=== PATIENT | female | born 1950 | race Caucasian/White ===

== ENCOUNTER → 2021-02-21 15:51 | Outpatient (CLI) | payer MEDICARE, BC, SELFPAY ==
--- NOTE | 2021-02-21 16:04 | CT_ITS ---
STUDY: CT SCAN LOWER EXTREMITY RIGHT.[facility] protocol. REASON FOR EXAM: Female, 70 years old. VARUS Deformity, not ELSEWHERE Classified, r KNEE RADIATION DOSAGE (If Supplied By Facility): CTDIvol = ( 19.20 ) mGy, DLP = ( 1284.14 ) mGycm. Individualized dose optimization techniques were used for this CT.? TECHNIQUE: Multiple axial tomographic images of the right hip joint, right knee joint and right ankle joints were obtained. Coronal and sagittal reconstructions obtained as well. COMPARISON: None. FINDINGS: Imaging of the right hip joint was obtained. There is mild degree of the joint space narrowing. Imaging of the right knee joint was obtained. There is a marked degree of joint space narrowing with tiny subchondral cysts involving the medial compartment of knee joint with evidence of the transverse perforation of the medial femoral condyle and medial tibial plateau. Mild to moderate degree of joint space narrowing of the patellofemoral joint with spur formation. Imaging of the ankle joint was obtained. No significant abnormality is seen. CT/Extremity Lower without Contra IMPRESSION: Marked degree of joint space narrowing and osteoarthritis involving the medial compartment of knee joint. Mild degree of degenerative changes of the patellofemoral joint. Electronically Signed: Aki Salazar MD at 12:36 EDT , Service support ,
== END ==
PROVIDERS: PCP Preventive Medicine Occupational Medicine; Referring Provider Specialist; Visit Provider Specialist
DX: M21.161 Varus deformity, not elsewhere classified, right knee (principal)
CPT/HCPCS: 73700

== ENCOUNTER → 2021-03-03 11:36 | Outpatient (CLI) | payer MEDICARE, BC, SELFPAY ==
--- NOTE | 2021-03-03 11:58 | EKG12_ITS ---
Test Reason : PREOP Blood Pressure : / mmHG Vent. Rate : 064 BPM Atrial Rate : 064 BPM P-R Int : 162 ms QRS Dur : 084 ms QT Int : 422 ms P-R-T Axes : 056 -06 078 degrees QTc Int : 435 ms Normal sinus rhythm Nonspecific ST-segment abnormality Confirmed by RAPHAEL ABERNATHY, JACQUI ([id number]), food editor LENI JEFFRIES ([id number]) on 03/06/2021 9:16:43 AM Referred By: Isma Romero Confirmed By:JACQUI LIM MD
[2021-03-03 12:29] LABS: Absolute Lymphocyte Count 1.24 X10^3/uL (0.83-4.51); Absolute Neutrophil Count 4.9 X10^3/uL (2.0-7.7); Basophil# 0.11 X10^3/uL; Basophil% 1.6 % (0-1); Eosinophil# 0.19 X10^3/uL; Eosinophils% 2.7 % (0-5); Hematocrit 44.3 % (37-47); Hemoglobin 14.1 g/dL (12.0-15.0); Lymphocyte # 1.24 X10^3/ul (0.83-4.51); Lymphocyte % 17.7 % (19-41); Mean Corp Hgb Conc 31.8 g/dL (32-36); Mean Corpuscular Hgb 29.7 pg (27.0-32.0); Mean Corpuscular Volume 93.3 fL (81-99); Mean Platelet Vol. 10.8 fl (6.2-12.0); Monocyte# 0.55 X10^3/uL; Monocyte% 7.9 % (0-10); NRBC Flagged by Analyzer 0 % (0-5); Neutrophil # 4.88 X10^3/uL (2.7-7.7); Neutrophil % 69.8 % (47-70); Platelet Count 245 K/mm3 (150-450); RBC Distribution Width CV 13.5 % (11.6-14.6); RBC Distribution Width SD 46.3 fl (35.1-43.9); Red Blood Count 4.75 M/mm3 (4.2-5.4)
[2021-03-03 12:48] LABS: Anion Gap 6 (5-15); BUN 28 mg/dL (7-18); BUN/Creat Ratio 18.1 RATIO (10-20); Calcium,Total 9.3 mg/dL (8.5-10.1); Chloride 106 mmol/L (98-107); Creatinine, Serum 1.55 mg/dL (0.55-1.02); EST Glomerular Filtration Rate 35 mL/min (>60); Est Glom Filt Rate - Afr Amer 43 mL/min (>60); Glucose 115 mg/dL (74-106); Potassium 4.7 mmol/L (3.5-5.1); Sodium Level 139 mmol/L (136-145)
== END ==
PROVIDERS: PCP Preventive Medicine Occupational Medicine; Referring Provider Physician Assistant Surgical; Visit Provider Physician Assistant Surgical
DX: Z01.810 Encounter for preprocedural cardiovascular examination (principal); Z11.59 Encounter for screening for other viral diseases
CPT/HCPCS: 36415; 80048; 82040; 85025; 87426; 93005; C9803

== ENCOUNTER 2021-08-07 05:47 | Inpatient (IN) | payer MEDICARE, BC, SELFPAY ==
[2021-08-07] VITALS (15 sets, daily range): BP systolic 153–159; BP diastolic 66–81; PULSE 82–109; RESP 20–34; TEMP 36.8–37.8; O2SAT 77–98; BMI 35.8
--- NOTE | 2021-08-07 05:53 | RAD_ITS ---
STUDY: X-RAY CHEST REASON FOR EXAM: Female, 70 years old. Cough, hypoxia and scattered rales TECHNIQUE: AP COMPARISON: 09/30/2016 FINDINGS: The lungs demonstrate patchy bilateral pulmonary opacities. There is no demonstrated pleural abnormality. Normal size heart. Normal mediastinum and mesha. Normal visualized pulmonary arteries. Normal visualized aortic arch and descending thoracic aorta. Normal visualized thoracic spine. Normal visualized ribs, clavicles, and shoulders. There is no demonstrated abnormality of the visualized soft tissue structures of the upper abdomen. RAD/Chest 1 View (Portable) IMPRESSION: Patchy bilateral lung opacities concerning for underlying pneumonia. Electronically Signed: Jam Sands MD at 6:21 EST Tel , Service support ,
--- NOTE | 2021-08-07 05:54 | EKG12_ITS ---
Test Reason : SOB Blood Pressure : / mmHG Vent. Rate : 101 BPM Atrial Rate : 101 BPM P-R Int : 140 ms QRS Dur : 084 ms QT Int : 338 ms P-R-T Axes : 037 -04 072 degrees QTc Int : 438 ms Sinus tachycardia Otherwise normal ECG Confirmed by RAPHAEL ABERNATHY, JACQUI ([id number]), sound editor MARY ARMAS ([id number]) on 08/08/2021 1:52:40 PM Referred By: Confirmed By:JACQUI LIM MD
--- NOTE | 2021-08-07 05:55 | EDS_ITS ---
HPI History of Present Illness Chief Complaint: Shortness of Breath Detail of Chief Complaint: Dyspnea, upper respiratory symptoms, productive cough, diarrhea Informant: patient Onset/Context/Timing Onset: Days (July 30) Context: Sudden Onset Timing: Continuous Quality: Nonproductive cough with shortness of breath and dyspnea on exertion Location: Respiratory Current Severity: Moderate Maximum Severity: Severe Worsened by: Activity Relieved by: Nothing Associated Symptoms Associated Symptoms: Upper respiratory symptoms and loss of appetite Narrative Narrative: Patient is an elderly obese woman with multiple medical problems who presents with upper respiratory symptoms that started yesterday. She denies fever. She does report head pain. She does report congestion denies rhinorrhea or postnasal drainage. She does endorse sore throat. She does have a cough which is productive. She has not noted blood. She is short of breath at rest with increased shortness of breath with minimal activity. She reports decrease appetite, nausea and diarrhea. She denies blood or mucus in her diarrhea. She denies leg swelling or discoloration. She has not noted a rash. She does report aches. Patient has not been vaccinated Prior similar symptoms: No Recent Illness/Hospitalization: No [facility] Medical History (Updated 08/07/21 @ 06:[address] Rudy Dover MD) Abdominal pain Acid reflux Anemia Arthritis Diarrhea Gallbladder problem Glaucoma Hemorrhoid Hx of blood clots Hypertension Nausea Thyroid disease Ulcer Home Medications pantoprazole 40 mg PO DAILY 08/23/13 [History Last Taken 09/04/16 03:00] latanoprost 1 drp EACH EYE QHS 05/12/15 [History Last Taken Unknown] levothyroxine 25 mcg PO SUTUTHSA 05/12/15 [History Last Taken 09/04/16 03:00] omega 4-rwl-pzu-fish oil 1,200 mg PO DAILY 05/12/15 [History Last Taken 08/09/17] timolol maleate 1 drp EACH EYE BID 05/12/15 [History Last Taken Unknown] vitamin E 400 unit PO DAILY 05/12/15 [History Last Taken Unknown] calcium carbonate 1,000 iu PO DAILY 03/05/16 [History Last Taken Unknown] vitamin B comp and C no.3 1 ea PO DAILY 03/05/16 [History Last Taken Unknown] cholecalciferol (vitamin D3) 2,000 unit PO BID 09/03/16 [History Last Taken Unknown] digestive 8-L.acidoph-pectin 1 ea PO BID 01/15/17 [History Last Taken Unknown] trazodone 150 mg tablet 75 mg PO QHS tab 07/17/17 [History Last Taken Unknown] amlodipine 5 mg-benazepril 20 mg capsule 1 cap PO DAILY 05/12/20 [History Last Taken Unknown] celecoxib 200 mg capsule 200 mg PO BID cap 05/12/20 [History Last Taken Unknown] tramadol 50 mg tablet 50 mg PO DAILY 05/12/20 [History Last Taken Unknown] Plant Enzymes 1 dose PO/SL TIDCM 08/07/21 [History Last Taken Unknown] Tumeric 1 cap PO/SL BID 08/07/21 [History Last Taken Unknown] acetaminophen 650 mg PO Q4H PRN 08/07/21 [History Last Taken Unknown] ascorbic acid (vitamin C) [Vitamin C] 500 mg PO DAILY 08/07/21 [History Last Taken Unknown] cholecalciferol (vitamin D3) [Vitamin D3] 15 mcg PO DAILY 08/07/21 [History Last Taken Unknown] cinnamon bark [Cinnamon] 500 mg PO DAILY 08/07/21 [History Last Taken Unknown] cranberry juice 8 ml PO DAILY 08/07/21 [History Last Taken Unknown] magnesium 400 mg PO DAILY 08/07/21 [History Last Taken Unknown] Allergy/AdvReac Type Severity Reaction Status Date / Time bee venom protein (honey bee) Allergy Swelling Verified 08/07/21 05:55 diphenhydramine HCl Allergy Unknown Verified 08/07/21 05:55 [From Benadryl] gluten Allergy Other Verified 08/07/21 05:55 milk Allergy Food Verified 08/07/21 05:55 Allergy propoxyphene napsylate AdvReac Other Verified 08/07/21 05:55 [From Darvocet-N] Family History Mother Arthritis Heart disease Hypertension High cholesterol CVA (cerebral vascular accident) Thyroid disorder Sister Arthritis Father Heart disease Brother Arthritis Hypertension Surgical History History of ligation of vein Port catheter in place Ruptured disk S/P cataract surgery S/P cholecystectomy S/P tonsillectomy S/P tubal ligation Social History (Updated 08/07/21 @ 05:[address] Rudy Dover MD) household members: spouse Smoking Status: Never smoker second hand exposure: No alcohol intake: never substance use type: does not use caffeine: No seatbelt use: always ROS ROS ED Constitutional Constitutional ED: Reports chills; Denies fever(s), sweats or weight loss Eyes Eyes: Denies blurry vision, change in vision or diplopia ENT ENT ED: Reports sore throat; Denies ear pain or rhinorrhea Cardiovascular Cardiovascular: Denies chest pain, orthopnea, palpitations or paroxysmal nocturnal dyspnea Respiratory/Chest Respiratory/Chest: Reports cough, dyspnea, dyspnea on exertion and sputum; Denies orthopnea or paroxysmal nocturnal dyspnea Gastrointestinal Gastrointestinal: Reports diarrhea and nausea; Denies abdominal pain, constipation, melena or vomiting Genitourinary Genitourinary ED: Denies dysuria, hematuria or urinary frequency Musculoskeletal Musculoskeletal: Reports arthralgias and myalgias; Denies back pain or neck pain Integumentary Denies rash Neurologic Neurologic: Reports weakness; Denies headache(s) or paresthesias Hematologic/Lymphatic Hematologic/Lymphatic: Denies anemia, easy bleeding or easy bruising EXAM Physical Exam Const Vital Signs: 08/07/21 05:48 08/07/21 05:51 08/07/21 05:56 Temperature 100.1 F H 100.1 F H Temperature Source Oral Oral Pulse Rate 109 H 109 H Respiratory Rate 34 H 34 H Respiratory Effort Short of Breath Labored Blood Pressure 157/81 H 157/81 H Blood Pressure Mean 106 106 Pulse Ox 77 77 Oxygen Delivery Method Room Air Nasal Cannula Nasal Cannula Oxygen Flow Rate (L/min) 10 10 08/07/21 05:57 08/07/21 06:08 Temperature Temperature Source Pulse Rate Respiratory Rate Respiratory Effort Blood Pressure Blood Pressure Mean Pulse Ox 97 98 Oxygen Delivery Method Nasal Cannula Nasal Cannula Oxygen Flow Rate (L/min) 10 8 Positive well nourished, well developed and obese General Appearance ED: well developed, cyanotic and other Patient appears ill. She has central cyanosis. She appears in mild respiratory distress. ; Negative for diaphoretic, NAD or pallor Nutritional Appearance: obese HEENT Reports dry mucous membranes HEENT Narrative: Ears normal. Nares patent. Negative for trauma or tenderness Mouth ED: Yes dry mucous membranes Mouth: dry mucous membranes Eyes PERRL and EOMs intact bilaterally General Eye ED: Negative for pale conjunctiva or scleral icterus Neck no lymphadenopathy, supple and no JVD General: Negative for tenderness Chest Wall inspection of chest normal Resp No normal respiratory effort and No clear to auscultation bilaterally Auscultation: rales bilateral (Left greater than right lower lung field) lower and diminished lung sounds; Negative for wheezes Cardio regular rhythm, S1 normal heart sound, S2 normal heart sound and no murmurs Rate: tachycardic GI normal to inspection, nondistended, normoactive bowel sounds and non-tender Palpation: soft Back/Spine no CVA tenderness Thoracic Spine / Upper Back: Negative for paraspinal muscle tenderness Extremity normal to inspection General Extremety ED: Negative for tenderness Neuro oriented x3 and CN's II-XII intact bilaterally Sensorium / Orientation: alert Psych mental status grossly normal Skin no rashes or lesions noted and no wounds General Skin Exam: Negative for jaundice or pallor MDM MDM MDM Narrative Medical decision making narrative: Patient with hypoxia and persistent nonproductive cough in the ER. Concern patient has COVID-[address] and respiratory precautions, EKG to rule out cardiac ischemia, chest x-ray to confirm suspicion for pneumonia, CMP to assess renal function, anion gap and electrolytes as well as liver enzymes. Since clinical suspicion is high for COVID she received 6 mg of Decadron. She is presently on 10 L of oxygen since her initial pulse ox of 70%. Will obtain ABG to assess acid-base status and CO2. Lab Data Attestation: I reviewed the patient's lab results. Lab results narrative: ABG on 10 L reveals no significant acid-base disturbance. pH 7.44, PCO2 30, PO2 63.6, bicarb 20.4, base excess -3.7 and saturation 93.1% on 10 L. This does reveal a significant AA gradient. CBC is remarkable for demargination. White count is normal. H&H is unremarkable. Comprehensive metabolic panel is remarkable for mild hyponatremia. Creatinine is elevated and consistent with prior creatinine levels. Glucose is elevated. Albumin is low. Lactate is normal. Labs: Laboratory Results - last 24 hr 08/07/21 08/07/21 08/07/21 06:00 06:00 06:00 WBC 9.1 RBC 5.05 Hgb 14.2 Hct 44.3 MCV 87.7 MCH 28.1 MCHC 32.1 RDW Std Deviation 45.0 H RDW Coeff of Jaya 14.0 Plt Count 211 MPV 10.6 Immature Gran % (Auto) 1.200 H Neut % (Auto) 89.9 H Lymph % (Auto) 5.6 L [place] % (Auto) 3.1 Eos % (Auto) 0.0 Baso % (Auto) 0.2 Absolute Neuts (auto) 8.2 H Absolute Lymphs (auto) 0.51 L Nucleated RBC % 0 Sodium 135 L Potassium 3.8 Chloride 102 Carbon Dioxide 23.0 Anion Gap 10 BUN 20 H Creatinine 1.51 H Estim Creat Clear Calc 33.38 Est GFR (MDRD) Af Amer 44 L Est GFR (MDRD) Non-Af 36 L BUN/Creatinine Ratio 13.2 Glucose 190 H Lactic Acid 1.0 Calcium 8.8 Total Bilirubin 0.50 AST 53 H ALT 36 Alkaline Phosphatase 153 H Total Protein 7.9 Albumin 2.9 L Globulin 5.0 H Albumin/Globulin Ratio 0.6 L COVID test is positive. ABG Data ABG results: ABG 08/07/21 06:07 Specimen Type ART Sample Site R Radial pH 7.44 Bicarbonate Actual 20.4 L Total CO2 21 Base Excess -4 L O2 Saturation 93 L ABG pCO2 30.1 L ABG pO2 64 L Fabian Test Positive O2 Delivery Device Cannula Liter Flow 10.0 Radiography Chest X-Ray - ED: 1 View and Read by ED Physician (Chest x-ray was interpreted by me at 0608. Patient has multilobar patchy predominantly peripheral infiltrates consistent with COVID. Cardiac silhouette is slightly obscured. Size is unremarkable. Osseous structures unremarkable.) Diagnostic Testing: Clinical Impression(s) from Imaging Studies Chest X-Ray 08/07/21 05:53 IMPRESSION: Patchy bilateral lung opacities concerning for underlying pneumonia. Electronically Signed: Jam Sands MD at 6:21 EST Tel , Service support , EKG Initial EKG: Attestation: I personally reviewed and interpreted this EKG as follows: Interpretation: Sinus Tachycardia (Ventricular rate is 101. TX interval 140 ms. QS duration 84 ms. QT duration 338 ms. [place] is normal. Other than the tachycardia the EKG is unremarkable.) Critical Care Time Critical Care Time: Yes Critical care time (excluding procedures): 30-74 minutes (32), Including time spent: (History, physical, documentation, review of prior records, interpretation of laboratory results and initiation of therapy), Discussing w/Patient &/or Family/Automatic Engraver (Initially spoke with patient. Spoke with after he arrived.), Discussing w/Consultants and Arranging Admission or Transfer Discharge Plan Dx/Rx/DC Orders Clinical Impression: Acute respiratory failure with hypoxia, Pneumonia due to 2019 novel coronavirus, Sepsis due to COVID-19, Chronic kidney disease (CKD) stage G3a/A1, moderately decreased glomerular filtration rate (GFR) between 45-59 mL/min/1.73 square meter and albuminuria creatinine ratio less than 30 mg/g, Acute hyperglycemia Disposition Disposition: Acute Care [facility]
[2021-08-07 06:07] LABS: Absolute Lymphocyte Count 0.51 X10^3/uL (0.83-4.51); Absolute Neutrophil Count 8.2 X10^3/uL (2.0-7.7); Basophil# 0.02 X10^3/uL; Basophil% 0.2 % (0-1); Hematocrit 44.3 % (37-47); Hemoglobin 14.2 g/dL (12.0-15.0); Lymphocyte # 0.51 X10^3/ul (0.83-4.51); Lymphocyte % 5.6 % (19-41); Mean Corp Hgb Conc 32.1 g/dL (32-36); Mean Corpuscular Hgb 28.1 pg (27.0-32.0); Mean Corpuscular Volume 87.7 fL (81-99); Mean Platelet Vol. 10.6 fl (6.2-12.0); Monocyte# 0.28 X10^3/uL; Monocyte% 3.1 % (0-10); NRBC Flagged by Analyzer 0 % (0-5); Neutrophil # 8.22 X10^3/uL (2.7-7.7); Neutrophil % 89.9 % (47-70); POSITIVE DIFFERENTIAL YES; POSITIVE MORPHOLOGY YES; Platelet Count 211 K/mm3 (150-450); Red Blood Count 5.05 M/mm3 (4.2-5.4); White Blood Count 9.1 K/mm3 (4.4-11.0)
[2021-08-07] MEDS: 0.9% Normal Saline 1,000 ML 1000 ML IV (06:07)
[2021-08-07 06:08] LABS: Differential Indicated SCAN CRITERIA MET
[2021-08-07] MEDS: dexAMETHasone 10 MG/ML Vial 6 MG IV (06:08)
[2021-08-07 06:11] LABS: Allen Test Positive; Base Excess -4 mmol/L (-2 to +2); Bicarbonate 20.4 mmol/L (22-26); Blood Gas Specimen Type ART; O2 Delivery Device Cannula; PO2 64 mmHG (75-100); SITE R Radial; SO2 93 % (95-99); Total Carbon Dioxide 21 mmol/L; pCO2 30.1 mmHg (35-45); pH 7.44 (7.35-7.45)
[2021-08-07 06:21] LABS: ALB/GLOB Ratio 0.6 RATIO (0.9-2.4); AST(SGOT) 53 U/L (15-37); Alanine Aminotransfer ALT/SGPT 36 U/L (13-56); Albumin, Serum 2.9 g/dL (3.2-5.0); Alkaline Phosphatase 153 U/L (45-117); Anion Gap 10 (5-15); BUN 20 mg/dL (7-18); BUN/Creat Ratio 13.2 RATIO (10-20); Calcium,Total 8.8 mg/dL (8.5-10.1); Chloride 102 mmol/L (98-107); Creatinine, Serum 1.51 mg/dL (0.55-1.02); EST Glomerular Filtration Rate 36 mL/min (>60); Est Glom Filt Rate - Afr Amer 44 mL/min (>60); Estimated Creatinine Clearance 33.38 ml/min; Glucose 190 mg/dL (74-106); Potassium 3.8 mmol/L (3.5-5.1); Protein, Total 7.9 g/dL (6.4-8.2); Sodium Level 135 mmol/L (136-145)
--- NOTE | 2021-08-07 07:15 | HP.PCM.HOS_ITS ---
HPI - General General Date of Admission: 08/07/21 Date of Service: 08/07/21 Chief Complaint: Shortness of breath HPI Narrative CAROLINA SINGH, is a 70 F who presents shortness of breath. Patient states this started on 30 July. In addition to shortness of breath patient complains of progressive generalized weakness persistent cough nausea and diarrhea. Presented to the emergency department in view of worsening symptoms. She tested positive for COVID. Chest x-ray obtained demonstrated patchy bilateral lung opacities. Admitted to monitored bed in view of significant hypoxia for subsequent management [facility] Medical History Abdominal pain Acid reflux Anemia Arthritis Diarrhea Gallbladder problem Glaucoma Hemorrhoid Hx of blood clots Hypertension Nausea Thyroid disease Ulcer Home Medications pantoprazole 40 mg PO DAILY 08/23/13 [History Last Taken 09/04/16 03:00] latanoprost 1 drp EACH EYE QHS 05/12/15 [History Last Taken Unknown] levothyroxine 50 mcg PO DAILY 05/12/15 [History Last Taken 09/04/16 03:00] omega 4-rst-fzt-fish oil 1,200 mg PO BID 05/12/15 [History Last Taken 08/09/17] timolol maleate 1 drp EACH EYE BID 05/12/15 [History Last Taken Unknown] vitamin E 400 unit PO DAILY 05/12/15 [History Last Taken Unknown] calcium carbonate 1,000 iu PO DAILY 03/05/16 [History Last Taken Unknown] vitamin B comp and C no.3 1 ea PO DAILY 03/05/16 [History Last Taken Unknown] cholecalciferol (vitamin D3) 1,000 unit PO DAILY 09/03/16 [History Last Taken Unknown] digestive 8-L.acidoph-pectin 1 ea PO DAILY 01/15/17 [History Last Taken Unknown] trazodone 150 mg tablet 75 mg PO QHS tab 07/17/17 [History Last Taken Unknown] amlodipine 5 mg-benazepril 20 mg capsule 1 cap PO DAILY 05/12/20 [History Last Taken Unknown] celecoxib 200 mg capsule 200 mg PO DAILY cap 05/12/20 [History Last Taken Unknown] tramadol 50 mg tablet 50 - 100 mg PO Q8H PRN PRN 05/12/20 [History Last Taken Unknown] Plant Enzymes 1 dose PO/SL TIDCM 08/07/21 [History Last Taken Unknown] Tumeric 1 cap PO/SL BID 08/07/21 [History Last Taken Unknown] acetaminophen 650 mg PO Q4H PRN 08/07/21 [History Last Taken Unknown] ascorbic acid (vitamin C) [Vitamin C] 500 mg PO DAILY 08/07/21 [History Last Taken Unknown] cholecalciferol (vitamin D3) [Vitamin D3] 15 mcg PO DAILY 08/07/21 [History Last Taken Unknown] cinnamon bark [Cinnamon] 500 mg PO DAILY 08/07/21 [History Last Taken Unknown] cranberry juice 8 ml PO DAILY 08/07/21 [History Last Taken Unknown] magnesium 400 mg PO DAILY 08/07/21 [History Last Taken Unknown] Allergy/AdvReac Type Severity Reaction Status Date / Time bee venom protein (honey bee) Allergy Swelling Verified 08/07/21 05:55 diphenhydramine HCl Allergy Unknown Verified 08/07/21 05:55 [From Benadryl] gluten Allergy Other Verified 08/07/21 05:55 milk Allergy Food Verified 08/07/21 05:55 Allergy propoxyphene napsylate AdvReac Other Verified 08/07/21 05:55 [From Darvocet-N] Family History Mother Arthritis Heart disease Hypertension High cholesterol CVA (cerebral vascular accident) Thyroid disorder Sister Arthritis Father Heart disease Brother Arthritis Hypertension Surgical History History of ligation of vein Port catheter in place Ruptured disk S/P cataract surgery S/P cholecystectomy S/P tonsillectomy S/P tubal ligation Social History household members: spouse Smoking Status: Never smoker second hand exposure: No alcohol intake: never substance use type: does not use caffeine: No seatbelt use: always ROS ROS Narrative GENERAL: fever, chills, weight loss, HEENT: sinus congestion, or drainage, RESPIRATORY: cough, sputum production, CARDIAC: denies chest pain, palpitations, GASTROINTESTINAL: denies abdominal pain, nausea, GENITOURINARY: denies dysuria, urgency, frequency, EXTREMITY: denies swelling MUSCULOSKELETAL: denies current joint pain NEUROLOGIC: denies focal numbness, weakness, HEMATOLOGIC: denies easy bruising INTEGUMENT: denies rashes PSYCHIATRIC: denies suicidal or homicidal ideation Vital Signs Vital Signs Vital Signs: 08/07/21 05:48 08/07/21 05:51 08/07/21 05:56 Temperature 100.1 F H 100.1 F H Temperature Source Oral Oral Pulse Rate 109 H 109 H Respiratory Rate 34 H 34 H Respiratory Effort Short of Breath Labored Blood Pressure 157/81 H 157/81 H Blood Pressure Mean 106 106 Pulse Ox 77 77 Oxygen Delivery Method Room Air Nasal Cannula Nasal Cannula Oxygen Flow Rate (L/min) 10 10 08/07/21 05:57 08/07/21 06:08 Temperature Temperature Source Pulse Rate Respiratory Rate Respiratory Effort Blood Pressure Blood Pressure Mean Pulse Ox 97 98 Oxygen Delivery Method Nasal Cannula Nasal Cannula Oxygen Flow Rate (L/min) 10 8 Weight Weight: 100.7 kg Body Mass Index (BMI) 35.8 Physical Exam Narrative GENERAL: cooperative HEENT: Atraumatic; EYES; Anicteric, Normal Conjunctiva NECK; supple, normal thyroid, RESPIRATORY: Diminished to auscultation CARDIOVASCULAR: Regular S1 S2, GI: soft, normoactive bowel sounds, : No Renal angle tenderness; EXTREMITIES: No edema, no clubbing, MUSCULOSKELETAL: no muscle waisting NEURO: Awake; no lateralizing signs. SKIN: No Rash PSYCH; Flat affect Results Lab / Micro Data Result Diagrams: 08/07/21 06:00 08/07/21 06:00 Labs: Laboratory Results - last 24 hr 08/07/21 06:00: WBC 9.1, RBC 5.05, Hgb 14.2, Hct 44.3, MCV 87.7, MCH 28.1, MCHC 32.1, RDW Std Deviation 45.0 H, RDW Coeff of Jaya 14.0, Plt Count 211, MPV 10.6, Immature Gran % (Auto) 1.200 H, Neut % (Auto) 89.9 H, Lymph % (Auto) 5.6 L, [place] % (Auto) 3.1, Eos % (Auto) 0.0, Baso % (Auto) 0.2, Absolute Neuts (auto) 8.2 H, Absolute Lymphs (auto) 0.51 L, Nucleated RBC % 0 08/07/21 06:00: Sodium 135 L, Potassium 3.8, Chloride 102, Carbon Dioxide 23.0, Anion Gap 10, BUN 20 H, Creatinine 1.51 H, Estim Creat Clear Calc 33.38, Est GFR (MDRD) Af Amer 44 L, Est GFR (MDRD) Non-Af 36 L, BUN/Creatinine Ratio 13.2, Glu cose 190 H, Calcium 8.8, Total Bilirubin 0.50, AST 53 H, ALT 36, Alkaline Phosphatase 153 H, Total Protein 7.9, Albumin 2.9 L, Globulin 5.0 H, Albumin/Globulin Ratio 0.6 L 08/07/21 06:00: Lactic Acid 1.0 Micro: Microbiology 08/07/21 06:05 Nasal Secretion SARS-CoV-2 Antigen (Rapid) - Final SARS-CoV-2 (COVID 19) ABG Data ABG results: ABG 08/07/21 06:07 Specimen Type ART Sample Site R Radial pH 7.44 Bicarbonate Actual 20.4 L Total CO2 21 Base Excess -4 L O2 Saturation 93 L ABG pCO2 30.1 L ABG pO2 64 L Fabian Test Positive O2 Delivery Device Cannula Liter Flow 10.0 Radiology Impression Chest X-Ray 08/07/21 05:53 IMPRESSION: Patchy bilateral lung opacities concerning for underlying pneumonia. Electronically Signed: Jam Sands MD at 6:21 EST Tel , Service support , Assessment & Plan Assessment/Plan (1) Pneumonia due to 2019 novel coronavirus: (2) Acute respiratory failure with hypoxia: PLAN: Patient is a 70-year-old lady unvaccinated against COVID-19 presenting with an 8-day history of progressive shortness of breath with associated cough 1. Acute hypoxic respiratory failure ? Secondary to COVID-19 pneumonia admitted to regular nursing floor placed on supplemental oxygen started on Decadron and remdesivir. Patient progressed being monitored with daily CBC BMPs as well as D-dimer LDH and CRP is 2. COVID-19 pneumonia ? Management as described above 3. Chronic kidney disease stage IIIa ? Patient creatinine at baseline. Plan is to monitor closely in view of patient presentation. Patient will be monitored with daily BMPs 4. Hypothyroidism ? On levothyroxine did continue 5. Hyperglycemia ? Patient not a known hypertensive order hemoglobin A1c. Also placed on Accu- Cheks before meals and at bedtime in view of patient being on concomitant steroid 6. Essential hypertension ? Did continue with home meds with plan to adjust doses if required 7. DVT prophylaxis ? SC Lovenox dose adjusted for kidney function Advance planning; did discuss with the patient and family regarding advanced directives as well as CODE STATUS. Did explain the various scenarios involved ( FULL CODE, DNR CCA, DNR CCA with no intubation, and DNR CC and what each meant) patient elected full code with CPR and intubation if needed. Order was placed. Time spent on discussion 18 minutes. Charges/Coding Visit Charges Inpatient E&M: 21852 Init Hosp L3 Procedures Hospitalists Procedures: 41871 Advncd Care Plan 30 Min
--- NOTE | 2021-08-07 09:20 | NURSING ---
Pandemic Documentation Initiated Emergency Documentation Start: 08/07/21 09:18 Freq: ONCE Status: Active Protocol: Created 08/07/21 09:19 (Rec: 08/07/21 09:19 [id number])
--- NOTE | 2021-08-07 10:50 | CASEMGMT ---
KARLIE RESENDEZ Assessment: Face to Face with pt for initial transition planning/care coordination assessment. RN MAL introduced self and role at [facility], pt voices understanding and consents to assessment. Pt is A/O x4 and answers all questions appropriately at this time. Pt lying in bed with O2 on in no distress. Care providers, pharmacy, and demographics verified/updated. Admitting Dx: acute hypoxemic resp failure secondary to COVID PCP:Jessica Specialists: labor delivery specialist Preferred [facility]acy: [facility] Insurance: Cameron GALLEGOS Prescription Benefit: yes LW/HPOA: Pt denies having a LW/DPOA and denies need for info regarding AD. LNOK: Robert Andino, Living Arrangements: Pt lives with in a single story house with 3-4 steps to enter without a rail. Pt reports being I in ADL's and denies concerns at home. Pt states currently she is too weak to even get out of bed. Transportation: Pt drives self and denies concerns with transportation. DME/HHC/SNF: Pt has a cane and walker but she does not use. Recommended pt obtain a pulse ox at home. Pt denies previous HHC or SNF stays. Discussed HHC with pt as she reports she is very weak. Pt states she may be agreeable to this. She wants to wait and see how she does in the hospital. Pt states no further concerns/needs. CM to follow. Advised pt to ask CM if any further question/concerns/needs arise, voices understanding. Pt first test positive for COVID at [facility]. Pt states her has not been tested. She is able to quarantine from him using separate bedrooms and bathrooms. Pt has family who can provide groceries and supplies while in quarantine. Provided pt with a local in network list of DME companies should pt be dc'd on O2, pt denies preference. Pt Goal: Home Plan:Home, follow for HHC and O2.
[2021-08-07] MEDS: Ascorbic Acid 500 MG Tablet PO (11:00)
[2021-08-07] MEDS: Calcium (Elemental) 500 MG Tablet PO (11:00)
[2021-08-07] MEDS: Levothyroxine 50 MCG Tablet PO (11:00)
[2021-08-07] MEDS: Magnesium Chloride 64 MG Delay Rel.Tablet 128 MG PO (11:00)
[2021-08-07] MEDS: Enoxaparin 30 MG/0.3 ML Syringe SC ×2 (11:00→22:40)
[2021-08-07] MEDS: Lisinopril 20 MG Tablet PO (11:01)
[2021-08-07] MEDS: Cholecalciferol (VIT D3) 25 MCG TABLET (1,000 UNITS) 50 MCG PO (11:01)
[2021-08-07] MEDS: Pantoprazole Sodium 40 MG Tablet PO (11:01)
[2021-08-07] MEDS: amLODIPine 5 MG Tablet PO (11:01)
[2021-08-07] MEDS: Vitamin B Comp W-C Capsule 1 CAP PO (11:01)
[2021-08-07] MEDS: Acetaminophen 325 MG Tablet 650 MG PO ×2 (12:57→23:25)
[2021-08-07 13:33] LABS: Alkaline Phosphatase 153 U/L (45-117)
--- NOTE | 2021-08-07 15:18 | CPS ---
Encouraged pt to lay on her side or belly when in bed, to use the breathing exercises on her own, to get up in the chair for meals, and explained why & the importance.
--- NOTE | 2021-08-07 15:51 | CON.PCM.ID_ITS ---
Assessment & Plan Assessment/Plan (1) Acute respiratory failure with hypoxia: (2) Pneumonia due to 2019 novel coronavirus: PLAN: Sx started 07/30, isolate until 08/19/21. Unvaccinated, recommend vaccine in one month. On dex and remdesivir. Discussed baricitinib, and she refuses, says she doesn't want anything that interacts with her immune system. Will follow, thank you HPI Consult Data Date of Consult: 08/07/21 HPI Narrative HPI Narrative: CAROLINA SINGH, is a 70 F who presented 08/07 with sx since 07/30, c/o headache, fever, chills, cough, aches, fatigue. with covid, improving. Came to ED with worsening SOB, admitted on dex, remdesivir, high flow O2. Fee ling about the same. Unvaccinated. Full ROS performed and neg except as noted above. [facility] Medical History Abdominal pain Acid reflux Anemia Arthritis Diarrhea Gallbladder problem Glaucoma Hemorrhoid Hx of blood clots Hypertension Nausea Thyroid disease Ulcer Home Medications pantoprazole 40 mg PO DAILY 08/23/13 [History Last Taken 09/04/16 03:00] latanoprost 1 drp EACH EYE QHS 05/12/15 [History Last Taken Unknown] levothyroxine 50 mcg PO DAILY 05/12/15 [History Last Taken 09/04/16 03:00] omega 3-ene-uzf-fish oil 1,200 mg PO BID 05/12/15 [History Last Taken 08/09/17] timolol maleate 1 drp EACH EYE BID 05/12/15 [History Last Taken Unknown] vitamin E 400 unit PO DAILY 05/12/15 [History Last Taken Unknown] calcium carbonate 1,000 iu PO DAILY 03/05/16 [History Last Taken Unknown] vitamin B comp and C no.3 1 ea PO DAILY 03/05/16 [History Last Taken Unknown] cholecalciferol (vitamin D3) 1,000 unit PO DAILY 09/03/16 [History Last Taken Unknown] digestive 8-L.acidoph-pectin 1 ea PO DAILY 01/15/17 [History Last Taken Unknown] trazodone 150 mg tablet 75 mg PO QHS tab 07/17/17 [History Last Taken Unknown] amlodipine 5 mg-benazepril 20 mg capsule 1 cap PO DAILY 05/12/20 [History Last Taken Unknown] celecoxib 200 mg capsule 200 mg PO DAILY cap 05/12/20 [History Last Taken Unknown] tramadol 50 mg tablet 50 - 100 mg PO Q8H PRN PRN 05/12/20 [History Last Taken Unknown] Plant Enzymes 1 dose PO/SL TIDCM 08/07/21 [History Last Taken Unknown] Tumeric 1 cap PO/SL BID 08/07/21 [History Last Taken Unknown] acetaminophen 650 mg PO Q4H PRN 08/07/21 [History Last Taken Unknown] ascorbic acid (vitamin C) [Vitamin C] 500 mg PO DAILY 08/07/21 [History Last Taken Unknown] cholecalciferol (vitamin D3) [Vitamin D3] 15 mcg PO DAILY 08/07/21 [History Last Taken Unknown] cinnamon bark [Cinnamon] 500 mg PO DAILY 08/07/21 [History Last Taken Unknown] cranberry juice 8 ml PO DAILY 08/07/21 [History Last Taken Unknown] dorzolamide-timolol 1 drp EACH EYE BID 08/07/21 [History Last Taken 08/06/21 20:00] magnesium 400 mg PO DAILY 08/07/21 [History Last Taken Unknown] Allergy/AdvReac Type Severity Reaction Status Date / Time bee venom protein (honey bee) Allergy Swelling Verified 08/07/21 05:55 diphenhydramine HCl Allergy Unknown Verified 08/07/21 05:55 [From Benadryl] gluten Allergy Other Verified 08/07/21 05:55 milk Allergy Food Verified 08/07/21 05:55 Allergy propoxyphene napsylate AdvReac Other Verified 08/07/21 05:55 [From Darvocet-N] Family History Mother Arthritis Heart disease Hypertension High cholesterol CVA (cerebral vascular accident) Thyroid disorder Sister Arthritis Father Heart disease Brother Arthritis Hypertension Surgical History History of ligation of vein Port catheter in place Ruptured disk S/P cataract surgery S/P cholecystectomy S/P tonsillectomy S/P tubal ligation Social History household members: spouse Smoking Status: Never smoker second hand exposure: No alcohol intake: never substance use type: does not use caffeine: No seatbelt use: always Physical Exam Const alert, oriented x3 and no apparent distress General Appearance: cooperative Exam Limitations: no limitations HEENT normocephalic and head/scalp atraumatic Eyes PERRL and EOMs intact bilaterally Neck supple and No nodes Resp Auscultation: diminished lung sounds Cardio regular rate and regular rhythm GI normal to inspection, nondistended, normoactive bowel sounds Extremity no clubbing, cyanosis or edema Skin no rashes or lesions noted Neuro CN's II-XII intact bilaterally Lab / Micro Data Result Diagrams: 08/07/21 06:00 08/07/21 06:00 Labs: Laboratory Results - last 24 hr 08/07/21 06:00: WBC 9.1, RBC 5.05, Hgb 14.2, Hct 44.3, MCV 87.7, MCH 28.1, MCHC 32.1, RDW Std Deviation 45.0 H, RDW Coeff of Jaya 14.0, Plt Count 211, MPV 10.6, Immature Gran % (Auto) 1.200 H, Neut % (Auto) 89.9 H, Lymph % (Auto) 5.6 L, [place] % (Auto) 3.1, Eos % (Auto) 0.0, Baso % (Auto) 0.2, Absolute Neuts (auto) 8.2 H, Absolute Lymphs (auto) 0.51 L, Nucleated RBC % 0 08/07/21 06:00: Sodium 135 L, Potassium 3.8, Chloride 102, Carbon Dioxide 23.0, Anion Gap 10, BUN 20 H, Creatinine 1.51 H, Estim Creat Clear Calc 33.38, Est GFR (MDRD) Af Amer 44 L, Est GFR (MDRD) Non-Af 36 L, BUN/Creatinine Ratio 13.2, Glucose 190 H, Calcium 8.8, Total Bilirubin 0.50, AST 53 H, ALT 36, Alkaline Phosphatase 153 H, Total Protein 7.9, Albumin 2.9 L, Globulin 5.0 H, Albumin/Globulin Ratio 0.6 L 08/07/21 06:00: Lactic Acid 1.0 08/07/21 06:00: C-React Prot Ext Range 184.00 H 08/07/21 12:20: Alkaline Phosphatase 153 H Micro: Microbiology 08/07/21 06:05 Nasal Secretion SARS-CoV-2 Antigen (Rapid) - Final SARS-CoV-2 (COVID 19) ABG Data ABG results: ABG 08/07/21 06:07 Specimen Type ART Sample Site R Radial pH 7.44 Bicarbonate Actual 20.4 L Total CO2 21 Base Excess -4 L O2 Saturation 93 L ABG pCO2 30.1 L ABG pO2 64 L Fabian Test Positive O2 Delivery Device Cannula Liter Flow 10.0 Radiology Impression Chest X-Ray 08/07/21 05:53 IMPRESSION: Patchy bilateral lung opacities concerning for underlying pneumonia. Electronically Signed: Jam Sands MD at 6:21 EST Tel , Service support ,
[2021-08-07] MEDS: traZODone 50 MG Tablet 75 MG PO (22:39)
[2021-08-07] MEDS: Timolol 0.5% 5ML OPTH.BTL 1 DRP OPHTHALMIC (22:40)
[2021-08-07] MEDS: Latanoprost 0.005% 1 Bottle 1 DRP EACH EYE (22:40)
[2021-08-07] MEDS: 0.9% Saline Lock 10 ML Syringe IV (22:41)
[2021-08-07] MEDS: Dorzolamide 2% 10ml Bottle 1 DRP OPHTHALMIC (22:41)
[2021-08-08] VITALS (24 sets, daily range): BP systolic 152–163; BP diastolic 78–90; PULSE 78–97; RESP 18–20; TEMP 36.7–37.2; O2SAT 76–94
[2021-08-08 04:54] LABS: Hematocrit 40.3 % (37-47); Hemoglobin 13.5 g/dL (12.0-15.0); Mean Corp Hgb Conc 33.5 g/dL (32-36); Mean Corpuscular Hgb 28.7 pg (27.0-32.0); Mean Corpuscular Volume 85.6 fL (81-99); Mean Platelet Vol. 10.6 fl (6.2-12.0); Platelet Count 246 K/mm3 (150-450); RBC Distribution Width CV 14.1 % (11.6-14.6); RBC Distribution Width SD 44.1 fl (35.1-43.9); Red Blood Count 4.71 M/mm3 (4.2-5.4); White Blood Count 10.8 K/mm3 (4.4-11.0)
[2021-08-08 05:23] LABS: ALB/GLOB Ratio 0.5 RATIO (0.9-2.4); AST(SGOT) 51 U/L (15-37); Alanine Aminotransfer ALT/SGPT 34 U/L (13-56); Albumin, Serum 2.3 g/dL (3.2-5.0); Alkaline Phosphatase 135 U/L (45-117); Anion Gap 8 (5-15); BUN 23 mg/dL (7-18); BUN/Creat Ratio 18.9 RATIO (10-20); Calcium,Total 8.7 mg/dL (8.5-10.1); Chloride 106 mmol/L (98-107); Creatinine, Serum 1.22 mg/dL (0.55-1.02); EST Glomerular Filtration Rate 47 mL/min (>60); Est Glom Filt Rate - Afr Amer 56 mL/min (>60); Estimated Creatinine Clearance 41.32 ml/min; Globulin 4.6 g/dL (2.2-4.2); Glucose 151 mg/dL (74-106); Protein, Total 6.9 g/dL (6.4-8.2); Sodium Level 137 mmol/L (136-145)
--- NOTE | 2021-08-08 07:17 | EX.PCM.CONCC ---
Assessment & Plan Assessment/Plan (1) Acute respiratory failure with hypoxia: (2) Pneumonia due to 2019 novel coronavirus: PLAN: RECOMMENDATIONS: 1. Wean FiO2 to maintain oxygen saturations at or above 90%. 2. Continue prophylactic Lovenox. 3. Continue Decadron to complete 10 days of therapy. 4. Continue remdesivir as ordered. 5. Awake prone positioning was encouraged. 6. Diuretics, as needed, to maintain euvolemic state. IMPRESSIONS: 1. Acute hypoxemic respiratory failure secondary to COVID-19 pneumonia The patient was initially admitted to the hospital on August 07 with worsening dyspnea and cough. Symptom onset was sometime around July 30. CTA chest was negative for PE but did demonstrate bilateral groundglass opacities. The patient was placed on remdesivir, Decadron and prophylactic Lovenox. The patient did ultimately refused baricitinib. She is currently maintaining appropriate oxygen saturations on Airvo heated high flow. Diuretics can be utilized as needed to maintain euvolemic state. Awake prone positioning was encouraged. 2. Obesity/hypertension/hypothyroidism/GERD Complicates care, management, recovery and prognosis. Continue home medications as indicated. This note was generated with [employer] dictation software. It may contain incorrect words, spelling, and punctuation that were not noted in checking the note before signing. HPI Consult Data Date of Consult: 08/08/21 HPI Narrative Reason for Consultation: Acute hypoxemic respiratory failure secondary to COVID-19 pneumonia HPI Narrative: The patient is a 70-year-old female, with a history as outlined below, who presented to the emergency department on August 07 with worsening dyspnea and cough. Symptom onset was sometime around July 30. The patient is unvaccinated against coronavirus. The patient's is also positive for coronavirus. On presentation to the emergency department, the patient was noted to have a low-grade fever and was tachycardic and tachypneic. Initial laboratory evaluation demonstrated no evidence of a leukocytosis. Chemistry profile was notable for a creatinine of 1.5. AST was increased to 53 with an alkaline phosphatase of 153. CRP was elevated to 184. Chest x-ray demonstrated bilateral airspace opacities. The patient was initially started on remdesivir, Decadron and prophylactic Lovenox. She was admitted to the medical surgical floor for further management. The patient was already evaluated by infectious diseases and refused baricitinib. Her oxygenation status has worsened. She is currently requiring heated high flow with an FiO2 of 92% and flow rate of 60 L/min. [facility] Medical History Abdominal pain Acid reflux Anemia Arthritis Diarrhea Gallbladder problem Glaucoma Hemorrhoid Hx of blood clots Hypertension Nausea Thyroid disease Ulcer Home Medications pantoprazole 40 mg PO DAILY 08/23/13 [History Last Taken 09/04/16 03:00] latanoprost 1 drp EACH EYE QHS 05/12/15 [History Last Taken Unknown] levothyroxine 50 mcg PO DAILY 05/12/15 [History Last Taken 09/04/16 03:00] omega 6-izy-zro-fish oil 1,200 mg PO BID 05/12/15 [History Last Taken 08/09/17] timolol maleate 1 drp EACH EYE BID 05/12/15 [History Last Taken Unknown] vitamin E 400 unit PO DAILY 05/12/15 [History Last Taken Unknown] calcium carbonate 1,000 iu PO DAILY 03/05/16 [History Last Taken Unknown] vitamin B comp and C no.3 1 ea PO DAILY 03/05/16 [History Last Taken Unknown] cholecalciferol (vitamin D3) 1,000 unit PO DAILY 09/03/16 [History Last Taken Unknown] digestive 8-L.acidoph-pectin 1 ea PO DAILY 01/15/17 [History Last Taken Unknown] trazodone 150 mg tablet 75 mg PO QHS tab 07/17/17 [History Last Taken Unknown] amlodipine 5 mg-benazepril 20 mg capsule 1 cap PO DAILY 05/12/20 [History Last Taken Unknown] celecoxib 200 mg capsule 200 mg PO DAILY cap 05/12/20 [History Last Taken Unknown] tramadol 50 mg tablet 50 - 100 mg PO Q8H PRN PRN 05/12/20 [History Last Taken Unknown] Plant Enzymes 1 dose PO/SL TIDCM 08/07/21 [History Last Taken Unknown] Tumeric 1 cap PO/SL BID 08/07/21 [History Last Taken Unknown] acetaminophen 650 mg PO Q4H PRN 08/07/21 [History Last Taken Unknown] ascorbic acid (vitamin C) [Vitamin C] 500 mg PO DAILY 08/07/21 [History Last Taken Unknown] cholecalciferol (vitamin D3) [Vitamin D3] 15 mcg PO DAILY 08/07/21 [History Last Taken Unknown] cinnamon bark [Cinnamon] 500 mg PO DAILY 08/07/21 [History Last Taken Unknown] cranberry juice 8 ml PO DAILY 08/07/21 [History Last Taken Unknown] dorzolamide-timolol 1 drp EACH EYE BID 08/07/21 [History Last Taken 08/06/21 20:00] magnesium 400 mg PO DAILY 08/07/21 [History Last Taken Unknown] Allergy/AdvReac Type Severity Reaction Status Date / Time bee venom protein (honey bee) Allergy Swelling Verified 08/07/21 05:55 diphenhydramine HCl Allergy Unknown Verified 08/07/21 05:55 [From Benadryl] gluten Allergy Other Verified 08/07/21 05:55 milk Allergy Food Verified 08/07/21 05:55 Allergy propoxyphene napsylate AdvReac Other Verified 08/07/21 05:55 [From Darvocet-N] Family History Mother Arthritis Heart disease Hypertension High cholesterol CVA (cerebral vascular accident) Thyroid disorder Sister Arthritis Father Heart disease Brother Arthritis Hypertension Surgical History History of ligation of vein Port catheter in place Ruptured disk S/P cataract surgery S/P cholecystectomy S/P tonsillectomy S/P tubal ligation Social History household members: spouse Smoking Status: Never smoker second hand exposure: No alcohol intake: never substance use type: does not use caffeine: No seatbelt use: always ROS Constitutional Constitutional: Reports body ache(s), fatigue, fever(s) and headache(s) Eyes Eyes: Denies blurry vision or change in vision ENT HEENT: Reports headache(s); Denies epistaxis or loss taste/smell Cardiovascular Cardiovascular: Reports dyspnea; Denies chest pain Respiratory/Chest Respiratory/Chest: Reports cough and dyspnea Gastrointestinal Gastrointestinal: Denies abdominal pain, diarrhea, nausea or vomiting Genitourinary Genitourinary: Denies difficulty urinating Musculoskeletal Musculoskeletal: Reports myalgias; Denies arthralgias or back pain Integumentary Integumentary: Denies lesions, rash or skin ulcer Neurologic Neurologic: Denies abnormal gait or abnormal speech Psychiatric Psychiatric: Denies anxiety Endocrine Endocrinology: Reports fatigue Hematologic/Lymphatic Hematologic/Lymphatic: Denies easy bleeding or easy bruising Physical Exam Const alert and no apparent distress Constitutional Narrative: Fatigued in appearance. General Appearance: cooperative Nutritional Appearance: obese HEENT normocephalic and head/scalp atraumatic Eyes PERRL, EOMs intact bilaterally and conjunctivae normal Neck supple General: trachea midline Chest inspection of chest normal Resp normal respiratory effort Auscultation: diminished lung sounds; Negative for rales, rhonchi or wheezes Cardio regular rate and regular rhythm GI normal to inspection, nondistended, normoactive bowel sounds Extremity no clubbing, cyanosis or edema Skin no rashes or lesions noted Neuro CN's II-XII intact bilaterally, moves all extremities and no focal motor deficits Psych Mood & Affect: flat affect Lab / Micro Data Result Diagrams: 08/08/21 04:15 08/08/21 04:15 Labs: Laboratory Results - last 24 hr 08/07/21 06:00: C-React Prot Ext Range 184.00 H 08/07/21 12:20: Alkaline Phosphatase 153 H 08/08/21 04:15: WBC 10.8, RBC 4.71, Hgb 13.5, Hct 40.3, MCV 85.6, MCH 28.7, MCHC 33.5, RDW Std Deviation 44.1 H, RDW Coeff of Jaya 14.1, Plt Count 246, MPV 10.6 08/08/21 04:15: Sodium 137, Potassium 4.0, Chloride 106, Carbon Dioxide 23.0, Anion Gap 8, BUN 23 H, Creatinine 1.22 H, Estim Creat Clear Calc 41.32, Est GFR (MDRD) Af Amer 56 L, Est GFR (MDRD) Non-Af 47 L, BUN/Creatinine Ratio 18.9, Glucose 151 H, Calcium 8.7, Total Bilirubin 0.30, AST 51 H, ALT 34, Alkaline Phosphatase 135 H, Total Protein 6.9, Albumin 2.3 L, Globulin 4.6 H, Albumin/Globulin Ratio 0.5 L Micro: Microbiology 08/07/21 06:05 Nasal Secretion SARS-CoV-2 Antigen (Rapid) - Final SARS-CoV-2 (COVID 19) Charges/Coding Visit Charges Inpatient E&M: 16324 Init Hosp L3
--- NOTE | 2021-08-08 07:33 | PN.HOSP_ITS ---
Subjective Subjective Patient admitted to regular nursing floor with acute hypoxic respiratory failure secondary to COVID-19. Patient is currently requiring high flow oxygen via Vapotherm. Patient was offered baricitinib by infectious disease patient declined Objective Data Objective Data Vital Signs: Vital Signs Temp Pulse Resp BP Pulse Ox 99.0 F 88 19 H 156/84 H 92 08/08/21 04:29 08/08/21 06:59 08/08/21 06:59 08/08/21 04:29 08/08/21 06:59 Oxygen Flow Rate (L/min) 60 Oxygen Delivery Method Airvo Weight: 100.7 kg Body Mass Index (BMI) 35.8 Intake & Output: Intake and Output for Last 24 Hours 08/06/21 08/07/21 08/08/21 23:59 23:59 23:59 Intake Total 2250 / 2250 900 / 900 Output Total 500 / 500 Balance 1750 / 1750 900 / 900 Lab / Micro Data Result Diagrams: 08/08/21 04:15 08/08/21 04:15 Labs: Laboratory Results - last 24 hr 08/07/21 06:00: C-React Prot Ext Range 184.00 H 08/07/21 12:20: Alkaline Phosphatase 153 H 08/08/21 04:15: WBC 10.8, RBC 4.71, Hgb 13.5, Hct 40.3, MCV 85.6, MCH 28.7, MCHC 33.5, RDW Std Deviation 44.1 H, RDW Coeff of Jaya 14.1, Plt Count 246, MPV 10.6 08/08/21 04:15: Sodium 137, Potassium 4.0, Chloride 106, Carbon Dioxide 23.0, A nion Gap 8, BUN 23 H, Creatinine 1.22 H, Estim Creat Clear Calc 41.32, Est GFR (MDRD) Af Amer 56 L, Est GFR (MDRD) Non-Af 47 L, BUN/Creatinine Ratio 18.9, Glucose 151 H, Calcium 8.7, Total Bilirubin 0.30, AST 51 H, ALT 34, Alkaline Phosphatase 135 H, Total Protein 6.9, Albumin 2.3 L, Globulin 4.6 H, Albumin/Globulin Ratio 0.5 L Micro: Microbiology 08/07/21 06:05 Nasal Secretion SARS-CoV-2 Antigen (Rapid) - Final SARS-CoV-2 (COVID 19) Physical Exam Narrative GENERAL: Patient appears ill looking currently on Airvo HEENT: Atraumatic; EYES; Anicteric, Normal Conjunctiva NECK; supple, normal thyroid, RESPIRATORY: Diminished to auscultation CARDIOVASCULAR: Regular S1 S2, GI: soft, normoactive bowel sounds, : No Renal angle tenderness; EXTREMITIES: No edema, no clubbing, MUSCULOSKELETAL: no muscle waisting NEURO: Awake; no lateralizing signs. SKIN: No Rash PSYCH; Flat affect Assessment & Plan Assessment/Plan (1) Pneumonia due to 2019 novel coronavirus: (2) Acute respiratory failure with hypoxia: PLAN: Patient is a 70-year-old lady unvaccinated against COVID-19 presenting with an 8-day history of progressive shortness of breath with associated cough 1. Acute hypoxic respiratory failure ? Secondary to COVID-19 pneumonia admitted to regular nursing floor placed on supplemental oxygen started on Decadron and remdesivir. Patient progress being monitored with daily CBC BMPs as well as D-dimer LDH and CRP -08/08/2021;Patient admitted to regular nursing floor with acute hypoxic respiratory failure secondary to COVID-19. Patient is currently requiring high flow oxygen via Airvo. Patient was offered baricitinib by infectious disease patient declined 2. COVID-19 pneumonia ? Management as described above 3. Chronic kidney disease stage IIIa ? Patient creatinine at baseline. Plan is to monitor closely in view of patient presentation. Patient will be monitored with daily BMPs -Patient creatinine down to 1.22 4. Hypothyroidism ? On levothyroxine did continue 5. Hyperglycemia ? Patient not a known hypertensive order hemoglobin A1c. Also placed on Accu- Cheks before meals and at bedtime in view of patient being on concomitant steroid 6. Essential hypertension ? Did continue with home meds with plan to adjust doses if required 7. DVT prophylaxis ? SC Lovenox dose adjusted for kidney function 8. Elevated D-dimer ? Secondary to COVID-19.Ordered CTA to rule out VTE Charges/Coding Visit Charges Inpatient E&M: 28849 [facility] Hosp L3
[2021-08-08] MEDS: Enoxaparin 30 MG/0.3 ML Syringe SC ×2 (09:09→20:52)
[2021-08-08] MEDS: dexAMETHasone 4 MG Tablet 6 MG PO (09:09)
[2021-08-08] MEDS: Cholecalciferol (VIT D3) 25 MCG TABLET (1,000 UNITS) 50 MCG PO (09:09)
[2021-08-08] MEDS: Ascorbic Acid 500 MG Tablet PO (09:09)
[2021-08-08] MEDS: Levothyroxine 50 MCG Tablet PO (09:09)
[2021-08-08] MEDS: Calcium (Elemental) 500 MG Tablet PO (09:10)
[2021-08-08] MEDS: amLODIPine 5 MG Tablet PO (09:10)
[2021-08-08] MEDS: Lisinopril 20 MG Tablet PO (09:10)
[2021-08-08] MEDS: Dorzolamide 2% 10ml Bottle 1 DRP OPHTHALMIC ×2 (09:10→20:52)
[2021-08-08] MEDS: Magnesium Chloride 64 MG Delay Rel.Tablet 128 MG PO (09:10)
[2021-08-08] MEDS: Vitamin B Comp W-C Capsule 1 CAP PO (09:10)
[2021-08-08] MEDS: Pantoprazole Sodium 40 MG Tablet PO (09:10)
[2021-08-08] MEDS: Timolol 0.5% 5ML OPTH.BTL 1 DRP OPHTHALMIC ×2 (09:11→20:51)
[2021-08-08 09:23] LABS: D-Dimer Quantitative (DVT/PE) 1.34 FEU/ug/m (0.27-0.49)
--- NOTE | 2021-08-08 10:27 | CT_ITS ---
STUDY: CTA CHEST REASON FOR EXAM: Female, 70 years old. Elevated d-dimer. Respiratory failure. Covid. RADIATION DOSAGE (If Supplied By Facility): CTDIvol = ( 18.405 ) mGy, DLP = ( 427.68 ) mGycm TECHNIQUE: The examination was performed with the intravenous administration of IV 100mL Isovue-370. Post-processing of the angiographic images was performed, with multiplanar reformation and 3D reconstruction. Individualized dose optimization techniques were used for this CT. COMPARISON: Comparison is made with prior chest radiograph dated 08/07/2021. FINDINGS: Normal enhancement of the main pulmonary artery and right and left pulmonary arteries. Normal enhancement of the bilateral peripheral pulmonary arteries. There is no demonstrated pulmonary embolism. Normal thoracic aorta and visualized great vessels. There is no demonstrated aortic dissection. Normal heart and pericardium. There are visualized mediastinal lymph nodes, which are within normal size limits, and with normal morphology. Normal hilar regions. Normal visualized trachea and bronchi. The lungs are well expanded. There are diffuse bilateral pulmonary infiltrates involving both lungs as well as both upper and lower lobes. This is worse in the left upper lobe and right lower lobe. Normal pleura. Normal chest wall structures. There are degenerative changes of thoracic spine. There is a faint 1 cm hypodensity in the peripheral medial aspect of the spleen. Moderate-sized hiatal hernia. CT/CTA Chest W/WO Contrast IMPRESSION: No evidence of pulmonary embolism. Diffuse bilateral pulmonary infiltrates worse in the left upper lobe and right lower lobe. Electronically Signed: Aki Salazar MD at 12:04 EST , Service support ,
[2021-08-08] MEDS: traZODone 50 MG Tablet 75 MG PO (20:48)
[2021-08-08] MEDS: Latanoprost 0.005% 1 Bottle 1 DRP EACH EYE (20:51)
[2021-08-08] MEDS: 0.9% Saline Lock 10 ML Syringe IV (20:53)
[2021-08-09] VITALS (22 sets, daily range): BP systolic 134–161; BP diastolic 66–86; PULSE 68–96; RESP 20–24; TEMP 36.6–37.1; O2SAT 78–96
[2021-08-09] MEDS: Acetaminophen 325 MG Tablet 650 MG PO ×3 (01:02→21:15)
[2021-08-09] MEDS: Hydrocortisone 2.5% Crm 1 APPLIC TOPICAL ×2 (01:03→21:34)
[2021-08-09 06:29] LABS: Hematocrit 42.8 % (37-47); Hemoglobin 14.2 g/dL (12.0-15.0); Mean Corp Hgb Conc 33.2 g/dL (32-36); Mean Corpuscular Hgb 28.2 pg (27.0-32.0); Mean Corpuscular Volume 85.1 fL (81-99); Mean Platelet Vol. 10.7 fl (6.2-12.0); Platelet Count 322 K/mm3 (150-450); RBC Distribution Width CV 14.2 % (11.6-14.6); RBC Distribution Width SD 44.2 fl (35.1-43.9); Red Blood Count 5.03 M/mm3 (4.2-5.4); White Blood Count 8.5 K/mm3 (4.4-11.0)
[2021-08-09 06:55] LABS: ALB/GLOB Ratio 0.4 RATIO (0.9-2.4); AST(SGOT) 46 U/L (15-37); Alanine Aminotransfer ALT/SGPT 37 U/L (13-56); Alkaline Phosphatase 125 U/L (45-117); Anion Gap 10 (5-15); BUN 36 mg/dL (7-18); BUN/Creat Ratio 24.3 RATIO (10-20); Calcium,Total 8.6 mg/dL (8.5-10.1); Chloride 104 mmol/L (98-107); Creatinine, Serum 1.48 mg/dL (0.55-1.02); EST Glomerular Filtration Rate 37 mL/min (>60); Est Glom Filt Rate - Afr Amer 45 mL/min (>60); Estimated Creatinine Clearance 34.06 ml/min; Globulin 4.9 g/dL (2.2-4.2); Glucose 170 mg/dL (74-106); Potassium 4.3 mmol/L (3.5-5.1); Protein, Total 6.9 g/dL (6.4-8.2); Sodium Level 137 mmol/L (136-145)
--- NOTE | 2021-08-09 07:57 | PN.HOSP_ITS ---
Subjective Subjective Patient seen still remains on high flow oxygen via Airvo. CT of the chest obtained was negative for PE did show bilateral COVID-pneumonia Objective Data Objective Data Vital Signs: Vital Signs Temp Pulse Resp BP Pulse Ox 98.5 F 87 20 H 157/86 H 94 08/09/21 05:33 08/09/21 05:59 08/09/21 05:33 08/09/21 05:33 08/09/21 05:33 Oxygen Flow Rate (L/min) 60 Oxygen Delivery Method Airvo Weight: 100.7 kg Body Mass Index (BMI) 35.8 Intake & Output: Intake and Output for Last 24 Hours 08/07/21 08/08/21 08/09/21 23:59 23:59 23:59 Intake Total 2250 / 2250 2500 / 2500 Output Total 500 / 500 1150 / 1150 Balance 1750 / 1750 1350 / 1350 Lab / Micro Data Result Diagrams: 08/09/21 05:40 08/09/21 05:40 Labs: Laboratory Results - last 24 hr 08/08/21 08:52: D-Dimer Quant (PE/DVT) 1.34 H* 08/09/21 05:40: WBC 8.5, RBC 5.03, Hgb 14.2, Hct 42.8, MCV 85.1, MCH 28.2, MCHC 33.2, RDW Std Deviation 44.2 H, RDW Coeff of Jaya 14.2, Plt Count 322, MPV 10.7 08/09/21 05:40: Sodium 137, Potassium 4.3, Chloride 104, Carbon Dioxide 23.0, Anion Gap 10, BUN 36 H, Creatinine 1.48 H, Estim Creat Clear Calc 34.06, Est GFR (MDRD) Af Amer 45 L, Est GFR (MDRD) Non-Af 37 L, BUN/Creatinine Ratio 24.3 H, Glucose 170 H, Calcium 8.6, Total Bilirubin 0.30, AST 46 H, ALT 37, Alkaline Phosphatase 125 H, Total Protein 6.9, Albumin 2.0 L, Globulin 4.9 H, Albumin/Globulin Ratio 0.4 L Micro: Microbiology 08/07/21 06:05 Nasal Secretion SARS-CoV-2 Antigen (Rapid) - Final SARS-CoV-2 (COVID 19) Radiography Diagnostic Testing: Radiology Impression Chest CTA 08/08/21 10:27 IMPRESSION: No evidence of pulmonary embolism. Diffuse bilateral pulmonary infiltrates worse in the left upper lobe and right lower lobe. Electronically Signed: Aki Salazar MD at 12:04 EST , Service support , Physical Exam Narrative GENERAL: Patient appears ill looking currently on Airvo HEENT: Atraumatic; EYES; Anicteric, Normal Conjunctiva NECK; supple, normal thyroid, RESPIRATORY: Diminished to auscultation CARDIOVASCULAR: Regular S1 S2, GI: soft, normoactive bowel sounds, : No Renal angle tenderness; EXTREMITIES: No edema, no clubbing, MUSCULOSKELETAL: no muscle waisting NEURO: Awake; no lateralizing signs. SKIN: No Rash PSYCH; Flat affect Assessment & Plan Assessment/Plan (1) Pneumonia due to 2019 novel coronavirus: (2) Acute respiratory failure with hypoxia: PLAN: Patient is a 70-year-old lady unvaccinated against COVID-19 presenting with an 8-day history of progressive shortness of breath with associated cough 1. Acute hypoxic respiratory failure ? Secondary to COVID-19 pneumonia admitted to regular nursing floor placed on supplemental oxygen started on Decadron and remdesivir. Patient progress being monitored with daily CBC BMPs as well as D-dimer LDH and CRP -08/08/2021;Patient admitted to regular nursing floor with acute hypoxic respiratory failure secondary to COVID-19. Patient is currently requiring high flow oxygen via Airvo. Patient was offered baricitinib by infectious disease patient declined 08/09/2021; remains on high flow oxygen via Airvo. CTA obtained did demonstrate No evidence of pulmonary embolism. Diffuse bilateral pulmonary infiltrates worse in the left upper lobe andright lower lobe. 2. COVID-19 pneumonia ? Management as described above 3. Chronic kidney disease stage IIIa ? Patient creatinine at baseline. Plan is to monitor closely in view of patient presentation. Patient will be monitored with daily BMPs -Patient creatinine down to 1.22 4. Hypothyroidism ? On levothyroxine did continue 5. Hyperglycemia ? Patient not a known hypertensive order hemoglobin A1c. Also placed on Accu- Cheks before meals and at bedtime in view of patient being on concomitant steroid 6. Essential hypertension ? Did continue with home meds with plan to adjust doses if required 7. DVT prophylaxis ? SC Lovenox dose adjusted for kidney function 8. Elevated D-dimer ? Secondary to COVID-19.Ordered CTA to rule out VTE Charges/Coding Visit Charges Inpatient E&M: 45739 Subs Hosp L2
[2021-08-09] MEDS: Ascorbic Acid 500 MG Tablet PO (10:29)
[2021-08-09] MEDS: Levothyroxine 50 MCG Tablet PO (10:29)
[2021-08-09] MEDS: Calcium (Elemental) 500 MG Tablet PO (10:29)
[2021-08-09] MEDS: Magnesium Chloride 64 MG Delay Rel.Tablet 128 MG PO (10:30)
[2021-08-09] MEDS: Vitamin B Comp W-C Capsule 1 CAP PO (10:30)
[2021-08-09] MEDS: Pantoprazole Sodium 40 MG Tablet PO (10:30)
[2021-08-09] MEDS: Timolol 0.5% 5ML OPTH.BTL 1 DRP OPHTHALMIC ×2 (10:31→21:18)
[2021-08-09] MEDS: Lisinopril 20 MG Tablet PO (10:31)
[2021-08-09] MEDS: Cholecalciferol (VIT D3) 25 MCG TABLET (1,000 UNITS) 50 MCG PO (10:31)
[2021-08-09] MEDS: 0.9% Saline Lock 10 ML Syringe IV (10:31)
[2021-08-09] MEDS: Dorzolamide 2% 10ml Bottle 1 DRP OPHTHALMIC ×2 (10:32→21:18)
[2021-08-09] MEDS: dexAMETHasone 4 MG Tablet 6 MG PO (10:33)
[2021-08-09] MEDS: Enoxaparin 30 MG/0.3 ML Syringe SC ×2 (10:33→21:15)
[2021-08-09] MEDS: amLODIPine 5 MG Tablet PO (10:33)
--- NOTE | 2021-08-09 13:52 | NURSING ---
attempt to be on N/C 10l high flow unsuccessful-pt maintained 84-88%-pt placed back on airvo per CPS
[2021-08-09] MEDS: traZODone 50 MG Tablet 75 MG PO (21:15)
[2021-08-09] MEDS: Latanoprost 0.005% 1 Bottle 1 DRP EACH EYE (21:18)
[2021-08-10] VITALS (17 sets, daily range): BP systolic 143–164; BP diastolic 84–94; PULSE 64–95; RESP 14–22; TEMP 36.2–36.8; O2SAT 86–94
[2021-08-10] MEDS: Acetaminophen 325 MG Tablet 650 MG PO ×2 (06:01→21:42)
[2021-08-10 06:28] LABS: Hematocrit 44.8 % (37-47); Hemoglobin 14.6 g/dL (12.0-15.0); Mean Corp Hgb Conc 32.6 g/dL (32-36); Mean Corpuscular Hgb 27.8 pg (27.0-32.0); Mean Corpuscular Volume 85.2 fL (81-99); Mean Platelet Vol. 10.2 fl (6.2-12.0); Platelet Count 373 K/mm3 (150-450); RBC Distribution Width SD 43.6 fl (35.1-43.9); Red Blood Count 5.26 M/mm3 (4.2-5.4); White Blood Count 8.6 K/mm3 (4.4-11.0)
[2021-08-10 06:58] LABS: ALB/GLOB Ratio 0.5 RATIO (0.9-2.4); AST(SGOT) 38 U/L (15-37); Alanine Aminotransfer ALT/SGPT 35 U/L (13-56); Albumin, Serum 2.5 g/dL (3.2-5.0); Alkaline Phosphatase 119 U/L (45-117); Anion Gap 7 (5-15); BUN 44 mg/dL (7-18); BUN/Creat Ratio 29.9 RATIO (10-20); Calcium,Total 8.9 mg/dL (8.5-10.1); Chloride 106 mmol/L (98-107); Creatinine, Serum 1.47 mg/dL (0.55-1.02); EST Glomerular Filtration Rate 38 mL/min (>60); Est Glom Filt Rate - Afr Amer 45 mL/min (>60); Estimated Creatinine Clearance 34.29 ml/min; Globulin 4.6 g/dL (2.2-4.2); Glucose 187 mg/dL (74-106); Potassium 4.4 mmol/L (3.5-5.1); Protein, Total 7.1 g/dL (6.4-8.2); Sodium Level 136 mmol/L (136-145)
--- NOTE | 2021-08-10 07:50 | PN.HOSP_ITS ---
Subjective Subjective Patient seen no change in her overall condition. Still remains on high flow oxygen via Airvo Objective Data Objective Data Vital Signs: Vital Signs Temp Pulse Resp BP Pulse Ox 98.2 F 88 22 H 163/88 H 94 08/10/21 05:48 08/10/21 07:41 08/10/21 06:03 08/10/21 05:48 08/10/21 07:41 Oxygen Flow Rate (L/min) 60 Oxygen Delivery Method Airvo Weight: 100.7 kg Body Mass Index (BMI) 35.8 Intake & Output: Intake and Output for Last 24 Hours 08/08/21 08/09/21 08/10/21 23:59 23:59 23:59 Intake Total 2500 / 2500 1600 / 1600 Output Total 1150 / 1150 600 / 600 Balance 1350 / 1350 1000 / 1000 Lab / Micro Data Result Diagrams: 08/10/21 05:55 08/10/21 05:55 Labs: Laboratory Results - last 24 hr 08/10/21 05:55: WBC 8.6, RBC 5.26, Hgb 14.6, Hct 44.8, MCV 85.2, MCH 27.8, MCHC 32.6, RDW Std Deviation 43.6, RDW Coeff of Jaya 14.0, Plt Count 373, MPV 10.2 08/10/21 05:55: Sodium 136, Potassium 4.4, Chloride 106, Carbon Dioxide 23.0, Anion Gap 7, BUN 44 H, Creatinine 1.47 H, Estim Creat Clear Calc 34.29, Est GFR (MDRD) Af Amer 45 L, Est GFR (MDRD) Non-Af 38 L, BUN/Creatinine Ratio 29.9 H, Glucose 187 H, Calcium 8.9, Total Bilirubin 0.50, AST 38 H, ALT 35, Alkaline Phosphatase 119 H, Total Protein 7.1, Albumin 2.5 L, Globulin 4.6 H, Albumin/Globulin Ratio 0.5 L Micro: Microbiology 08/07/21 06:05 Nasal Secretion SARS-CoV-2 Antigen (Rapid) - Final SARS-CoV-2 (COVID 19) Physical Exam Narrative GENERAL: Patient appears ill looking currently on Airvo HEENT: Atraumatic; EYES; Anicteric, Normal Conjunctiva NECK; supple, normal thyroid, RESPIRATORY: Diminished to auscultation CARDIOVASCULAR: Regular S1 S2, GI: soft, normoactive bowel sounds, : No Renal angle tenderness; EXTREMITIES: No edema, no clubbing, MUSCULOSKELETAL: no muscle waisting NEURO: Awake; no lateralizing signs. SKIN: No Rash PSYCH; Flat affect Assessment & Plan Assessment/Plan (1) Pneumonia due to 2019 novel coronavirus: (2) Acute respiratory failure with hypoxia: PLAN: Patient is a 70-year-old lady unvaccinated against COVID-19 presenting with an 8-day history of progressive shortness of breath with associated cough 1. Acute hypoxic respiratory failure ? Secondary to COVID-19 pneumonia admitted to regular nursing floor placed on supplemental oxygen started on Decadron and remdesivir. Patient progress being monitored with daily CBC BMPs as well as D-dimer LDH and CRP -08/08/2021;Patient admitted to regular nursing floor with acute hypoxic respiratory failure secondary to COVID-19. Patient is currently requiring high flow oxygen via Airvo. Patient was offered baricitinib by infectious disease patient declined 08/09/2021; remains on high flow oxygen via Airvo. CTA obtained did demonstrate No evidence of pulmonary embolism. Diffuse bilateral pulmonary infiltrates worse in the left upper lobe andright lower lobe. 08/10/2021; Patient seen no change in her overall condition. Still remains on high flow oxygen via Airvo 2. COVID-19 pneumonia ? Management as described above 3. Chronic kidney disease stage IIIa ? Patient creatinine at baseline. Plan is to monitor closely in view of patient presentation. Patient will be monitored with daily BMPs -Patient creatinine down to 1.22 4. Hypothyroidism ? On levothyroxine did continue 5. Hyperglycemia ? Patient not a known hypertensive order hemoglobin A1c. Also placed on Accu- Cheks before meals and at bedtime in view of patient being on concomitant steroid 6. Essential hypertension ? Did continue with home meds with plan to adjust doses if required 7. DVT prophylaxis ? SC Lovenox dose adjusted for kidney function 8. Elevated D-dimer ? Secondary to COVID-19.Ordered CTA to rule out VTE - study was negative Charges/Coding Visit Charges Inpatient E&M: 21409 Subs Hosp L2
[2021-08-10] MEDS: Vitamin B Comp W-C Capsule 1 CAP PO (10:13)
[2021-08-10] MEDS: dexAMETHasone 4 MG Tablet 6 MG PO (10:14)
[2021-08-10] MEDS: Enoxaparin 30 MG/0.3 ML Syringe SC ×2 (10:15→21:44)
[2021-08-10] MEDS: amLODIPine 5 MG Tablet PO (10:15)
[2021-08-10] MEDS: Calcium (Elemental) 500 MG Tablet PO (10:15)
[2021-08-10] MEDS: Magnesium Chloride 64 MG Delay Rel.Tablet 128 MG PO (10:15)
[2021-08-10] MEDS: Pantoprazole Sodium 40 MG Tablet PO (10:16)
[2021-08-10] MEDS: Levothyroxine 50 MCG Tablet PO (10:17)
[2021-08-10] MEDS: Timolol 0.5% 5ML OPTH.BTL 1 DRP OPHTHALMIC ×2 (10:17→21:45)
[2021-08-10] MEDS: Cholecalciferol (VIT D3) 25 MCG TABLET (1,000 UNITS) 50 MCG PO (10:18)
[2021-08-10] MEDS: Dorzolamide 2% 10ml Bottle 1 DRP OPHTHALMIC ×2 (10:18→21:45)
[2021-08-10] MEDS: Ascorbic Acid 500 MG Tablet PO (10:18)
[2021-08-10] MEDS: Lisinopril 20 MG Tablet PO (10:19)
--- NOTE | 2021-08-10 13:09 | PCM.PN.INT ---
Assessment & Plan Assessment/Plan (1) Acute respiratory failure with hypoxia: (2) Pneumonia due to 2019 novel coronavirus: PLAN: RECOMMENDATIONS: 1. Wean FiO2 to maintain oxygen saturations at or above 90%. 2. Continue prophylactic Lovenox. 3. Continue Decadron to complete 10 days of therapy. 4. Continue remdesivir as ordered. 5. Awake prone positioning was encouraged. 6. Diuretics, as needed, to maintain euvolemic state. IMPRESSIONS: 1. Acute hypoxemic respiratory failure secondary to COVID-19 pneumonia The patient was initially admitted to the hospital on August 07 with worsening dyspnea and cough. Symptom onset was sometime around July 30. CTA chest was negative for PE but did demonstrate bilateral groundglass opacities. The patient was placed on remdesivir, Decadron and prophylactic Lovenox. The patient did ultimately refused baricitinib. She is currently maintaining appropriate oxygen saturations on Airvo heated high flow. Diuretics can be utilized as needed to maintain euvolemic state. Awake prone positioning was encouraged. 2. Obesity/hypertension/hypothyroidism/GERD Complicates care, management, recovery and prognosis. Continue home medications as indicated. This note was generated with [email or web address] dictation software. It may contain incorrect words, spelling, and punctuation that were not noted in checking the note before signing. Subjective Subjective The patient was seen and examined at the bedside this morning. Events from the last 24 hours have been reviewed. The patient is currently afebrile, hemodynamically stable and maintaining appropriate oxygen saturations on Airvo heated high flow. The patient is currently documented to be overall net +3.5 L for the hospitalization. She remains on remdesivir and Decadron. Objective Data Objective Data The patient's most recent lab work, culture data and imaging studies have all been personally reviewed. Rapid coronavirus antigen testing was positive on August 07. Vital Signs: Vital Signs Temp Pulse Resp BP Pulse Ox 98.3 F 83 22 H 153/90 H 93 08/10/21 11:08/10/21 11:08/10/21 11:00 08/10/21 11:08/10/21 11:00 Oxygen Flow Rate (L/min) 60 Oxygen Delivery Method Airvo Weight: 100.7 kg Body Mass Index (BMI) 35.8 Intake & Output: Intake and Output for Last 24 Hours 08/08/21 08/09/2122 23:59 23:59 23:59 Intake Total 2500 / 2500 1600 / 1600 Output Total 1150 / 1150 600 / 600 600 / 600 Balance 1350 / 1350 1000 / 1000 -600 / -600 Lab / Micro Data Attestation: I reviewed the patient's lab results. Result Diagrams: 08/10/21 05:55 08/10/21 05:55 Labs: Laboratory Results - last 24 hr 08/10/21 05:55: WBC 8.6, RBC 5.26, Hgb 14.6, Hct 44.8, MCV 85.2, MCH 27.8, MCHC 32.6, RDW Std Deviation 43.6, RDW Coeff of Jaya 14.0, Plt Count 373, MPV 10.2 08/10/21 05:55: Sodium 136, Potassium 4.4, Chloride 106, Carbon Dioxide 23.0, Anion Gap 7, BUN 44 H, Creatinine 1.47 H, Estim Creat Clear Calc 34.29, Est GFR (MDRD) Af Amer 45 L, Est GFR (MDRD) Non-Af 38 L, BUN/Creatinine Ratio 29.9 H, Glucose 187 H, Calcium 8.9, Total Bilirubin 0.50, AST 38 H, ALT 35, Alkaline Phosphatase 119 H, Total Protein 7.1, Albumin 2.5 L, Globulin 4.6 H, Albumin/Globulin Ratio 0.5 L Micro: Microbiology 08/07/21 06:05 Nasal Secretion SARS-CoV-2 Antigen (Rapid) - Final SARS-CoV-2 (COVID 19) Physical Exam Const alert and no apparent distress Constitutional Narrative: On Airvo General Appearance: cooperative Nutritional Appearance: obese HEENT normocephalic and head/scalp atraumatic Eyes PERRL, EOMs intact bilaterally and conjunctivae normal Neck supple General: trachea midline Chest inspection of chest normal Resp normal respiratory effort Auscultation: diminished lung sounds; Negative for rales, rhonchi or wheezes Cardio regular rate and regular rhythm GI normal to inspection, nondistended, normoactive bowel sounds Extremity no clubbing, cyanosis or edema Skin no rashes or lesions noted Neuro CN's II-XII intact bilaterally, moves all extremities and no focal motor deficits Psych Mood & Affect: flat affect Charges/Coding Visit Charges Inpatient E&M: 47719 Subs Hosp L2
--- NOTE | 2021-08-10 16:04 | NURSING ---
Pt sitting up in chair. remains at 90% on airvo. patient slightly SOB. states she had been up at the window because her had driven by the window. states she feels better now that she is resting in the chair. denies further needs at this time.
--- NOTE | 2021-08-10 17:36 | NURSING ---
Assisted patient to BSC and back to chair. Pt did have some SOB and pulse ox dropped to 84%, but was able to quickly recover to 92% once back into the chair. pt denies further needs at this time.
[2021-08-10] MEDS: Hydrocortisone 2.5% Crm 1 APPLIC TOPICAL (20:14)
[2021-08-10] MEDS: traZODone 50 MG Tablet 75 MG PO (21:43)
[2021-08-10] MEDS: Latanoprost 0.005% 1 Bottle 1 DRP EACH EYE (21:44)
[2021-08-10] MEDS: 0.9% Saline Lock 10 ML Syringe IV (21:45)
[2021-08-11] VITALS (22 sets, daily range): BP systolic 146–179; BP diastolic 80–94; PULSE 70–103; RESP 16–22; TEMP 36.4–36.8; O2SAT 87–96
[2021-08-11] MEDS: hydrALAZINE 20 MG/ML Vial 10 MG IV (05:43)
[2021-08-11] MEDS: 0.9% Saline Lock 10 ML Syringe IV (05:49)
[2021-08-11 06:26] LABS: Hemoglobin 15.1 g/dL (12.0-15.0); Mean Corp Hgb Conc 32.8 g/dL (32-36); Mean Corpuscular Hgb 27.8 pg (27.0-32.0); Mean Corpuscular Volume 84.6 fL (81-99); Platelet Count 415 K/mm3 (150-450); RBC Distribution Width CV 14.1 % (11.6-14.6); RBC Distribution Width SD 43.7 fl (35.1-43.9); Red Blood Count 5.44 M/mm3 (4.2-5.4); White Blood Count 9.8 K/mm3 (4.4-11.0)
[2021-08-11] MEDS: Acetaminophen 325 MG Tablet 650 MG PO ×3 (06:26→21:47)
[2021-08-11] MEDS: Ondansetron 4 MG/2 ML Vial IV (06:28)
[2021-08-11] MEDS: Hydrocortisone 2.5% Crm 1 APPLIC TOPICAL ×2 (06:39→14:19)
[2021-08-11 06:55] LABS: ALB/GLOB Ratio 0.6 RATIO (0.9-2.4); AST(SGOT) 36 U/L (15-37); Alanine Aminotransfer ALT/SGPT 40 U/L (13-56); Albumin, Serum 2.6 g/dL (3.2-5.0); Alkaline Phosphatase 131 U/L (45-117); Anion Gap 6 (5-15); BUN 33 mg/dL (7-18); BUN/Creat Ratio 26.4 RATIO (10-20); Calcium,Total 9.1 mg/dL (8.5-10.1); Chloride 107 mmol/L (98-107); Creatinine, Serum 1.25 mg/dL (0.55-1.02); EST Glomerular Filtration Rate 45 mL/min (>60); Est Glom Filt Rate - Afr Amer 55 mL/min (>60); Estimated Creatinine Clearance 40.32 ml/min; Globulin 4.5 g/dL (2.2-4.2); Glucose 152 mg/dL (74-106); Potassium 4.5 mmol/L (3.5-5.1); Protein, Total 7.1 g/dL (6.4-8.2); Sodium Level 136 mmol/L (136-145)
--- NOTE | 2021-08-11 07:40 | PN.HOSP_ITS ---
Subjective Subjective Patient seen no significant change in her overall condition. Still remains on Airvo with FiO2 of 90% with flow rate of 40 L/min Objective Data Objective Data Vital Signs: Vital Signs Temp Pulse Resp BP Pulse Ox 97.6 F L 90 22 H 149/80 H 96 08/11/21 06:22 08/11/21 06:33 08/11/21 06:33 08/11/21 06:22 08/11/21 07:36 Oxygen Flow Rate (L/min) 40 Oxygen Delivery Method Airvo Weight: 100.7 kg Body Mass Index (BMI) 35.8 Intake & Output: Intake and Output for Last 24 Hours 08/09/21 08/10/21 08/11/21 23:59 23:59 23:59 Intake Total 1600 / 1600 650 / 650 Output Total 600 / 600 600 / 600 1000 / 1000 Balance 1000 / 1000 50 / 50 -1000 / -1000 Lab / Micro Data Result Diagrams: 08/11/21 06:17 08/11/21 06:17 Labs: Laboratory Results - last 24 hr 08/11/21 06:17: WBC 9.8, RBC 5.44 H, Hgb 15.1 H, Hct 46.0, MCV 84.6, MCH 27.8, MCHC 32.8, RDW Std Deviation 43.7, RDW Coeff of Jaya 14.1, Plt Count 415, MPV 10.0 08/11/21 06:17: Sodium 136, Potassium 4.5, Chloride 107, Carbon Dioxide 23.0, Anion Gap 6, BUN 33 H, Creatinine 1.25 H, Estim Creat Clear Calc 40.32, Est GFR (MDRD) Af Amer 55 L, Est GFR (MDRD) Non-Af 45 L, BUN/Creatinine Ratio 26.4 H, Glucose 152 H, Calcium 9.1, Total Bilirubin 0.50, AST 36, ALT 40, Alkaline Phosphatase 131 H, Total Protein 7.1, Albumin 2.6 L, Globulin 4.5 H, Albumin/Globulin Ratio 0.6 L Micro: Microbiology 08/07/21 06:05 Nasal Secretion SARS-CoV-2 Antigen (Rapid) - Final SARS-CoV-2 (COVID 19) Physical Exam Narrative GENERAL: Patient appears ill looking currently on Airvo HEENT: Atraumatic; EYES; Anicteric, Normal Conjunctiva NECK; supple, normal thyroid, RESPIRATORY: Diminished to auscultation CARDIOVASCULAR: Regular S1 S2, GI: soft, normoactive bowel sounds, : No Renal angle tenderness; EXTREMITIES: No edema, no clubbing, MUSCULOSKELETAL: no muscle waisting NEURO: Awake; no lateralizing signs. SKIN: No Rash PSYCH; Flat affect Assessment & Plan Assessment/Plan (1) Pneumonia due to 2019 novel coronavirus: (2) Acute respiratory failure with hypoxia: PLAN: Patient is a 70-year-old lady unvaccinated against COVID-19 presenting with an 8-day history of progressive shortness of breath with associated cough 1. Acute hypoxic respiratory failure ? Secondary to COVID-19 pneumonia admitted to regular nursing floor placed on supplemental oxygen started on Decadron and remdesivir. Patient progress being monitored with daily CBC BMPs as well as D-dimer LDH and CRP -08/08/2021;Patient admitted to regular nursing floor with acute hypoxic respiratory failure secondary to COVID-19. Patient is currently requiring high flow oxygen via Airvo. Patient was offered baricitinib by infectious disease patient declined - 08/09/2021; remains on high flow oxygen via Airvo. CTA obtained did demonstrate No evidence of pulmonary embolism. Diffuse bilateral pulmonary infiltrates worse in the left upper lobe andright lower lobe. -08/10/2021; Patient seen no change in her overall condition. Still remains on high flow oxygen via Airvo -08/11/2021; Patient seen no significant change in her overall condition. Still remains on Airvo with FiO2 of 90% with flow rate of 40 L/min 2. COVID-19 pneumonia ? Management as described above 3. Chronic kidney disease stage IIIa ? Patient creatinine at baseline. Plan is to monitor closely in view of patient presentation. Patient will be monitored with daily BMPs -Patient creatinine down to 1.22 4. Hypothyroidism ? On levothyroxine did continue 5. Hyperglycemia ? Patient not a known hypertensive order hemoglobin A1c. Also placed on Accu- Cheks before meals and at bedtime in view of patient being on concomitant steroid 6. Essential hypertension ? Did continue with home meds with plan to adjust doses if required 7. DVT prophylaxis ? SC Lovenox dose adjusted for kidney function 8. Elevated D-dimer ? Secondary to COVID-19.Ordered CTA to rule out VTE - study was negative Charges/Coding Visit Charges Inpatient E&M: 01818 Subs Hosp L2
[2021-08-11] MEDS: Ascorbic Acid 500 MG Tablet PO (10:19)
[2021-08-11] MEDS: Cholecalciferol (VIT D3) 25 MCG TABLET (1,000 UNITS) 50 MCG PO (10:19)
[2021-08-11] MEDS: dexAMETHasone 4 MG Tablet 6 MG PO (10:19)
[2021-08-11] MEDS: Calcium (Elemental) 500 MG Tablet PO (10:20)
[2021-08-11] MEDS: amLODIPine 5 MG Tablet PO (10:20)
[2021-08-11] MEDS: Levothyroxine 50 MCG Tablet PO (10:20)
[2021-08-11] MEDS: Lisinopril 20 MG Tablet PO (10:20)
[2021-08-11] MEDS: Pantoprazole Sodium 40 MG Tablet PO (10:21)
[2021-08-11] MEDS: Enoxaparin 30 MG/0.3 ML Syringe SC ×2 (10:21→21:51)
[2021-08-11] MEDS: Magnesium Chloride 64 MG Delay Rel.Tablet 128 MG PO (10:21)
[2021-08-11] MEDS: Dorzolamide 2% 10ml Bottle 1 DRP OPHTHALMIC ×2 (10:22→21:56)
[2021-08-11] MEDS: Timolol 0.5% 5ML OPTH.BTL 1 DRP OPHTHALMIC ×2 (10:22→21:57)
[2021-08-11] MEDS: Vitamin B Comp W-C Capsule 1 CAP PO (10:22)
--- NOTE | 2021-08-11 11:51 | PN.CC_ITS ---
Assessment & Plan Assessment/Plan (1) Acute respiratory failure with hypoxia: (2) Pneumonia due to 2019 novel coronavirus: PLAN: RECOMMENDATIONS: 1. Wean FiO2 to maintain oxygen saturations at or above 90%. 2. Continue prophylactic Lovenox. 3. Continue Decadron to complete 10 days of therapy. 4. Continue remdesivir as ordered. 5. Awake prone positioning was encouraged. 6. Diuretics, as needed, to maintain euvolemic state. Will dose today. IMPRESSIONS: 1. Acute hypoxemic respiratory failure secondary to COVID-19 pneumonia The patient was initially admitted to the hospital on August 07 with worsening dyspnea and cough. Symptom onset was sometime around July 30. CTA chest was negative for PE but did demonstrate bilateral groundglass opacities. The patient was placed on remdesivir, Decadron and prophylactic Lovenox. The patient did ultimately refused baricitinib. She is currently maintaining appropriate oxygen saturations on Airvo heated high flow. Diuretics can be utilized as needed to maintain euvolemic state. Awake prone positioning was encouraged. 2. Obesity/hypertension/hypothyroidism/GERD Complicates care, management, recovery and prognosis. Continue home medications as indicated. This note was generated with [employer] dictation software. It may contain incorrect words, spelling, and punctuation that were not noted in checking the note before signing. Subjective Subjective The patient was seen and examined at the bedside this morning. Events from the last 24 hours have been reviewed. The patient is currently afebrile, hemodynamically stable and maintaining appropriate oxygen saturations on Airvo heated high flow. The patient is currently documented to be overall net +3.1 L for the hospitalization. She remains on remdesivir and Decadron. Objective Data Objective Data The patient's most recent lab work, culture data and imaging studies have all been personally reviewed. Rapid coronavirus antigen testing was positive on August 07. Vital Signs: Vital Signs Temp Pulse Resp BP Pulse Ox 98.2 F 80 20 H 147/85 H 95 08/11/21 08:31 08/11/21 08:31 08/11/21 09:14 08/11/21 08:31 08/11/21 11:11 Oxygen Flow Rate (L/min) 40 Oxygen Delivery Method Airvo Weight: 100.7 kg Body Mass Index (BMI) 35.8 Intake & Output: Intake and Output for Last 24 Hours 08/09/21 08/10/21 08/11/21 23:59 23:59 23:59 Intake Total 1600 / 1600 650 / 650 Output Total 600 / 600 600 / 600 1000 / 1000 Balance 1000 / 1000 50 / 50 -1000 / -1000 Lab / Micro Data Attestation: I reviewed the patient's lab results. Result Diagrams: 08/11/21 06:17 08/11/21 06:17 Labs: Laboratory Results - last 24 hr 08/11/21 06:17: WBC 9.8, RBC 5.44 H, Hgb 15.1 H, Hct 46.0, MCV 84.6, MCH 27.8, MCHC 32.8, RDW Std Deviation 43.7, RDW Coeff of Jaya 14.1, Plt Count 415, MPV 10.0 08/11/21 06:17: Sodium 136, Potassium 4.5, Chloride 107, Carbon Dioxide 23.0, Anion Gap 6, BUN 33 H, Creatinine 1.25 H, Estim Creat Clear Calc 40.32, Est GFR (MDRD) Af Amer 55 L, Est GFR (MDRD) Non-Af 45 L, BUN/Creatinine Ratio 26.4 H, Glucose 152 H, Calcium 9.1, Total Bilirubin 0.50, AST 36, ALT 40, Alkaline Phosphatase 131 H, Total Protein 7.1, Albumin 2.6 L, Globulin 4.5 H, Albumin/G lobulin Ratio 0.6 L Micro: Microbiology 08/07/21 06:05 Nasal Secretion SARS-CoV-2 Antigen (Rapid) - Final SARS-CoV-2 (COVID 19) Physical Exam Const alert and no apparent distress Constitutional Narrative: On Airvo General Appearance: cooperative Nutritional Appearance: obese HEENT normocephalic and head/scalp atraumatic Eyes PERRL, EOMs intact bilaterally and conjunctivae normal Neck supple General: trachea midline Chest inspection of chest normal Resp normal respiratory effort Auscultation: rales and diminished lung sounds; Negative for rhonchi or wheezes Cardio regular rate and regular rhythm GI normal to inspection, nondistended, normoactive bowel sounds Extremity no clubbing, cyanosis or edema Skin no rashes or lesions noted Neuro CN's II-XII intact bilaterally, moves all extremities and no focal motor deficits Psych Mood & Affect: flat affect Charges/Coding Visit Charges Inpatient E&M: 87573 Subs Hosp L3
[2021-08-11] MEDS: Furosemide 40 MG/4 ML Vial IV (13:13)
[2021-08-11] MEDS: traZODone 50 MG Tablet 75 MG PO (21:47)
[2021-08-11] MEDS: Latanoprost 0.005% 1 Bottle 1 DRP EACH EYE (21:57)
[2021-08-12] VITALS (19 sets, daily range): BP systolic 129–154; BP diastolic 74–94; PULSE 71–94; RESP 16–24; TEMP 36.2–36.9; O2SAT 90–96
[2021-08-12 06:12] LABS: Hematocrit 45.7 % (37-47); Mean Corp Hgb Conc 32.8 g/dL (32-36); Mean Corpuscular Hgb 27.7 pg (27.0-32.0); Mean Corpuscular Volume 84.5 fL (81-99); Mean Platelet Vol. 9.9 fl (6.2-12.0); Platelet Count 409 K/mm3 (150-450); RBC Distribution Width SD 43.1 fl (35.1-43.9); Red Blood Count 5.41 M/mm3 (4.2-5.4); White Blood Count 7.9 K/mm3 (4.4-11.0)
[2021-08-12 06:47] LABS: ALB/GLOB Ratio 0.5 RATIO (0.9-2.4); AST(SGOT) 32 U/L (15-37); Alanine Aminotransfer ALT/SGPT 42 U/L (13-56); Albumin, Serum 2.5 g/dL (3.2-5.0); Alkaline Phosphatase 110 U/L (45-117); Anion Gap 3 (5-15); BUN 42 mg/dL (7-18); BUN/Creat Ratio 29.6 RATIO (10-20); Calcium,Total 8.8 mg/dL (8.5-10.1); Chloride 103 mmol/L (98-107); Creatinine, Serum 1.42 mg/dL (0.55-1.02); EST Glomerular Filtration Rate 39 mL/min (>60); Est Glom Filt Rate - Afr Amer 47 mL/min (>60); Globulin 4.7 g/dL (2.2-4.2); Glucose 151 mg/dL (74-106); Potassium 4.5 mmol/L (3.5-5.1); Protein, Total 7.2 g/dL (6.4-8.2); Sodium Level 132 mmol/L (136-145)
--- NOTE | 2021-08-12 07:40 | PN.HOSP_ITS ---
Subjective Subjective No change in patient's clinical condition. Patient appears depressed. Objective Data Objective Data Vital Signs: Vital Signs Temp Pulse Resp BP Pulse Ox 97.6 F L 88 24 H 154/89 H 92 08/12/21 04:00 08/12/21 07:30 08/12/21 07:30 08/12/21 04:00 08/12/21 07:30 Oxygen Flow Rate (L/min) 50 Oxygen Delivery Method Airvo Weight: 100.7 kg Body Mass Index (BMI) 35.8 Intake & Output: Intake and Output for Last 24 Hours 08/10/21 08/11/21 08/12/21 23:59 23:59 23:59 Intake Total 650 / 650 2100 / 2100 Output Total 600 / 600 3450 / 3450 Balance 50 / 50 -1350 / -1350 Lab / Micro Data Result Diagrams: 08/12/21 05:56 08/12/21 05:56 Labs: Laboratory Results - last 24 hr 08/12/21 05:56: WBC 7.9, RBC 5.41 H, Hgb 15.0, Hct 45.7, MCV 84.5, MCH 27.7, MCHC 32.8, RDW Std Deviation 43.1, RDW Coeff of Jaya 14.0, Plt Count 409, MPV 9.9 08/12/21 05:56: Sodium 132 L, Potassium 4.5, Chloride 103, Carbon Dioxide 26.0, Anion Gap 3 L, BUN 42 H, Creatinine 1.42 H, Estim Creat Clear Calc 35.50, Est GFR (MDRD) Af Amer 47 L, Est GFR (MDRD) Non-Af 39 L, BUN/Creatinine Ratio 29.6 H , Glucose 151 H, Calcium 8.8, Total Bilirubin 0.70, AST 32, ALT 42, Alkaline Phosphatase 110, Total Protein 7.2, Albumin 2.5 L, Globulin 4.7 H, Albumin/Globulin Ratio 0.5 L Micro: Microbiology 08/07/21 06:05 Nasal Secretion SARS-CoV-2 Antigen (Rapid) - Final SARS-CoV-2 (COVID 19) Physical Exam Narrative GENERAL: Patient appears ill looking currently on Airvo HEENT: Atraumatic; EYES; Anicteric, Normal Conjunctiva NECK; supple, normal thyroid, RESPIRATORY: Diminished to auscultation CARDIOVASCULAR: Regular S1 S2, GI: soft, normoactive bowel sounds, : No Renal angle tenderness; EXTREMITIES: No edema, no clubbing, MUSCULOSKELETAL: no muscle waisting NEURO: Awake; no lateralizing signs. SKIN: No Rash PSYCH; Flat affect Assessment & Plan Assessment/Plan (1) Pneumonia due to 2019 novel coronavirus: (2) Acute respiratory failure with hypoxia: PLAN: Patient is a 70-year-old lady unvaccinated against COVID-19 presenting with an 8-day history of progressive shortness of breath with associated cough 1. Acute hypoxic respiratory failure ? Secondary to COVID-19 pneumonia admitted to regular nursing floor placed on supplemental oxygen started on Decadron and remdesivir. Patient progress being monitored with daily CBC BMPs as well as D-dimer LDH and CRP -08/08/2021;Patient admitted to regular nursing floor with acute hypoxic respiratory failure secondary to COVID-19. Patient is currently requiring high flow oxygen via Airvo. Patient was offered baricitinib by infectious disease patient declined - 08/09/2021; remains on high flow oxygen via Airvo. CTA obtained did demonstrate No evidence of pulmonary embolism. Diffuse bilateral pulmonary infiltrates worse in the left upper lobe andright lower lobe. -08/10/2021; Patient seen no change in her overall condition. Still remains on high flow oxygen via Airvo -08/11/2021; Patient seen no significant change in her overall condition. Still remains on Airvo with FiO2 of 90% with flow rate of 40 L/min 08/12/2021 no change in patient's clinical condition. Patient appears depressed. Patient remains on Airvo with flow rate of 50 L/min. 2. COVID-19 pneumonia ? Management as described above 3. Chronic kidney disease stage IIIa ? Patient creatinine at baseline. Plan is to monitor closely in view of patient presentation. Patient will be monitored with daily BMPs -Patient creatinine down to 1.22 4. Hypothyroidism ? On levothyroxine did continue 5. Hyperglycemia ? Patient not a known hypertensive order hemoglobin A1c. Also placed on Accu- Cheks before meals and at bedtime in view of patient being on concomitant steroid 6. Essential hypertension ? Did continue with home meds with plan to adjust doses if required 7. DVT prophylaxis ? SC Lovenox dose adjusted for kidney function 8. Elevated D-dimer ? Secondary to COVID-19.Ordered CTA to rule out VTE - study was negative Charges/Coding Visit Charges Inpatient E&M: 04364 Subs Hosp L2
[2021-08-12] MEDS: Enoxaparin 30 MG/0.3 ML Syringe SC ×2 (10:14→22:51)
[2021-08-12] MEDS: Calcium (Elemental) 500 MG Tablet PO (10:15)
[2021-08-12] MEDS: dexAMETHasone 4 MG Tablet 6 MG PO (10:15)
[2021-08-12] MEDS: Levothyroxine 50 MCG Tablet PO (10:15)
[2021-08-12] MEDS: Acetaminophen 325 MG Tablet 650 MG PO ×2 (10:15→22:50)
[2021-08-12] MEDS: Vitamin B Comp W-C Capsule 1 CAP PO (10:15)
[2021-08-12] MEDS: Ascorbic Acid 500 MG Tablet PO (10:16)
[2021-08-12] MEDS: Lisinopril 20 MG Tablet PO (10:16)
[2021-08-12] MEDS: Pantoprazole Sodium 40 MG Tablet PO (10:16)
[2021-08-12] MEDS: Timolol 0.5% 5ML OPTH.BTL 1 DRP OPHTHALMIC ×2 (10:16→22:49)
[2021-08-12] MEDS: Cholecalciferol (VIT D3) 25 MCG TABLET (1,000 UNITS) 50 MCG PO (10:16)
[2021-08-12] MEDS: Magnesium Chloride 64 MG Delay Rel.Tablet 128 MG PO (10:16)
[2021-08-12] MEDS: amLODIPine 5 MG Tablet PO (10:16)
[2021-08-12] MEDS: Dorzolamide 2% 10ml Bottle 1 DRP OPHTHALMIC ×2 (10:17→22:48)
--- NOTE | 2021-08-12 14:00 | CPS ---
P.T. in room, pt refused to work with him. R.T. & P.T. tried to explain that even though she isn't feeling well, she needs to still move, work with P.T. or she will get worse but patient ignored R.T.
[2021-08-12] MEDS: Senna/Docusate Sodium 1 Tablet 2 TABLET PO (14:33)
[2021-08-12] MEDS: Latanoprost 0.005% 1 Bottle 1 DRP EACH EYE (22:49)
[2021-08-12] MEDS: traZODone 50 MG Tablet 75 MG PO (23:02)
[2021-08-13] VITALS (16 sets, daily range): BP systolic 145–157; BP diastolic 70–89; PULSE 70–90; RESP 18–32; TEMP 36.2–36.7; O2SAT 90–96
--- NOTE | 2021-08-13 06:28 | PCM.PN.INT ---
Assessment & Plan Assessment/Plan (1) Acute respiratory failure with hypoxia: (2) Pneumonia due to 2019 novel coronavirus: PLAN: RECOMMENDATIONS: 1. Wean FiO2 to maintain oxygen saturations at or above 90%. 2. Continue prophylactic Lovenox. 3. Continue Decadron to complete 10 days of therapy. 4. Continue remdesivir as ordered. 5. Awake prone positioning was encouraged. 6. Diuretics, as needed, to maintain euvolemic state. IMPRESSIONS: 1. Acute hypoxemic respiratory failure secondary to COVID-19 pneumonia The patient was initially admitted to the hospital on August 07 with worsening dyspnea and cough. Symptom onset was sometime around July 30. CTA chest was negative for PE but did demonstrate bilateral groundglass opacities. The patient was placed on remdesivir, Decadron and prophylactic Lovenox. The patient did ultimately refuse baricitinib. She is currently maintaining appropriate oxygen saturations on Airvo heated high flow. Diuretics can be utilized as needed to maintain euvolemic state. Awake prone positioning was encouraged. 2. Obesity/hypertension/hypothyroidism/GERD Complicates care, management, recovery and prognosis. Continue home medications as indicated. This note was generated with [employer] dictation software. It may contain incorrect words, spelling, and punctuation that were not noted in checking the note before signing. Subjective Subjective The patient was seen and examined at the bedside this morning. Events from the last 24 hours have been reviewed. The patient is currently afebrile, hemodynamically stable and maintaining appropriate oxygen saturations on Airvo heated high flow with an FiO2 requirement of 65%. The patient is currently documented to be overall net +2.6 L for the hospitalization. She has completed her treatment course of remdesivir and remains on Decadron and prophylactic Lovenox. Objective Data Objective Data The patient's most recent lab work, culture data and imaging studies have all been personally reviewed. Rapid coronavirus antigen testing was positive on August 07. Vital Signs: Vital Signs Temp Pulse Resp BP Pulse Ox 97.5 F L 71 18 147/85 H 93 08/13/21 04:01 08/13/21 04:53 08/13/21 04:01 08/13/21 04:01 08/13/21 04:01 Oxygen Flow Rate (L/min) 50 Oxygen Delivery Method Airvo Weight: 100.7 kg Body Mass Index (BMI) 35.8 Intake & Output: Intake and Output for Last 24 Hours 08/11/21 08/12/21 08/13/21 23:59 23:59 23:59 Intake Total 2100 / 2100 1300 / 1300 Output Total 3450 / 3450 1150 / 1150 300 / 300 Balance -1350 / -1350 150 / 150 -300 / -300 Lab / Micro Data Attestation: I reviewed the patient's lab results. Result Diagrams: 08/12/21 05:56 08/12/21 05:56 Labs: Laboratory Results - last 24 hr 08/12/21 05:56: Sodium 132 L, Potassium 4.5, Chloride 103, Carbon Dioxide 26.0, Anion Gap 3 L, BUN 42 H, Creatinine 1.42 H, Estim Creat Clear Calc 35.50, Est GFR (MDRD) Af Amer 47 L, Est GFR (MDRD) Non-Af 39 L, BUN/Creatinine Ratio 29.6 H, Glucose 151 H, Calcium 8.8, Total Bilirubin 0.70, AST 32, ALT 42, Alkaline Phosphatase 110, Total Protein 7.2, Albumin 2.5 L, Globulin 4.7 H, Albumin/Globulin Ratio 0.5 L Micro: Microbiology 08/07/21 06:05 Nasal Secretion SARS-CoV-2 Antigen (Rapid) - Final SARS-CoV-2 (COVID 19) Physical Exam Const alert and no apparent distress Constitutional Narrative: On Airvo General Appearance: cooperative Nutritional Appearance: obese HEENT normocephalic, head/scalp atraumatic and moist oral mucous membranes Eyes PERRL, EOMs intact bilaterally and conjunctivae normal Neck supple General: trachea midline Chest inspection of chest normal Resp normal respiratory effort Auscultation: diminished lung sounds; Negative for rales, rhonchi or wheezes Cardio regular rate and regular rhythm GI normal to inspection, nondistended, normoactive bowel sounds Extremity no clubbing, cyanosis or edema Skin no rashes or lesions noted Neuro CN's II-XII intact bilaterally, moves all extremities and no focal motor deficits Psych Mood & Affect: flat affect Charges/Coding Visit Charges Inpatient E&M: 92177 Subs Hosp L2
--- NOTE | 2021-08-13 07:27 | PN.HOSP_ITS ---
Subjective Subjective Patient seen still remains on high flow oxygen Airvo 50 L/min with FiO2 of 83%. Objective Data Objective Data Vital Signs: Vital Signs Temp Pulse Resp BP Pulse Ox 97.5 F L 71 18 147/85 H 93 08/13/21 04:01 08/13/21 04:53 08/13/21 04:01 08/13/21 04:01 08/13/21 04:01 Oxygen Flow Rate (L/min) 50 Oxygen Delivery Method Airvo Weight: 100.7 kg Body Mass Index (BMI) 35.8 Intake & Output: Intake and Output for Last 24 Hours 08/11/21 08/12/21 08/13/21 23:59 23:59 23:59 Intake Total 2100 / 2100 1300 / 1300 Output Total 3450 / 3450 1150 / 1150 300 / 300 Balance -1350 / -1350 150 / 150 -300 / -300 Lab / Micro Data Result Diagrams: 08/13/21 07:25 08/13/21 07:25 Micro: Microbiology 08/07/21 06:05 Nasal Secretion SARS-CoV-2 Antigen (Rapid) - Final SARS-CoV-2 (COVID 19) Physical Exam Narrative GENERAL: Patient appears ill looking currently on Airvo HEENT: Atraumatic; EYES; Anicteric, Normal Conjunctiva NECK; supple, normal thyroid, RESPIRATORY: Diminished to auscultation CARDIOVASCULAR: Regular S1 S2, GI: soft, normoactive bowel sounds, : No Renal angle tenderness; EXTREMITIES: No edema, no clubbing, MUSCULOSKELETAL: no muscle waisting NEURO: Awake; no lateralizing signs. SKIN: No Rash PSYCH; Flat affect Assessment & Plan Assessment/Plan (1) Pneumonia due to 2019 novel coronavirus: (2) Acute respiratory failure with hypoxia: PLAN: Patient is a 70-year-old lady unvaccinated against COVID-19 presenting with an 8-day history of progressive shortness of breath with associated cough 1. Acute hypoxic respiratory failure ? Secondary to COVID-19 pneumonia admitted to regular nursing floor placed on supplemental oxygen started on Decadron and remdesivir. Patient progress being monitored with daily CBC BMPs as well as D-dimer LDH and CRP -08/08/2021;Patient admitted to regular nursing floor with acute hypoxic respiratory failure secondary to COVID-19. Patient is currently requiring high flow oxygen via Airvo. Patient was offered baricitinib by infectious disease patient declined - 08/09/2021; remains on high flow oxygen via Airvo. CTA obtained did demonstrate No evidence of pulmonary embolism. Diffuse bilateral pulmonary infiltrates worse in the left upper lobe andright lower lobe. -08/10/2021; Patient seen no change in her overall condition. Still remains on h igh flow oxygen via Airvo -08/11/2021; Patient seen no significant change in her overall condition. Still remains on Airvo with FiO2 of 90% with flow rate of 40 L/min -08/12/2021 no change in patient's clinical condition. Patient appears depressed. Patient remains on Airvo with flow rate of 50 L/min. -08/13/2021;Patient seen still remains on high flow oxygen Airvo 50 L/min with FiO2 of 83%. 2. COVID-19 pneumonia ? Management as described above 3. Chronic kidney disease stage IIIa ? Patient creatinine at baseline. Plan is to monitor closely in view of patient presentation. Patient will be monitored with daily BMPs -Patient creatinine down to 1.22 4. Hypothyroidism ? On levothyroxine did continue 5. Hyperglycemia ? Patient not a known hypertensive order hemoglobin A1c. Also placed on Accu- Cheks before meals and at bedtime in view of patient being on concomitant steroid 6. Essential hypertension ? Did continue with home meds with plan to adjust doses if required 7. DVT prophylaxis ? SC Lovenox dose adjusted for kidney function 8. Elevated D-dimer ? Secondary to COVID-19.Ordered CTA to rule out VTE - study was negative Charges/Coding Visit Charges Inpatient E&M: 14938 Subs Hosp L2
[2021-08-13] MEDS: Enoxaparin 30 MG/0.3 ML Syringe SC ×2 (08:38→21:50)
[2021-08-13] MEDS: Senna/Docusate Sodium 1 Tablet 2 TABLET PO (08:39)
[2021-08-13] MEDS: Acetaminophen 325 MG Tablet 650 MG PO ×3 (08:39→22:41)
[2021-08-13] MEDS: dexAMETHasone 4 MG Tablet 6 MG PO (08:39)
[2021-08-13] MEDS: Vitamin B Comp W-C Capsule 1 CAP PO (08:39)
[2021-08-13] MEDS: Lisinopril 20 MG Tablet PO (08:39)
[2021-08-13] MEDS: Magnesium Chloride 64 MG Delay Rel.Tablet 128 MG PO (08:40)
[2021-08-13] MEDS: Dorzolamide 2% 10ml Bottle 1 DRP OPHTHALMIC ×2 (08:40→21:50)
[2021-08-13] MEDS: Calcium (Elemental) 500 MG Tablet PO (08:40)
[2021-08-13] MEDS: Levothyroxine 50 MCG Tablet PO (08:40)
[2021-08-13] MEDS: Ascorbic Acid 500 MG Tablet PO (08:40)
[2021-08-13] MEDS: Timolol 0.5% 5ML OPTH.BTL 1 DRP OPHTHALMIC ×2 (08:40→21:50)
[2021-08-13] MEDS: amLODIPine 5 MG Tablet PO (08:40)
[2021-08-13] MEDS: Pantoprazole Sodium 40 MG Tablet PO (08:40)
--- NOTE | 2021-08-13 08:49 | PCS.PANDOC ---
PANDEMIC DOCUMENTATION INITIATED: Date: 03/13/2021 Time: 190
[2021-08-13 08:59] LABS: Absolute Lymphocyte Count 0.84 X10^3/uL (0.83-4.51); Absolute Neutrophil Count 6.4 X10^3/uL (2.0-7.7); Basophil# 0.02 X10^3/uL; Basophil% 0.3 % (0-1); Eosinophil# 0.02 X10^3/uL; Eosinophils% 0.3 % (0-5); Hematocrit 46.3 % (37-47); Lymphocyte # 0.84 X10^3/ul (0.83-4.51); Lymphocyte % 10.5 % (19-41); Mean Corp Hgb Conc 32.4 g/dL (32-36); Mean Corpuscular Hgb 27.7 pg (27.0-32.0); Mean Corpuscular Volume 85.4 fL (81-99); Mean Platelet Vol. 10.4 fl (6.2-12.0); Monocyte# 0.57 X10^3/uL; Monocyte% 7.1 % (0-10); NRBC Flagged by Analyzer 0 % (0-5); Neutrophil # 6.43 X10^3/uL (2.7-7.7); Neutrophil % 80.3 % (47-70); Platelet Count 440 K/mm3 (150-450); RBC Distribution Width CV 13.8 % (11.6-14.6); RBC Distribution Width SD 43.2 fl (35.1-43.9); Red Blood Count 5.42 M/mm3 (4.2-5.4)
[2021-08-13 09:07] LABS: Anion Gap 11 (5-15); BUN 41 mg/dL (7-18); BUN/Creat Ratio 30.6 RATIO (10-20); Chloride 99 mmol/L (98-107); Creatinine, Serum 1.34 mg/dL (0.55-1.02); EST Glomerular Filtration Rate 42 mL/min (>60); Est Glom Filt Rate - Afr Amer 51 mL/min (>60); Estimated Creatinine Clearance 37.62 ml/min; Glucose 137 mg/dL (74-106); Potassium 4.4 mmol/L (3.5-5.1); Sodium Level 136 mmol/L (136-145)
[2021-08-13 09:14] LABS: AST(SGOT) 34 U/L (15-37); Alanine Aminotransfer ALT/SGPT 46 U/L (13-56); Albumin, Serum 2.6 g/dL (3.2-5.0); Alkaline Phosphatase 102 U/L (45-117); Bilirubin, Direct 0.22 mg/dL (0.00-0.30); Globulin 4.5 g/dL (2.2-4.2); Protein, Total 7.1 g/dL (6.4-8.2)
[2021-08-13] MEDS: Cholecalciferol (VIT D3) 25 MCG TABLET (1,000 UNITS) 50 MCG PO (09:26)
--- NOTE | 2021-08-13 10:35 | CPS ---
again explained to pt that she has to start helping herself, using her PEP and I.S., work with therapy & get up into a chair. Pt keeps giving excuses on why she can't do things. I told her that this is the 2nd time today I have had to increase her oxygen and this makes it even more important for her to start helping her self.
[2021-08-13] MEDS: Latanoprost 0.005% 1 Bottle 1 DRP EACH EYE (21:50)
[2021-08-13] MEDS: traZODone 50 MG Tablet 75 MG PO (21:50)
[2021-08-14] VITALS (9 sets, daily range): BP systolic 121–143; BP diastolic 68–81; PULSE 67–87; RESP 16–20; TEMP 36.6–36.8; O2SAT 92–95
[2021-08-14 07:19] LABS: Absolute Lymphocyte Count 0.86 X10^3/uL (0.83-4.51); Absolute Neutrophil Count 5.9 X10^3/uL (2.0-7.7); Basophil# 0.01 X10^3/uL; Basophil% 0.1 % (0-1); Eosinophil# 0.05 X10^3/uL; Eosinophils% 0.7 % (0-5); Hematocrit 43.8 % (37-47); Lymphocyte # 0.86 X10^3/ul (0.83-4.51); Lymphocyte % 11.3 % (19-41); Mean Corpuscular Hgb 27.7 pg (27.0-32.0); Mean Corpuscular Volume 86.6 fL (81-99); Mean Platelet Vol. 10.3 fl (6.2-12.0); Monocyte# 0.66 X10^3/uL; Monocyte% 8.7 % (0-10); NRBC Flagged by Analyzer 0 % (0-5); Neutrophil % 77.6 % (47-70); Platelet Count 434 K/mm3 (150-450); RBC Distribution Width CV 13.6 % (11.6-14.6); RBC Distribution Width SD 43.4 fl (35.1-43.9); Red Blood Count 5.06 M/mm3 (4.2-5.4); White Blood Count 7.6 K/mm3 (4.4-11.0)
[2021-08-14 07:48] LABS: ALB/GLOB Ratio 0.6 RATIO (0.9-2.4); AST(SGOT) 26 U/L (15-37); Alanine Aminotransfer ALT/SGPT 41 U/L (13-56); Albumin, Serum 2.5 g/dL (3.2-5.0); Alkaline Phosphatase 90 U/L (45-117); Anion Gap 8 (5-15); BUN 42 mg/dL (7-18); BUN/Creat Ratio 31.6 RATIO (10-20); Calcium,Total 8.9 mg/dL (8.5-10.1); Chloride 103 mmol/L (98-107); Creatinine, Serum 1.33 mg/dL (0.55-1.02); EST Glomerular Filtration Rate 42 mL/min (>60); Est Glom Filt Rate - Afr Amer 51 mL/min (>60); Globulin 4.4 g/dL (2.2-4.2); Glucose 141 mg/dL (74-106); Potassium 4.5 mmol/L (3.5-5.1); Protein, Total 6.9 g/dL (6.4-8.2); Sodium Level 135 mmol/L (136-145)
--- NOTE | 2021-08-14 08:21 | PN.CC_ITS ---
Assessment & Plan Assessment/Plan (1) Acute respiratory failure with hypoxia: (2) Pneumonia due to 2019 novel coronavirus: PLAN: RECOMMENDATIONS: 1. Wean FiO2 to maintain oxygen saturations at or above 90%. 2. Continue prophylactic Lovenox. 3. Completed Remdesivir. Decadron (08/18/2021) to be completed 4. Could consider BiPAP overnight with sleep to limit atelectasis/derecruitment 5. Awake prone positioning was encouraged. 6. Diuretics, as needed, to maintain euvolemic state. Hold Lasix today IMPRESSIONS: 1. Acute hypoxemic respiratory failure secondary to COVID-19 pneumonia The patient was initially admitted to the hospital on August 07 with worsening dyspnea and cough. Symptom onset was sometime around July 30. CTA chest was negative for PE but did demonstrate bilateral groundglass opacities. The patient was placed on remdesivir, Decadron and prophylactic Lovenox. The patient did ultimately refuse baricitinib. She is currently maintaining appropriate oxygen saturations on Airvo heated high flow. Diuretics can be utilized as needed to maintain euvolemic state. Awake prone positioning was enc ouraged. We will hold on diuretics for now. Possibly challenge tomorrow if creatinine remains stable. Patient is +2 L over the course of the hospitalization. 2. Obesity/hypertension/hypothyroidism/GERD Complicates care, management, recovery and prognosis. Continue home medications as indicated. This note was generated with [employer] dictation software. It may contain incorrect words, spelling, and punctuation that were not noted in checking the note before signing. Subjective Subjective Patient did okay overnight. Patient has remained at maximum Airvo to maintain saturations. Patient subjectively feels slightly improved compared to yesterday. Patient reports it does not hurt as much to breathe. Objective Data Objective Data Vital Signs: Vital Signs Temp Pulse Resp BP Pulse Ox 36.6 C 85 18 139/76 H 93 08/14/21 03:39 08/14/21 07:44 08/14/21 07:44 08/14/21 03:39 08/14/21 07:44 Oxygen Flow Rate (L/min) 60 Oxygen Delivery Method Airvo Weight: 100.7 kg Body Mass Index (BMI) 35.8 Intake & Output: Intake and Output for Last 24 Hours 08/12/21 08/13/21 08/14/21 23:59 23:59 23:59 Intake Total 1300 / 1300 700 / 700 Output Total 1150 / 1150 1200 / 1200 Balance 150 / 150 -500 / -500 Lab / Micro Data Result Diagrams: 08/14/21 06:46 08/14/21 06:46 Labs: Laboratory Results - last 24 hr 08/13/21 07:25: Sodium 136, Potassium 4.4, Chloride 99, Carbon Dioxide 26.0, Anion Gap 11, BUN 41 H, Creatinine 1.34 H, Estim Creat Clear Calc 37.62, Est GFR (MDRD) Af Amer 51 L, Est GFR (MDRD) Non-Af 42 L, BUN/Creatinine Ratio 30.6 H, Glucose 137 H, Calcium 9.0 08/13/21 07:25: WBC 8.0, RBC 5.42 H, Hgb 15.0, Hct 46.3, MCV 85.4, MCH 27.7, MCHC 32.4, RDW Std Deviation 43.2, RDW Coeff of Jaya 13.8, Plt Count 440, MPV 10.4, Immature Gran % (Auto) 1.500 H, Neut % (Auto) 80.3 H, Lymph % (Auto) 10.5 L, [place] % (Auto) 7.1, Eos % (Auto) 0.3, Baso % (Auto) 0.3, Absolute Neuts (auto) 6.4, Absolute Lymphs (auto) 0.84, Nucleated RBC % 0 08/13/21 07:25: Total Bilirubin 0.60, Direct Bilirubin 0.22, AST 34, ALT 46, Alkaline Phosphatase 102, Total Protein 7.1, Albumin 2.6 L, Globulin 4.5 H 08/14/21 06:46: Sodium 135 L, Potassium 4.5, Chloride 103, Carbon Dioxide 24.0, Anion Gap 8, BUN 42 H, Creatinine 1.33 H, Estim Creat Clear Calc 37.90, Est GFR (MDRD) Af Amer 51 L, Est GFR (MDRD) Non-Af 42 L, BUN/Creatinine Ratio 31.6 H, Glucose 141 H, Calcium 8.9, Total Bilirubin 0.60, AST 26, ALT 41, Alkaline Phosphatase 90, Total Protein 6.9, Albumin 2.5 L, Globulin 4.4 H, Albumin/Globulin Ratio 0.6 L 08/14/21 06:46: WBC 7.6, RBC 5.06, Hgb 14.0, Hct 43.8, MCV 86.6, MCH 27.7, MCHC 32.0, RDW Std Deviation 43.4, RDW Coeff of Jaya 13.6, Plt Count 434, MPV 10.3, Immature Gran % (Auto) 1.600 H, Neut % (Auto) 77.6 H, Lymph % (Auto) 11.3 L, [place] % (Auto) 8.7, Eos % (Auto) 0.7, Baso % (Auto) 0.1, Absolute Neuts (auto) 5.9, Absolute Lymphs (auto) 0.86, Nucleated RBC % 0 Micro: Microbiology 08/07/21 06:05 Nasal Secretion SARS-CoV-2 Antigen (Rapid) - Final SARS-CoV-2 (COVID 19) Physical Exam Const alert and no apparent distress Constitutional Narrative: On Airvo General Appearance: cooperative Nutritional Appearance: obese HEENT normocephalic, head/scalp atraumatic and moist oral mucous membranes Eyes PERRL, EOMs intact bilaterally and conjunctivae normal Neck supple General: trachea midline Chest inspection of chest normal Chest: symmetrical chest wall rise; Negative for crepitus Resp normal respiratory effort Auscultation: diminished lung sounds; Negative for rales, rhonchi or wheezes Cardio regular rate and regular rhythm GI normal to inspection, nondistended, normoactive bowel sounds Extremity no clubbing, cyanosis or edema Skin no rashes or lesions noted Neuro CN's II-XII intact bilaterally, moves all extremities and no focal motor deficits Psych Mood & Affect: flat affect Charges/Coding Visit Charges Inpatient E&M: 75951 Subs Hosp L3
[2021-08-14] MEDS: Levothyroxine 50 MCG Tablet PO (09:08)
[2021-08-14] MEDS: Pantoprazole Sodium 40 MG Tablet PO (09:08)
[2021-08-14] MEDS: Vitamin B Comp W-C Capsule 1 CAP PO (09:08)
[2021-08-14] MEDS: Acetaminophen 325 MG Tablet 650 MG PO ×3 (09:08→22:45)
[2021-08-14] MEDS: amLODIPine 5 MG Tablet PO (09:08)
[2021-08-14] MEDS: Calcium (Elemental) 500 MG Tablet PO (09:09)
[2021-08-14] MEDS: Ascorbic Acid 500 MG Tablet PO (09:09)
[2021-08-14] MEDS: Magnesium Chloride 64 MG Delay Rel.Tablet 128 MG PO (09:09)
[2021-08-14] MEDS: Lisinopril 20 MG Tablet PO (09:09)
[2021-08-14] MEDS: Enoxaparin 30 MG/0.3 ML Syringe SC ×2 (09:09→22:46)
[2021-08-14] MEDS: Cholecalciferol (VIT D3) 25 MCG TABLET (1,000 UNITS) 50 MCG PO (09:09)
[2021-08-14] MEDS: dexAMETHasone 4 MG Tablet 6 MG PO (09:09)
[2021-08-14] MEDS: Dorzolamide 2% 10ml Bottle 1 DRP OPHTHALMIC ×2 (09:11→22:48)
[2021-08-14] MEDS: Timolol 0.5% 5ML OPTH.BTL 1 DRP OPHTHALMIC ×2 (09:11→22:47)
--- NOTE | 2021-08-14 11:26 | PCM.PN.HOSP ---
Subjective Subjective Doing, no issues overnight. She is breathing well with the Airvo maintaining oxygen saturations. Objective Data Objective Data Vital Signs: Vital Signs Temp Pulse Resp BP Pulse Ox 98.1 F 83 18 143/70 H 95 08/14/21 09:02 08/14/21 09:02 08/14/21 09:02 08/14/21 09:02 08/14/21 09:02 Oxygen Flow Rate (L/min) 60 Oxygen Delivery Method Airvo Weight: 222 lb 0.088 oz Body Mass Index (BMI) 35.8 Intake & Output: Intake and Output for Last 24 Hours 08/13/21 08/14/21 08/15/21 03:59 03:59 03:59 Intake Total 1300 / 1300 700 / 700 Output Total 1150 / 1150 1200 / 1200 Balance 150 / 150 -500 / -500 Lab / Micro Data Result Diagrams: 08/14/21 06:46 08/14/21 06:46 Labs: Laboratory Results - last 24 hr 08/14/21 06:46: Sodium 135 L, Potassium 4.5, Chloride 103, Carbon Dioxide 24.0, Anion Gap 8, BUN 42 H, Creatinine 1.33 H, Estim Creat Clear Calc 37.90, Est GFR (MDRD) Af Amer 51 L, Est GFR (MDRD) Non-Af 42 L, BUN/Creatinine Ratio 31.6 H, Glucose 141 H, Calcium 8.9, Total Bilirubin 0.60, AST 26, ALT 41, Alkaline Phosphatase 90, Total Protein 6.9, Albumin 2.5 L, Globulin 4.4 H, Albumin/Globulin Ratio 0.6 L 08/14/21 06:46: WBC 7.6, RBC 5.06, Hgb 14.0, Hct 43.8, MCV 86.6, MCH 27.7, MCHC 32.0, RDW Std Deviation 43.4, RDW Coeff of Jaya 13.6, Plt Count 434, MPV 10.3, Immature Gran % (Auto) 1.600 H, Neut % (Auto) 77.6 H, Lymph % (Auto) 11.3 L, [place] % (Auto) 8.7, Eos % (Auto) 0.7, Baso % (Auto) 0.1, Absolute Neuts (auto) 5.9, Absolute Lymphs (auto) 0.86, Nucleated RBC % 0 Micro: Microbiology 08/07/21 06:05 Nasal Secretion SARS-CoV-2 Antigen (Rapid) - Final SARS-CoV-2 (COVID 19) Physical Exam Const alert, oriented x3 and no apparent distress General Appearance: cooperative HEENT normocephalic and moist oral mucous membranes Eyes PERRL, EOMs intact bilaterally and conjunctivae normal Neck supple and no JVD Resp normal respiratory effort, no retractions and no use of accessory muscles Auscultation: diminished lung sounds; Negative for crackles, rales, rhonchi or wheezes Cardio regular rate, regular rhythm, S1 normal heart sound, S2 normal heart sound and no murmurs GI soft to palpation, non-tender and non-distended; Negative for hepatosplenomegaly Extremity no clubbing, cyanosis or edema Skin no rashes or lesions noted Neuro no focal motor deficits and no sensory deficits noted Psych affect normal Appearance: appropriate Assessment & Plan Assessment/Plan (1) Pneumonia due to 2019 novel coronavirus: (2) Acute respiratory failure with hypoxia: PLAN: 1. Acute hypoxic respiratory failure due to COVID-19 pneumonia/elevated D-dimer ? Secondary to COVID-19 pneumonia admitted to regular nursing floor placed on supplemental oxygen started on Decadron and remdesivir. Delete that ? D-dimer was elevated, CTA of the chest was for PE -08/08/2021;Patient admitted to regular nursing floor with acute hypoxic respiratory failure secondary to COVID-19. Patient is currently requiring high flow oxygen via Airvo. Patient was offered baricitinib by infectious disease patient declined - 08/09/2021; remains on high flow oxygen via Airvo. CTA obtained did demonstrate No evidence of pulmonary embolism. Diffuse bilateral pulmonary infiltrates worse in the left upper lobe andright lower lobe. -08/10/2021; Patient seen no change in her overall condition. Still remains on high flow oxygen via Airvo -08/11/2021; Patient seen no significant change in her overall condition. Still remains on Airvo with FiO2 of 90% with flow rate of 40 L/min -08/12/2021 no change in patient's clinical condition. Patient appears depressed. Patient remains on Airvo with flow rate of 50 L/min. -08/13/2021;Patient seen still remains on high flow oxygen Airvo 50 L/min with FiO2 of 83%. ?08/14/2021: Continue with air Vo. She may benefit from BiPAP overnight 2. Chronic kidney disease stage IIIa ? Patient creatinine at baseline. Plan is to monitor closely in view of patient presentation. Patient will be monitored with daily BMPs -Patient creatinine down to 1.22 3. Hypothyroidism ? On levothyroxine did continue 4. Hyperglycemia ? Patient not a known hypertensive order hemoglobin A1c. Also placed on Accu-Cheks before meals and at bedtime in view of patient being on concomitant steroid 5. Essential hypertension ? Did continue with home meds with plan to adjust doses if required DVT: Lovenox Charges/Coding Visit Charges Inpatient E&M: 93413 Subs Hosp L2
[2021-08-14] MEDS: traZODone 50 MG Tablet 75 MG PO (22:46)
[2021-08-14] MEDS: Latanoprost 0.005% 1 Bottle 1 DRP EACH EYE (22:50)
[2021-08-15] VITALS (11 sets, daily range): BP systolic 119–148; BP diastolic 36–74; PULSE 63–90; RESP 18–24; TEMP 36.3–37.2; O2SAT 89–95
[2021-08-15 06:20] LABS: Absolute Lymphocyte Count 0.74 X10^3/uL (0.83-4.51); Absolute Neutrophil Count 5.6 X10^3/uL (2.0-7.7); Basophil# 0.02 X10^3/uL; Basophil% 0.3 % (0-1); Eosinophil# 0.03 X10^3/uL; Eosinophils% 0.4 % (0-5); Hematocrit 42.4 % (37-47); Hemoglobin 13.6 g/dL (12.0-15.0); Lymphocyte # 0.74 X10^3/ul (0.83-4.51); Lymphocyte % 10.3 % (19-41); Mean Corp Hgb Conc 32.1 g/dL (32-36); Mean Corpuscular Hgb 28.1 pg (27.0-32.0); Mean Corpuscular Volume 87.6 fL (81-99); Mean Platelet Vol. 10.9 fl (6.2-12.0); Monocyte# 0.67 X10^3/uL; Monocyte% 9.3 % (0-10); NRBC Flagged by Analyzer 0 % (0-5); Neutrophil # 5.62 X10^3/uL (2.7-7.7); Neutrophil % 77.9 % (47-70); Platelet Count 429 K/mm3 (150-450); RBC Distribution Width CV 13.7 % (11.6-14.6); RBC Distribution Width SD 44.3 fl (35.1-43.9); Red Blood Count 4.84 M/mm3 (4.2-5.4); White Blood Count 7.2 K/mm3 (4.4-11.0)
[2021-08-15 06:44] LABS: ALB/GLOB Ratio 0.6 RATIO (0.9-2.4); AST(SGOT) 19 U/L (15-37); Alanine Aminotransfer ALT/SGPT 33 U/L (13-56); Albumin, Serum 2.5 g/dL (3.2-5.0); Alkaline Phosphatase 84 U/L (45-117); Anion Gap 6 (5-15); BUN 46 mg/dL (7-18); BUN/Creat Ratio 33.8 RATIO (10-20); Chloride 102 mmol/L (98-107); Creatinine, Serum 1.36 mg/dL (0.55-1.02); EST Glomerular Filtration Rate 41 mL/min (>60); Est Glom Filt Rate - Afr Amer 50 mL/min (>60); Estimated Creatinine Clearance 37.06 ml/min; Globulin 4.2 g/dL (2.2-4.2); Glucose 158 mg/dL (74-106); Potassium 4.9 mmol/L (3.5-5.1); Protein, Total 6.7 g/dL (6.4-8.2); Sodium Level 133 mmol/L (136-145)
[2021-08-15] MEDS: 0.9% Saline Lock 10 ML Syringe IV ×2 (08:49→21:12)
[2021-08-15] MEDS: Enoxaparin 30 MG/0.3 ML Syringe SC ×2 (08:49→21:09)
[2021-08-15] MEDS: Furosemide 40 MG/4 ML Vial IV (08:50)
[2021-08-15] MEDS: Ascorbic Acid 500 MG Tablet PO (08:51)
[2021-08-15] MEDS: Calcium (Elemental) 500 MG Tablet PO (08:51)
[2021-08-15] MEDS: amLODIPine 5 MG Tablet PO (08:51)
[2021-08-15] MEDS: Vitamin B Comp W-C Capsule 1 CAP PO (08:51)
[2021-08-15] MEDS: Pantoprazole Sodium 40 MG Tablet PO (08:51)
[2021-08-15] MEDS: Levothyroxine 50 MCG Tablet PO (08:51)
[2021-08-15] MEDS: Magnesium Chloride 64 MG Delay Rel.Tablet 128 MG PO (08:52)
[2021-08-15] MEDS: dexAMETHasone 4 MG Tablet 6 MG PO (08:52)
[2021-08-15] MEDS: Lisinopril 20 MG Tablet PO (08:52)
[2021-08-15] MEDS: Cholecalciferol (VIT D3) 25 MCG TABLET (1,000 UNITS) 50 MCG PO (08:52)
[2021-08-15] MEDS: Dorzolamide 2% 10ml Bottle 1 DRP OPHTHALMIC ×2 (08:53→21:07)
[2021-08-15] MEDS: Timolol 0.5% 5ML OPTH.BTL 1 DRP OPHTHALMIC ×2 (08:53→21:10)
[2021-08-15] MEDS: Menthol/Lanolin/Calamine/Znox 113 GM Tube 1 APPLIC TOPICAL ×2 (08:56→21:07)
[2021-08-15] MEDS: Senna/Docusate Sodium 1 Tablet 2 TABLET PO ×2 (08:59→21:08)
[2021-08-15] MEDS: Acetaminophen 325 MG Tablet 650 MG PO ×3 (08:59→21:11)
--- NOTE | 2021-08-15 12:35 | PCM.PN.INT ---
Assessment & Plan Assessment/Plan (1) Acute respiratory failure with hypoxia: (2) Pneumonia due to 2019 novel coronavirus: PLAN: RECOMMENDATIONS: 1. Wean FiO2 to maintain oxygen saturations at or above 90%. 2. Continue prophylactic Lovenox. 3. Completed Remdesivir. Decadron (08/18/2021) to be completed 4. Could consider AVAPS with 450 cc targeted tidal volume overnight with sleep to limit atelectasis/derecruitment 5. Awake prone positioning was encouraged. 6. Diuretics, as needed, to maintain euvolemic state. Hold Lasix today IMPRESSIONS: 1. Acute hypoxemic respiratory failure secondary to COVID-19 pneumonia The patient was initially admitted to the hospital on August 07 with worsening dyspnea and cough. Symptom onset was sometime around July 30. CTA chest was negative for PE but did demonstrate bilateral groundglass opacities. The patient was placed on remdesivir, Decadron and prophylactic Lovenox. The patient did ultimately refuse baricitinib. She is currently maintaining appropriate oxygen saturations on Airvo heated high flow. Diuretics can be utilized as needed to maintain euvolemic state. Awake prone positioning was encouraged. We will challenge with diuretics today given stable creatinine. Patient is +2 L over the course of the hospitalization. 2. Obesity/hypertension/hypothyroidism/GERD Complicates care, management, recovery and prognosis. Continue home medications as indicated. This note was generated with [employer] dictation software. It may contain incorrect words, spelling, and punctuation that were not noted in checking the note before signing. Subjective Subjective Patient did okay overnight. Patient continues to report feeling subjectively improved compared to previous. Patient is not reporting any chest pain. Patient has had a cough, but does not evaluate color. Patient did have some hypoxia overnight when CPAP was suggested, but never initiated Objective Data Objective Data Vital Signs: Vital Signs Temp Pulse Resp BP Pulse Ox 37.2 C 70 18 148/73 H 94 08/15/21 08:40 08/15/21 10:52 08/15/21 10:52 08/15/21 08:40 08/15/21 10:52 Oxygen Flow Rate (L/min) 60 Oxygen Delivery Method Airvo Weight: 100.7 kg Body Mass Index (BMI) 35.8 Intake & Output: Intake and Output for Last 24 Hours 08/13/21 08/14/21 08/15/21 23:59 23:59 23:59 Intake Total 700 / 700 120 / 120 Output Total 1200 / 1200 350 / 350 Balance -500 / -500 -230 / -230 Lab / Micro Data Result Diagrams: 08/15/21 05:06 08/15/21 05:06 Labs: Laboratory Results - last 24 hr 08/15/21 05:06: Sodium 133 L, Potassium 4.9, Chloride 102, Carbon Dioxide 25.0, Anion Gap 6, BUN 46 H, Creatinine 1.36 H, Estim Creat Clear Calc 37.06, Est GFR (MDRD) Af Amer 50 L, Est GFR (MDRD) Non-Af 41 L, BUN/Creatinine Ratio 33.8 H, Glucose 158 H, Calcium 9.0, Total Bilirubin 0.60, AST 19, ALT 33, Alkaline Phosphatase 84, Total Protein 6.7, Albumin 2.5 L, Globulin 4.2, Albumin/Globulin Ratio 0.6 L 08/15/21 05:06: WBC 7.2, RBC 4.84, Hgb 13.6, Hct 42.4, MCV 87.6, MCH 28.1, MCHC 32.1, RDW Std Deviation 44.3 H, RDW Coeff of Jaya 13.7, Plt Count 429, MPV 10.9, Immature Gran % (Auto) 1.800 H, Neut % (Auto) 77.9 H, Lymph % (Auto) 10.3 L, [place] % (Auto) 9.3, Eos % (Auto) 0.4, Baso % (Auto) 0.3, Absolute Neuts (auto) 5.6, Absolute Lymphs (auto) 0.74 L, Nucleated RBC % 0 Micro: Microbiology 08/07/21 06:05 Nasal Secretion SARS-CoV-2 Antigen (Rapid) - Final SARS-CoV-2 (COVID 19) Physical Exam Const alert and no apparent distress Constitutional Narrative: On Airvo General Appearance: cooperative Nutritional Appearance: obese HEENT normocephalic, head/scalp atraumatic and moist oral mucous membranes Eyes PERRL, EOMs intact bilaterally and conjunctivae normal Neck supple General: trachea midline Chest inspection of chest normal Chest: symmetrical chest wall rise; Negative for crepitus Resp normal respiratory effort Auscultation: diminished lung sounds; Negative for rales, rhonchi or wheezes Cardio regular rate and regular rhythm GI normal to inspection, nondistended, normoactive bowel sounds Extremity no clubbing, cyanosis or edema Skin no rashes or lesions noted Neuro CN's II-XII intact bilaterally, moves all extremities and no focal motor deficits Psych Mood & Affect: flat affect Charges/Coding Visit Charges Inpatient E&M: 80800 Subs Hosp L3
--- NOTE | 2021-08-15 13:21 | PN.HOSP_ITS ---
Subjective Subjective Doing well, feels about the same as yesterday. She is down on her FiO2 about 80% and still satting well Objective Data Objective Data Vital Signs: Vital Signs Temp Pulse Resp BP Pulse Ox 98.9 F 90 18 148/73 H 93 08/15/21 08:40 08/15/21 13:09 08/15/21 10:52 08/15/21 08:40 08/15/21 13:09 Oxygen Flow Rate (L/min) 60 Oxygen Delivery Method Airvo Weight: 222 lb 0.088 oz Body Mass Index (BMI) 35.8 Intake & Output: Intake and Output for Last 24 Hours 08/14/21 08/15/21 08/16/21 03:59 03:59 03:59 Intake Total 700 / 700 120 / 120 Output Total 1200 / 1200 350 / 350 Balance -500 / -500 -230 / -230 Lab / Micro Data Result Diagrams: 08/15/21 05:06 08/15/21 05:06 Labs: Laboratory Results - last 24 hr 08/15/21 05:06: Sodium 133 L, Potassium 4.9, Chloride 102, Carbon Dioxide 25.0, Anion Gap 6, BUN 46 H, Creatinine 1.36 H, Estim Creat Clear Calc 37.06, Est GFR (MDRD) Af Amer 50 L, Est GFR (MDRD) Non-Af 41 L, BUN/Creatinine Ratio 33.8 H, Glucose 158 H, Calcium 9.0, Total Bilirubin 0.60, AST 19, ALT 33, Alkaline Phosphatase 84, Total Protein 6.7, Albumin 2.5 L, Globulin 4.2, Albumin/Globulin Ratio 0.6 L 08/15/21 05:06: WBC 7.2, RBC 4.84, Hgb 13.6, Hct 42.4, MCV 87.6, MCH 28.1, MCHC 32.1, RDW Std Deviation 44.3 H, RDW Coeff of Jaya 13.7, Plt Count 429, MPV 10.9, Immature Gran % (Auto) 1.800 H, Neut % (Auto) 77.9 H, Lymph % (Auto) 10.3 L, [place] % (Auto) 9.3, Eos % (Auto) 0.4, Baso % (Auto) 0.3, Absolute Neuts (auto) 5.6, Absolute Lymphs (auto) 0.74 L, Nucleated RBC % 0 Micro: Microbiology 08/07/21 06:05 Nasal Secretion SARS-CoV-2 Antigen (Rapid) - Final SARS-CoV-2 (COVID 19) Physical Exam Narrative Const alert, oriented x3 and no apparent distress General Appearance: cooperative HEENT normocephalic and moist oral mucous membranes Eyes PERRL, EOMs intact bilaterally and conjunctivae normal Neck supple and no JVD Resp normal respiratory effort, no retractions and no use of accessory muscles Auscultation: diminished lung sounds; Negative for crackles, rales, rhonchi or wheezes Cardio regular rate, regular rhythm, S1 normal heart sound, S2 normal heart sound and no murmurs GI soft to palpation, non-tender and non-distended; Negative for hepatosplenomegaly Extremity no clubbing, cyanosis or edema Skin no rashes or lesions noted Neuro no focal motor deficits and no sensory deficits noted Psych affect normal Appearance: appropriate Assessment & Plan Assessment/Plan (1) Pneumonia due to 2019 novel coronavirus: (2) Acute respiratory failure with hypoxia: PLAN: 1. Acute hypoxic respiratory failure due to COVID-19 pneumonia/elevated D-dimer ? Secondary to COVID-19 pneumonia admitted to regular nursing floor placed on supplemental oxygen started on Decadron and remdesivir. Delete that ? D-dimer was elevated, CTA of the chest was for PE -08/08/2021;Patient admitted to regular nursing floor with acute hypoxic respiratory failure secondary to COVID-19. Patient is currently requiring high flow oxygen via Airvo. Patient was offered baricitinib by infectious disease patient declined - 08/09/2021; remains on high flow oxygen via Airvo. CTA obtained did demo nstrate No evidence of pulmonary embolism. Diffuse bilateral pulmonary infiltrates worse in the left upper lobe andright lower lobe. -08/10/2021; Patient seen no change in her overall condition. Still remains on high flow oxygen via Airvo -08/11/2021; Patient seen no significant change in her overall condition. Still remains on Airvo with FiO2 of 90% with flow rate of 40 L/min -08/12/2021 no change in patient's clinical condition. Patient appears depressed. Patient remains on Airvo with flow rate of 50 L/min. -08/13/2021;Patient seen still remains on high flow oxygen Airvo 50 L/min with FiO2 of 83%. ?08/14/2021: Continue with air Vo. She may benefit from BiPAP overnight -08/15/2021: We will recommend BiPAP overnight to maintain oxygenation and improvement. FiO2 is coming down 2. Chronic kidney disease stage IIIa ? Patient creatinine at baseline. Plan is to monitor closely in view of patient presentation. Patient will be monitored with daily BMPs 3. Hypothyroidism ? On levothyroxine did continue 4. Hyperglycemia ? Patient not a known diabetic, order hemoglobin A1c. Also placed on Accu-Cheks before meals and at bedtime in view of patient being on concomitant steroid 5. Essential hypertension ? Did continue with home meds with plan to adjust doses if required DVT: Lovenox Charges/Coding Visit Charges Inpatient E&M: 71906 Subs Hosp L2
--- NOTE | 2021-08-15 16:48 | NURSING ---
Pt up in chair. remains at 96% on airvo. denies needs at this time.
--- NOTE | 2021-08-15 17:34 | NURSING ---
Pt sitting up in bed eating dinner. denies pain or needs at this time.
--- NOTE | 2021-08-15 18:36 | NURSING ---
Pt had been up to the [facility]. pulse ox dropped to 85% on airvo. once patient was back to bed, pulse ox returned to 98%. pt denies further needs at this time.
[2021-08-15] MEDS: Latanoprost 0.005% 1 Bottle 1 DRP EACH EYE (21:07)
[2021-08-15] MEDS: traZODone 50 MG Tablet 75 MG PO (21:08)
[2021-08-16] VITALS (9 sets, daily range): BP systolic 101–133; BP diastolic 50–74; PULSE 67–87; RESP 18–22; TEMP 36.5–36.7; O2SAT 90–96
[2021-08-16 05:38] LABS: Absolute Neutrophil Count 6.9 X10^3/uL (2.0-7.7); Basophil# 0.02 X10^3/uL; Basophil% 0.2 % (0-1); Eosinophil# 0.06 X10^3/uL; Eosinophils% 0.7 % (0-5); Hematocrit 41.3 % (37-47); Hemoglobin 13.4 g/dL (12.0-15.0); Lymphocyte % 12.2 % (19-41); Mean Corp Hgb Conc 32.4 g/dL (32-36); Mean Corpuscular Hgb 27.9 pg (27.0-32.0); Mean Platelet Vol. 10.7 fl (6.2-12.0); Monocyte# 0.84 X10^3/uL; Monocyte% 9.3 % (0-10); NRBC Flagged by Analyzer 0 % (0-5); Neutrophil # 6.85 X10^3/uL (2.7-7.7); Neutrophil % 75.6 % (47-70); Platelet Count 446 K/mm3 (150-450); RBC Distribution Width CV 13.7 % (11.6-14.6); RBC Distribution Width SD 42.9 fl (35.1-43.9); White Blood Count 9.1 K/mm3 (4.4-11.0)
[2021-08-16 05:58] LABS: ALB/GLOB Ratio 0.6 RATIO (0.9-2.4); AST(SGOT) 17 U/L (15-37); Alanine Aminotransfer ALT/SGPT 34 U/L (13-56); Albumin, Serum 2.5 g/dL (3.2-5.0); Alkaline Phosphatase 79 U/L (45-117); Anion Gap 8 (5-15); BUN 51 mg/dL (7-18); BUN/Creat Ratio 34.2 RATIO (10-20); Calcium,Total 8.7 mg/dL (8.5-10.1); Chloride 100 mmol/L (98-107); Creatinine, Serum 1.49 mg/dL (0.55-1.02); EST Glomerular Filtration Rate 37 mL/min (>60); Est Glom Filt Rate - Afr Amer 45 mL/min (>60); Estimated Creatinine Clearance 33.83 ml/min; Globulin 4.1 g/dL (2.2-4.2); Glucose 126 mg/dL (74-106); Potassium 4.9 mmol/L (3.5-5.1); Protein, Total 6.6 g/dL (6.4-8.2); Sodium Level 134 mmol/L (136-145)
--- NOTE | 2021-08-16 09:30 | PCM.PN.HOSP ---
Subjective Subjective Doing well today, feels much better today. Her FiO2 is down into the 70s so she is making progress albeit slowly Objective Data Objective Data Vital Signs: Vital Signs Temp Pulse Resp BP Pulse Ox 97.7 F L 67 20 H 122/66 H 92 08/16/21 03:41 08/16/21 07:54 08/16/21 07:54 08/16/21 03:41 08/16/21 07:54 Oxygen Flow Rate (L/min) 55 Oxygen Delivery Method Airvo Weight: 222 lb 0.088 oz Body Mass Index (BMI) 35.8 Intake & Output: Intake and Output for Last 24 Hours 08/15/21 08/16/21 08/17/21 03:59 03:59 03:59 Intake Total 120 / 120 120 / 120 Output Total 350 / 350 600 / 600 Balance -230 / -230 -480 / -480 Lab / Micro Data Result Diagrams: 08/16/21 05:05 08/16/21 05:05 Labs: Laboratory Results - last 24 hr 08/16/21 05:05: Sodium 134 L, Potassium 4.9, Chloride 100, Carbon Dioxide 26.0, Anion Gap 8, BUN 51 H, Creatinine 1.49 H, Estim Creat Clear Calc 33.83, Est GFR (MDRD) Af Amer 45 L, Est GFR (MDRD) Non-Af 37 L, BUN/Creatinine Ratio 34.2 H, Glucose 126 H, Calcium 8.7, Total Bilirubin 0.50, AST 17, ALT 34, Alkaline Phosphatase 79, Total Protein 6.6, Albumin 2.5 L, Globulin 4.1, Albumin/Globulin Ratio 0.6 L 08/16/21 05:05: WBC 9.1, RBC 4.80, Hgb 13.4, Hct 41.3, MCV 86.0, MCH 27.9, MCHC 32.4, RDW Std Deviation 42.9, RDW Coeff of Jaya 13.7, Plt Count 446, MPV 10.7, Immature Gran % (Auto) 2.000 H, Neut % (Auto) 75.6 H, Lymph % (Auto) 12.2 L, [place] % (Auto) 9.3, Eos % (Auto) 0.7, Baso % (Auto) 0.2, Absolute Neuts (auto) 6.9, Absolute Lymphs (auto) 1.10, Nucleated RBC % 0 Micro: Microbiology 08/07/21 06:05 Nasal Secretion SARS-CoV-2 Antigen (Rapid) - Final SARS-CoV-2 (COVID 19) Physical Exam Narrative Const alert, oriented x3 and no apparent distress General Appearance: cooperative HEENT normocephalic and moist oral mucous membranes Eyes PERRL, EOMs intact bilaterally and conjunctivae normal Neck supple and no JVD Resp normal respiratory effort, no retractions and no use of accessory muscles Auscultation: diminished lung sounds; Negative for crackles, rales, rhonchi or wheezes Cardio regular rate, regular rhythm, S1 normal heart sound, S2 normal heart sound and no murmurs GI soft to palpation, non-tender and non-distended; Negative for hepatosplenomegaly Extremity no clubbing, cyanosis or edema Skin no rashes or lesions noted Neuro no focal motor deficits and no sensory deficits noted Psych affect normal Appearance: appropriate Assessment & Plan Assessment/Plan (1) Pneumonia due to 2019 novel coronavirus: (2) Acute respiratory failure with hypoxia: PLAN: 1. Acute hypoxic respiratory failure due to COVID-19 pneumonia/elevated D-dimer ? Secondary to COVID-19 pneumonia admitted to regular nursing floor placed on supplemental oxygen started on Decadron and remdesivir. Delete that ? D-dimer was elevated, CTA of the chest was for PE -08/08/2021;Patient admitted to regular nursing floor with acute hypoxic respiratory failure secondary to COVID-19. Patient is currently requiring high flow oxygen via Airvo. Patient was offered baricitinib by infectious disease patient declined - 08/09/2021; remains on high flow oxygen via Airvo. CTA obtained did demonstrate No evidence of pulmonary embolism. Diffuse bilateral pulmonary infiltrates worse in the left upper lobe andright lower lobe. -08/10/2021; Patient seen no change in her overall condition. Still remains on high flow oxygen via Airvo -08/11/2021; Patient seen no significant change in her overall condition. Still remains on Airvo with FiO2 of 90% with flow rate of 40 L/min -08/12/2021 no change in patient's clinical condition. Patient appears depressed. Patient remains on Airvo with flow rate of 50 L/min. -08/13/2021;Patient seen still remains on high flow oxygen Airvo 50 L/min with FiO2 of 83%. ?08/14/2021: Continue with air Vo. She may benefit from BiPAP overnight -08/15/2021: We will recommend BiPAP overnight to maintain oxygenation and improvement. FiO2 is coming down ? 08/16/2021: Continue with air Vo, she is slowly improving. 2. Chronic kidney disease stage IIIa ? Patient creatinine at baseline. Plan is to monitor closely in view of patient presentation. Patient will be monitored with daily BMPs ? Creatinine bumped a little bit today we will continue to monitor 3. Hypothyroidism ? On levothyroxine did continue 4. Hyperglycemia ? Patient not a known diabetic, order hemoglobin A1c. Also placed on Accu-Cheks before meals and at bedtime in view of patient being on concomitant steroid 5. Essential hypertension ? Did continue with home meds with plan to adjust doses if required DVT: Lovenox Charges/Coding Visit Charges Inpatient E&M: 86597 Subs Hosp L2
[2021-08-16] MEDS: Vitamin B Comp W-C Capsule 1 CAP PO (10:27)
[2021-08-16] MEDS: Menthol/Lanolin/Calamine/Znox 113 GM Tube 1 APPLIC TOPICAL ×2 (10:27→20:45)
[2021-08-16] MEDS: Enoxaparin 30 MG/0.3 ML Syringe SC ×2 (10:27→20:44)
[2021-08-16] MEDS: dexAMETHasone 4 MG Tablet 6 MG PO (10:27)
[2021-08-16] MEDS: Pantoprazole Sodium 40 MG Tablet PO (10:28)
[2021-08-16] MEDS: Calcium (Elemental) 500 MG Tablet PO (10:28)
[2021-08-16] MEDS: Magnesium Chloride 64 MG Delay Rel.Tablet 128 MG PO (10:28)
[2021-08-16] MEDS: amLODIPine 5 MG Tablet PO (10:28)
[2021-08-16] MEDS: Timolol 0.5% 5ML OPTH.BTL 1 DRP OPHTHALMIC ×2 (10:29→20:46)
[2021-08-16] MEDS: Ascorbic Acid 500 MG Tablet PO (10:29)
[2021-08-16] MEDS: Dorzolamide 2% 10ml Bottle 1 DRP OPHTHALMIC ×2 (10:29→20:46)
[2021-08-16] MEDS: Levothyroxine 50 MCG Tablet PO (10:29)
[2021-08-16] MEDS: Lisinopril 20 MG Tablet PO (10:30)
[2021-08-16] MEDS: Cholecalciferol (VIT D3) 25 MCG TABLET (1,000 UNITS) 50 MCG PO (10:30)
--- NOTE | 2021-08-16 10:41 | PCM.PN.INT ---
Assessment & Plan Assessment/Plan (1) Acute respiratory failure with hypoxia: (2) Pneumonia due to 2019 novel coronavirus: PLAN: RECOMMENDATIONS: 1. Wean FiO2 to maintain oxygen saturations at or above 90%. 2. Continue prophylactic Lovenox. 3. Completed Remdesivir. Decadron (08/18/2021) to be completed 4. Could consider AVAPS with 450 cc targeted tidal volume overnight with sleep to limit atelectasis/derecruitment 5. Awake prone positioning was encouraged. 6. Diuretics, as needed, to maintain euvolemic state. Hold Lasix today IMPRESSIONS: 1. Acute hypoxemic respiratory failure secondary to COVID-19 pneumonia The patient was initially admitted to the hospital on August 07 with worsening dyspnea and cough. Symptom onset was sometime around July 30. CTA chest was negative for PE but did demonstrate bilateral groundglass opacities. The patient was placed on remdesivir, Decadron and prophylactic Lovenox. The patient did ultimately refuse baricitinib. She is currently maintaining appropriate oxygen saturations on Airvo heated high flow. Diuretics can be utilized as needed to maintain euvolemic state. Awake prone positioning was encouraged. We will hold on further diuretics for today. Clinical suspicion is patient is improving, but dyspnea on evaluation was secondary to exertional issues. 2. Obesity/hypertension/hypothyroidism/GERD Complicates care, management, recovery and prognosis. Continue home medications as indicated. This note was generated with [employer] dictation software. It may contain incorrect words, spelling, and punctuation that were not noted in checking the note before signing. Subjective Subjective Patient did okay overnight. No acute issues were reported. Patient was very breathless on my evaluation, but had just had a bowel movement and was recovering. Patient thought that she was improved prior to this activity. Patient's oxygenation status has decreased from an FiO2 of 93% to 70%. No epistaxis has been reported. Objective Data Objective Data Vital Signs: Vital Signs Temp Pulse Resp BP Pulse Ox 36.6 C 71 20 H 101/50 L 93 08/16/21 10:40 08/16/21 10:40 08/16/21 10:40 08/16/21 10:40 08/16/21 10:40 Oxygen Flow Rate (L/min) 55 Oxygen Delivery Method Airvo Weight: 100.7 kg Body Mass Index (BMI) 35.8 Intake & Output: Intake and Output for Last 24 Hours 08/14/21 08/15/21 08/16/21 23:59 23:59 23:59 Intake Total 120 / 120 120 / 120 Output Total 350 / 350 300 / 300 300 / 300 Balance -230 / -230 -180 / -180 -300 / -300 Lab / Micro Data Result Diagrams: 08/16/21 05:05 08/16/21 05:05 Labs: Laboratory Results - last 24 hr 08/16/21 05:05: Sodium 134 L, Potassium 4.9, Chloride 100, Carbon Dioxide 26.0, Anion Gap 8, BUN 51 H, Creatinine 1.49 H, Estim Creat Clear Calc 33.83, Est GFR (MDRD) Af Amer 45 L, Est GFR (MDRD) Non-Af 37 L, BUN/Creatinine Ratio 34.2 H, Glucose 126 H, Calcium 8.7, Total Bilirubin 0.50, AST 17, ALT 34, Alkaline Phosphatase 79, Total Protein 6.6, Albumin 2.5 L, Globulin 4.1, Albumin/Globulin Ratio 0.6 L 08/16/21 05:05: WBC 9.1, RBC 4.80, Hgb 13.4, Hct 41.3, MCV 86.0, MCH 27.9, MCHC 32.4, RDW Std Deviation 42.9, RDW Coeff of Jaya 13.7, Plt Count 446, MPV 10.7, Immature Gran % (Auto) 2.000 H, Neut % (Auto) 75.6 H, Lymph % (Auto) 12.2 L, [place] % (Auto) 9.3, Eos % (Auto) 0.7, Baso % (Auto) 0.2, Absolute Neuts (auto) 6.9, Absolute Lymphs (auto) 1.10, Nucleated RBC % 0 Micro: Microbiology 08/07/21 06:05 Nasal Secretion SARS-CoV-2 Antigen (Rapid) - Final SARS-CoV-2 (COVID 19) Physical Exam Const alert Constitutional Narrative: On Airvo. Moderate conversational dyspnea noted General Appearance: cooperative Nutritional Appearance: obese HEENT normocephalic, head/scalp atraumatic and moist oral mucous membranes Eyes PERRL, EOMs intact bilaterally and conjunctivae normal Neck supple General: trachea midline Chest inspection of chest normal Chest: symmetrical chest wall rise; Negative for crepitus Resp normal respiratory effort Auscultation: diminished lung sounds; Negative for rales, rhonchi or wheezes Cardio regular rate and regular rhythm GI normal to inspection, nondistended, normoactive bowel sounds Extremity no clubbing, cyanosis or edema Skin no rashes or lesions noted Neuro CN's II-XII intact bilaterally, moves all extremities and no focal motor deficits Psych Mood & Affect: flat affect Charges/Coding Visit Charges Inpatient E&M: 82906 Subs Hosp L3
[2021-08-16] MEDS: traZODone 50 MG Tablet 75 MG PO (20:44)
[2021-08-16] MEDS: Acetaminophen 325 MG Tablet 650 MG PO (20:45)
[2021-08-16] MEDS: Latanoprost 0.005% 1 Bottle 1 DRP EACH EYE (20:46)
[2021-08-17] VITALS (10 sets, daily range): BP systolic 115–136; BP diastolic 61–84; PULSE 62–80; RESP 18–20; TEMP 36.3–36.8; O2SAT 90–96
[2021-08-17] MEDS: Acetaminophen 325 MG Tablet 650 MG PO ×2 (02:49→21:47)
[2021-08-17 06:41] LABS: Absolute Neutrophil Count 7.4 X10^3/uL (2.0-7.7); Basophil# 0.02 X10^3/uL; Basophil% 0.2 % (0-1); Eosinophil# 0.04 X10^3/uL; Eosinophils% 0.4 % (0-5); Hematocrit 42.3 % (37-47); Hemoglobin 13.3 g/dL (12.0-15.0); Lymphocyte % 10.5 % (19-41); Mean Corp Hgb Conc 31.4 g/dL (32-36); Mean Corpuscular Hgb 27.4 pg (27.0-32.0); Mean Platelet Vol. 11.1 fl (6.2-12.0); Monocyte# 0.93 X10^3/uL; Monocyte% 9.7 % (0-10); NRBC Flagged by Analyzer 0 % (0-5); Neutrophil # 7.41 X10^3/uL (2.7-7.7); Neutrophil % 77.6 % (47-70); Platelet Count 469 K/mm3 (150-450); RBC Distribution Width CV 13.4 % (11.6-14.6); Red Blood Count 4.86 M/mm3 (4.2-5.4); White Blood Count 9.6 K/mm3 (4.4-11.0)
[2021-08-17 07:02] LABS: Anion Gap 6 (5-15); BUN 51 mg/dL (7-18); Calcium,Total 8.9 mg/dL (8.5-10.1); Chloride 103 mmol/L (98-107); Creatinine, Serum 1.38 mg/dL (0.55-1.02); EST Glomerular Filtration Rate 40 mL/min (>60); Est Glom Filt Rate - Afr Amer 49 mL/min (>60); Estimated Creatinine Clearance 36.53 ml/min; Glucose 140 mg/dL (74-106); Potassium 5.1 mmol/L (3.5-5.1); Sodium Level 133 mmol/L (136-145)
[2021-08-17] MEDS: Magnesium Chloride 64 MG Delay Rel.Tablet 128 MG PO (09:27)
[2021-08-17] MEDS: Enoxaparin 30 MG/0.3 ML Syringe SC ×2 (09:27→21:43)
[2021-08-17] MEDS: Menthol/Lanolin/Calamine/Znox 113 GM Tube 1 APPLIC TOPICAL ×2 (09:27→21:43)
[2021-08-17] MEDS: Cholecalciferol (VIT D3) 25 MCG TABLET (1,000 UNITS) 50 MCG PO (09:28)
[2021-08-17] MEDS: Vitamin B Comp W-C Capsule 1 CAP PO (09:28)
[2021-08-17] MEDS: Ascorbic Acid 500 MG Tablet PO (09:28)
[2021-08-17] MEDS: Pantoprazole Sodium 40 MG Tablet PO (09:29)
[2021-08-17] MEDS: dexAMETHasone 4 MG Tablet 6 MG PO (09:29)
[2021-08-17] MEDS: Calcium (Elemental) 500 MG Tablet PO (09:29)
[2021-08-17] MEDS: amLODIPine 5 MG Tablet PO (09:29)
[2021-08-17] MEDS: Levothyroxine 50 MCG Tablet PO (09:29)
[2021-08-17] MEDS: Dorzolamide 2% 10ml Bottle 1 DRP OPHTHALMIC ×2 (09:30→21:44)
[2021-08-17] MEDS: Timolol 0.5% 5ML OPTH.BTL 1 DRP OPHTHALMIC ×2 (09:30→21:44)
[2021-08-17] MEDS: Furosemide 40 MG Tablet PO (10:21)
[2021-08-17] MEDS: Lisinopril 20 MG Tablet PO (10:22)
--- NOTE | 2021-08-17 11:39 | PCM.PN.HOSP ---
Subjective Subjective Doing well today, her oxygen is down to 10 L high flow nasal cannula continue to encourage incentive spirometry, Pep therapy, and proning Objective Data Objective Data Vital Signs: Vital Signs Temp Pulse Resp BP Pulse Ox 97.9 F 80 20 H 115/61 92 08/17/21 09:00 08/17/21 09:00 08/17/21 09:00 08/17/21 09:00 08/17/21 09:00 Oxygen Flow Rate (L/min) 10 Oxygen Delivery Method High Flow Weight: 222 lb 0.088 oz Body Mass Index (BMI) 35.8 Intake & Output: Intake and Output for Last 24 Hours 08/16/21 08/17/21 08/18/21 03:59 03:59 03:59 Intake Total 120 / 120 1000 / 1000 Output Total 600 / 600 450 / 450 Balance -480 / -480 550 / 550 Lab / Micro Data Result Diagrams: 08/17/21 05:14 08/17/21 05:14 Labs: Laboratory Results - last 24 hr 08/17/21 05:14: WBC 9.6, RBC 4.86, Hgb 13.3, Hct 42.3, MCV 87.0, MCH 27.4, MCHC 31.4 L, RDW Std Deviation 43.0, RDW Coeff of Jaya 13.4, Plt Count 469 H, MPV 11.1, Immature Gran % (Auto) 1.600 H, Neut % (Auto) 77.6 H, Lymph % (Auto) 10.5 L, [place] % (Auto) 9.7, Eos % (Auto) 0.4, Baso % (Auto) 0.2, Absolute Neuts (auto) 7.4, Absolute Lymphs (auto) 1.00, Nucleated RBC % 0 08/17/21 05:14: Sodium 133 L, Potassium 5.1, Chloride 103, Carbon Dioxide 24.0, Anion Gap 6, BUN 51 H, Creatinine 1.38 H, Estim Creat Clear Calc 36.53, Est GFR (MDRD) Af Amer 49 L, Est GFR (MDRD) Non-Af 40 L, BUN/Creatinine Ratio 37.0 H, Glucose 140 H, Calcium 8.9 Micro: Microbiology 08/07/21 06:05 Nasal Secretion SARS-CoV-2 Antigen (Rapid) - Final SARS-CoV-2 (COVID 19) Physical Exam Narrative Const alert, oriented x3 and no apparent distress General Appearance: cooperative HEENT normocephalic and moist oral mucous membranes Eyes PERRL, EOMs intact bilaterally and conjunctivae normal Neck supple and no JVD Resp normal respiratory effort, no retractions and no use of accessory muscles Auscultation: diminished lung sounds; Negative for crackles, rales, rhonchi or wheezes Cardio regular rate, regular rhythm, S1 normal heart sound, S2 normal heart sound and no murmurs GI soft to palpation, non-tender and non-distended; Negative for hepatosplenomegaly Extremity no clubbing, cyanosis or edema Skin no rashes or lesions noted Neuro no focal motor deficits and no sensory deficits noted Psych affect normal Appearance: appropriate Assessment & Plan Assessment/Plan (1) Pneumonia due to 2019 novel coronavirus: (2) Acute respiratory failure with hypoxia: PLAN: 1. Acute hypoxic respiratory failure due to COVID-19 pneumonia/elevated D-dimer ? Secondary to COVID-19 pneumonia admitted to regular nursing floor placed on supplemental oxygen started on Decadron and remdesivir. ? D-dimer was elevated, CTA of the chest was for PE -08/08/2021;Patient admitted to regular nursing floor with acute hypoxic respiratory failure secondary to COVID-19. Patient is currently requiring high flow oxygen via Airvo. Patient was offered baricitinib by infectious disease patient declined - 08/09/2021; remains on high flow oxygen via Airvo. CTA obtained did demonstrate No evidence of pulmonary embolism. Diffuse bilateral pulmonary infiltrates worse in the left upper lobe andright lower lobe. -08/10/2021; Patient seen no change in her overall condition. Still remains on high flow oxygen via Airvo -08/11/2021; Patient seen no significant change in her overall condition. Still remains on Airvo with FiO2 of 90% with flow rate of 40 L/min -08/12/2021 no change in patient's clinical condition. Patient appears depressed. Patient remains on Airvo with flow rate of 50 L/min. -08/13/2021;Patient seen still remains on high flow oxygen Airvo 50 L/min with FiO2 of 83%. ?08/14/2021: Continue with air Vo. She may benefit from BiPAP overnight -08/15/2021: We will recommend BiPAP overnight to maintain oxygenation and improvement. FiO2 is coming down ? 08/16/2021: Continue with air Vo, she is slowly improving. ? 08/17/2021: Down to 10 L high flow nasal cannula, continue to monitor and encourage pulmonary toileting. Completed Decadron 2. Chronic kidney disease stage IIIa ? Patient creatinine at baseline. Plan is to monitor closely in view of patient presentation. Patient will be monitored with daily BMPs ? We will continue to monitor renal function and adjust diuresis as necessary 3. Hypothyroidism ? On levothyroxine did continue 4. Essential hypertension ? Did continue with home meds with plan to adjust doses if required DVT: Lovenox Charges/Coding Visit Charges Inpatient E&M: 38888 Subs Hosp L2
--- NOTE | 2021-08-17 13:52 | PCM.PN.INT ---
Assessment & Plan Assessment/Plan (1) Acute respiratory failure with hypoxia: (2) Pneumonia due to 2019 novel coronavirus: PLAN: RECOMMENDATIONS: 1. Wean FiO2 to maintain oxygen saturations at or above 90%. 2. Continue prophylactic Lovenox. 3. Completed Remdesivir. Decadron (08/18/2021) to be completed 4. Encourage incentive spirometer, Acapella and prone positioning as tolerated 5. Diuretics, as needed, to maintain euvolemic state. Challenge with Lasix today IMPRESSIONS: 1. Acute hypoxemic respiratory failure secondary to COVID-19 pneumonia The patient was initially admitted to the hospital on August 07 with worsening dyspnea and cough. Symptom onset was sometime around July 30. CTA chest was negative for PE but did demonstrate bilateral groundglass opacities. The patient was placed on remdesivir, Decadron and prophylactic Lovenox. The patient did ultimately refuse baricitinib. Patient continues to improve relatively rapidly. We will challenge with Lasix today. May start walking oximetry's in the next 24 to 48 hours if patient continues to improve at this rate. 2. Obesity/hypertension/hypothyroidism/GERD Complicates care, management, recovery and prognosis. Continue home medications as indicated. This note was generated with [employer] dictation software. It may contain incorrect words, spelling, and punctuation that were not noted in checking the note before signing. Subjective Subjective Patient did okay overnight. Patient with no complaints at rest this morning. Patient's oxygenation continues to improve rapidly. Patient is currently on 9 L nasal cannula. Patient does report significant dyspnea on exertion. Objective Data Objective Data Vital Signs: Vital Signs Temp Pulse Resp BP Pulse Ox 36.6 C 80 20 H 115/61 93 08/17/21 09:00 08/17/21 09:00 08/17/21 13:19 08/17/21 09:00 08/17/21 13:19 Oxygen Flow Rate (L/min) 10 Oxygen Delivery Method High Flow Weight: 100.7 kg Body Mass Index (BMI) 35.8 Intake & Output: Intake and Output for Last 24 Hours 08/15/21 08/16/21 08/17/21 23:59 23:59 23:59 Intake Total 120 / 120 2000 / 2000 Output Total 300 / 300 300 / 300 450 / 450 Balance -180 / -180 -300 / -300 1550 / 1550 Lab / Micro Data Result Diagrams: 08/17/21 05:14 08/17/21 05:14 Labs: Laboratory Results - last 24 hr 08/17/21 05:14: WBC 9.6, RBC 4.86, Hgb 13.3, Hct 42.3, MCV 87.0, MCH 27.4, MCHC 31.4 L, RDW Std Deviation 43.0, RDW Coeff of Jaya 13.4, Plt Count 469 H, MPV 11.1, Immature Gran % (Auto) 1.600 H, Neut % (Auto) 77.6 H, Lymph % (Auto) 10.5 L, [place] % (Auto) 9.7, Eos % (Auto) 0.4, Baso % (Auto) 0.2, Absolute Neuts (auto) 7.4, Absolute Lymphs (auto) 1.00, Nucleated RBC % 0 08/17/21 05:14: Sodium 133 L, Potassium 5.1, Chloride 103, Carbon Dioxide 24.0, Anion Gap 6, BUN 51 H, Creatinine 1.38 H, Estim Creat Clear Calc 36.53, Est GFR (MDRD) Af Amer 49 L, Est GFR (MDRD) Non-Af 40 L, BUN/Creatinine Ratio 37.0 H, Glucose 140 H, Calcium 8.9 Micro: Microbiology 08/07/21 06:05 Nasal Secretion SARS-CoV-2 Antigen (Rapid) - Final SARS-CoV-2 (COVID 19) Physical Exam Const alert Constitutional Narrative: On nasal cannula. No conversational dyspnea noted General Appearance: cooperative Nutritional Appearance: obese HEENT normocephalic, head/scalp atraumatic and moist oral mucous membranes Eyes PERRL, EOMs intact bilaterally and conjunctivae normal Neck supple General: trachea midline Chest inspection of chest normal Chest: symmetrical chest wall rise; Negative for crepitus Resp normal respiratory effort Auscultation: diminished lung sounds; Negative for rales, rhonchi or wheezes Cardio regular rate and regular rhythm GI normal to inspection, nondistended, normoactive bowel sounds Extremity no clubbing, cyanosis or edema Skin no rashes or lesions noted Neuro CN's II-XII intact bilaterally, moves all extremities and no focal motor deficits Psych Mood & Affect: flat affect Charges/Coding Visit Charges Inpatient E&M: 97453 Subs Hosp L2
[2021-08-17] MEDS: traZODone 50 MG Tablet 75 MG PO (21:43)
[2021-08-17] MEDS: Latanoprost 0.005% 1 Bottle 1 DRP EACH EYE (21:44)
[2021-08-18] VITALS (9 sets, daily range): BP systolic 102–125; BP diastolic 52–73; PULSE 65–81; RESP 18; TEMP 36.1–36.8; O2SAT 92–95
[2021-08-18 06:53] LABS: Anion Gap 5 (5-15); BUN 58 mg/dL (7-18); BUN/Creat Ratio 36.5 RATIO (10-20); Calcium,Total 8.9 mg/dL (8.5-10.1); Chloride 101 mmol/L (98-107); Creatinine, Serum 1.59 mg/dL (0.55-1.02); EST Glomerular Filtration Rate 34 mL/min (>60); Est Glom Filt Rate - Afr Amer 41 mL/min (>60); Glucose 135 mg/dL (74-106); Potassium 5.4 mmol/L (3.5-5.1); Sodium Level 132 mmol/L (136-145)
--- NOTE | 2021-08-18 09:29 | PCM.PN.INT ---
Assessment & Plan Assessment/Plan (1) Acute respiratory failure with hypoxia: (2) Pneumonia due to 2019 novel coronavirus: PLAN: RECOMMENDATIONS: 1. Wean FiO2 to maintain oxygen saturations at or above 90%. 2. Continue prophylactic Lovenox. 3. Completed Remdesivir. Decadron (08/18/2021), to be completed today 4. Encourage incentive spirometer, Acapella and prone positioning as tolerated 5. Diuretics, as needed, to maintain euvolemic state. Hold on challenge with Lasix today IMPRESSIONS: 1. Acute hypoxemic respiratory failure secondary to COVID-19 pneumonia The patient was initially admitted to the hospital on August 07 with worsening dyspnea and cough. Symptom onset was sometime around July 30. CTA chest was negative for PE but did demonstrate bilateral groundglass opacities. The patient was placed on remdesivir, Decadron and prophylactic Lovenox. The patient did ultimately refuse baricitinib. Patient continues to improve relatively rapidly. Hold on further Lasix given patient's elevation in creatinine. May start walking oximetries in the next 24 to 48 hours if patient continues to improve at this rate. 2. Obesity/hypertension/hypothyroidism/GERD Complicates care, management, recovery and prognosis. Continue home medications as indicated. This note was generated with [employer] dictation software. It may contain incorrect words, spelling, and punctuation that were not noted in checking the note before signing. Subjective Subjective Patient did well overnight. No acute issues are reported. Patient subjectively feels slightly improved compared to yesterday. Patient able to maintain on nasal cannula oxygen. Patient does report a dry cough with exertion. Objective Data Objective Data Vital Signs: Vital Signs Temp Pulse Resp BP Pulse Ox 36.4 C L 67 18 122/73 H 94 08/18/21 03:14 08/18/21 03:14 08/18/21 03:14 08/18/21 03:14 08/18/21 03:15 Oxygen Flow Rate (L/min) 7 Oxygen Delivery Method High Flow Weight: 100.7 kg Body Mass Index (BMI) 35.8 Intake & Output: Intake and Output for Last 24 Hours 08/16/21 08/17/21 08/18/21 23:59 23:59 23:59 Intake Total 1999 / 1999 Output Total 300 / 300 450 / 450 200 / 200 Balance -300 / -300 1550 / 1550 -200 / -200 Lab / Micro Data Result Diagrams: 08/17/21 05:14 08/18/21 05:50 Labs: Laboratory Results - last 24 hr 08/18/21 05:50: Sodium 132 L, Potassium 5.4 H, Chloride 101, Carbon Dioxide 26.0, Anion Gap 5, BUN 58 H, Creatinine 1.59 H, Estim Creat Clear Calc 31.70, Est GFR (MDRD) Af Amer 41 L, Est GFR (MDRD) Non-Af 34 L, BUN/Creatinine Ratio 36.5 H, Glucose 135 H, Calcium 8.9 Micro: Microbiology 08/07/21 06:05 Nasal Secretion SARS-CoV-2 Antigen (Rapid) - Final SARS-CoV-2 (COVID 19) Physical Exam Const alert Constitutional Narrative: On nasal cannula eating breakfast. No conversational dyspnea noted General Appearance: cooperative Nutritional Appearance: obese HEENT normocephalic, head/scalp atraumatic and moist oral mucous membranes Eyes PERRL, EOMs intact bilaterally and conjunctivae normal Neck supple General: trachea midline Chest inspection of chest normal Chest: symmetrical chest wall rise; Negative for crepitus Resp normal respiratory effort Auscultation: diminished lung sounds; Negative for rales, rhonchi or wheezes Cardio regular rate and regular rhythm GI normal to inspection, nondistended, normoactive bowel sounds Extremity no clubbing, cyanosis or edema Skin no rashes or lesions noted Neuro CN's II-XII intact bilaterally, moves all extremities and no focal motor deficits Psych Mood & Affect: flat affect Charges/Coding Visit Charges Inpatient E&M: 34177 Subs Hosp L2
[2021-08-18] MEDS: Cholecalciferol (VIT D3) 25 MCG TABLET (1,000 UNITS) 50 MCG PO (09:39)
[2021-08-18] MEDS: amLODIPine 5 MG Tablet PO (09:39)
[2021-08-18] MEDS: dexAMETHasone 4 MG Tablet 6 MG PO (09:39)
[2021-08-18] MEDS: Enoxaparin 30 MG/0.3 ML Syringe SC ×2 (09:39→21:06)
[2021-08-18] MEDS: Calcium (Elemental) 500 MG Tablet PO (09:40)
[2021-08-18] MEDS: Levothyroxine 50 MCG Tablet PO (09:40)
[2021-08-18] MEDS: Magnesium Chloride 64 MG Delay Rel.Tablet 128 MG PO (09:40)
[2021-08-18] MEDS: Pantoprazole Sodium 40 MG Tablet PO (09:40)
[2021-08-18] MEDS: Lisinopril 20 MG Tablet PO (09:40)
[2021-08-18] MEDS: Vitamin B Comp W-C Capsule 1 CAP PO (09:40)
[2021-08-18] MEDS: Ascorbic Acid 500 MG Tablet PO (09:40)
[2021-08-18] MEDS: Menthol/Lanolin/Calamine/Znox 113 GM Tube 1 APPLIC TOPICAL ×2 (09:41→21:05)
[2021-08-18] MEDS: Dorzolamide 2% 10ml Bottle 1 DRP OPHTHALMIC ×2 (09:42→21:05)
[2021-08-18] MEDS: Timolol 0.5% 5ML OPTH.BTL 1 DRP OPHTHALMIC ×2 (09:43→21:05)
[2021-08-18] MEDS: Acetaminophen 325 MG Tablet 650 MG PO ×2 (10:15→21:04)
--- NOTE | 2021-08-18 11:29 | PCM.PN.HOSP ---
Subjective Subjective Doing well, oxygen requirements are improving she is down to 7 L. She did have a slight increase in her creatinine today so we will hold back on diuresis Objective Data Objective Data Vital Signs: Vital Signs Temp Pulse Resp BP Pulse Ox 97.0 F L 65 18 102/60 94 08/18/21 09:15 08/18/21 09:15 08/18/21 09:15 08/18/21 09:15 08/18/21 09:15 Oxygen Flow Rate (L/min) 7 Oxygen Delivery Method High Flow Weight: 222 lb 0.088 oz Body Mass Index (BMI) 35.8 Intake & Output: Intake and Output for Last 24 Hours 08/17/21 08/18/21 08/19/21 03:59 03:59 03:59 Intake Total 1000 / 1000 1000 / 1000 Output Total 450 / 450 200 / 200 Balance 550 / 550 1000 / 1000 -200 / -200 Lab / Micro Data Result Diagrams: 08/17/21 05:14 08/18/21 05:50 Labs: Laboratory Results - last 24 hr 08/18/21 05:50: Sodium 132 L, Potassium 5.4 H, Chloride 101, Carbon Dioxide 26.0, Anion Gap 5, BUN 58 H, Creatinine 1.59 H, Estim Creat Clear Calc 31.70, Est GFR (MDRD) Af Amer 41 L, Est GFR (MDRD) Non-Af 34 L, BUN/Creatinine Ratio 36.5 H, Glucose 135 H, Calcium 8.9 Micro: Microbiology 08/07/21 06:05 Nasal Secretion SARS-CoV-2 Antigen (Rapid) - Final SARS-CoV-2 (COVID 19) Physical Exam Narrative Const alert, oriented x3 and no apparent distress General Appearance: cooperative HEENT normocephalic and moist oral mucous membranes Eyes PERRL, EOMs intact bilaterally and conjunctivae normal Neck supple and no JVD Resp normal respiratory effort, no retractions and no use of accessory muscles Auscultation: diminished lung sounds; Negative for crackles, rales, rhonchi or wheezes Cardio regular rate, regular rhythm, S1 normal heart sound, S2 normal heart sound and no murmurs GI soft to palpation, non-tender and non-distended; Negative for hepatosplenomegaly Extremity no clubbing, cyanosis or edema Skin no rashes or lesions noted Neuro no focal motor deficits and no sensory deficits noted Psych affect normal Appearance: appropriate Assessment & Plan Assessment/Plan (1) Pneumonia due to 2019 novel coronavirus: (2) Acute respiratory failure with hypoxia: PLAN: 1. Acute hypoxic respiratory failure due to COVID-19 pneumonia/elevated D-dimer ? Secondary to COVID-19 pneumonia admitted to regular nursing floor placed on supplemental oxygen started on Decadron and remdesivir. ? D-dimer was elevated, CTA of the chest was for PE -08/08/2021;Patient admitted to regular nursing floor with acute hypoxic respiratory failure secondary to COVID-19. Patient is currently requiring high flow oxygen via Airvo. Patient was offered baricitinib by infectious disease patient declined - 08/09/2021; remains on high flow oxygen via Airvo. CTA obtained did demonstrate No evidence of pulmonary embolism. Diffuse bilateral pulmonary infiltrates worse in the left upper lobe andright lower lobe. -08/10/2021; Patient seen no change in her overall condition. Still remains on high flow oxygen via Airvo -08/11/2021; Patient seen no significant change in her overall condition. Still remains on Airvo with FiO2 of 90% with flow rate of 40 L/min -08/12/2021 no change in patient's clinical condition. Patient appears depressed. Patient remains on Airvo with flow rate of 50 L/min. -08/13/2021;Patient seen still remains on high flow oxygen Airvo 50 L/min with FiO2 of 83%. ?08/14/2021: Continue with air Vo. She may benefit from BiPAP overnight -08/15/2021: We will recommend BiPAP overnight to maintain oxygenation and improvement. FiO2 is coming down ? 08/16/2021: Continue with air Vo, she is slowly improving. ? 08/17/2021: Down to 10 L high flow nasal cannula, continue to monitor and encourage pulmonary toileting. Completed Decadron ? 08/18/2021: Down to 7 L nasal cannula hold off diuresis 2. Chronic kidney disease stage IIIa ? Patient creatinine at baseline. Plan is to monitor closely in view of patient presentation. Patient will be monitored with daily BMPs ? We will continue to monitor renal function and adjust diuresis as necessary 3. Hypothyroidism ? On levothyroxine did continue 4. Essential hypertension ? Did continue with home meds with plan to adjust doses if required DVT: Lovenox Charges/Coding Visit Charges Inpatient E&M: 84300 Subs Hosp L2
[2021-08-18] MEDS: traZODone 50 MG Tablet 75 MG PO (21:05)
[2021-08-18] MEDS: Latanoprost 0.005% 1 Bottle 1 DRP EACH EYE (21:06)
[2021-08-19 03:44] VITALS: BP 119/70; PULSE 73; RESP 18; TEMP 36.7; O2SAT 96
[2021-08-19 03:45] VITALS: O2SAT 96
[2021-08-19 06:48] LABS: Anion Gap 3 (5-15); BUN 59 mg/dL (7-18); BUN/Creat Ratio 37.1 RATIO (10-20); Calcium,Total 8.8 mg/dL (8.5-10.1); Chloride 103 mmol/L (98-107); Creatinine, Serum 1.59 mg/dL (0.55-1.02); EST Glomerular Filtration Rate 34 mL/min (>60); Est Glom Filt Rate - Afr Amer 41 mL/min (>60); Glucose 125 mg/dL (74-106); Potassium 5.6 mmol/L (3.5-5.1); Sodium Level 134 mmol/L (136-145)
[2021-08-19 08:42] VITALS: BP 109/68; PULSE 74; RESP 18; TEMP 36.6; O2SAT 94
[2021-08-19] MEDS: Dorzolamide 2% 10ml Bottle 1 DRP OPHTHALMIC (08:43)
[2021-08-19] MEDS: Timolol 0.5% 5ML OPTH.BTL 1 DRP OPHTHALMIC (08:43)
[2021-08-19] MEDS: Menthol/Lanolin/Calamine/Znox 113 GM Tube 1 APPLIC TOPICAL (08:44)
[2021-08-19] MEDS: Magnesium Chloride 64 MG Delay Rel.Tablet 128 MG PO (08:44)
[2021-08-19] MEDS: Enoxaparin 30 MG/0.3 ML Syringe SC (08:44)
[2021-08-19] MEDS: Ascorbic Acid 500 MG Tablet PO (08:45)
[2021-08-19] MEDS: Pantoprazole Sodium 40 MG Tablet PO (08:45)
[2021-08-19] MEDS: Levothyroxine 50 MCG Tablet PO (08:45)
[2021-08-19] MEDS: amLODIPine 5 MG Tablet PO (08:45)
[2021-08-19] MEDS: Vitamin B Comp W-C Capsule 1 CAP PO (08:45)
[2021-08-19] MEDS: Calcium (Elemental) 500 MG Tablet PO (08:46)
[2021-08-19] MEDS: Cholecalciferol (VIT D3) 25 MCG TABLET (1,000 UNITS) 50 MCG PO (08:46)
--- NOTE | 2021-08-19 08:47 | PCM.PN.INT ---
Assessment & Plan Assessment/Plan (1) Acute respiratory failure with hypoxia: (2) Pneumonia due to 2019 novel coronavirus: PLAN: RECOMMENDATIONS: 1. Wean FiO2 to maintain oxygen saturations at or above 90%. 2. Continue prophylactic Lovenox. 3. Completed Remdesivir and Decadron therapy 4. Encourage incentive spirometer, Acapella and prone positioning as tolerated 5. Diuretics, as needed, to maintain euvolemic state. Hold on challenge with Lasix today IMPRESSIONS: 1. Acute hypoxemic respiratory failure secondary to COVID-19 pneumonia The patient was initially admitted to the hospital on August 07 with worsening dyspnea and cough. Symptom onset was sometime around July 30. CTA chest was negative for PE but did demonstrate bilateral groundglass opacities. The patient has completed Remdesivir and Decadron therapy. Continue prophylactic Lovenox. The patient did ultimately refuse baricitinib. Patient continues to improve relatively rapidly. Hold on further Lasix given patient's elevation in creatinine. Initiate daily walking oximetries. Patient can be discharged if she is able to tolerate ambulation on 6 L or less with follow-up in our office in 4 to 6 weeks. 2. Obesity/hypertension/hypothyroidism/GERD Complicates care, management, recovery and prognosis. Continue home medications as indicated. This note was generated with [employer] dictation software. It may contain incorrect words, spelling, and punctuation that were not noted in checking the note before signing. Subjective Subjective Patient continues to improve. Patient states she has been able to walk to the bathroom and back without assistance. Patient denies any nausea or vomiting. Patient has been tolerating nasal cannula. Minor nasal stuffiness has been reported without epistaxis. Objective Data Objective Data Vital Signs: Vital Signs Temp Pulse Resp BP Pulse Ox 36.6 C 74 18 109/68 94 08/19/21 08:42 08/19/21 08:42 08/19/21 08:42 08/19/21 08:42 08/19/21 08:42 Oxygen Flow Rate (L/min) 3 Oxygen Delivery Method Nasal Cannula Weight: 100.7 kg Body Mass Index (BMI) 35.8 Intake & Output: Intake and Output for Last 24 Hours 08/17/21 08/18/21 08/19/21 23:59 23:59 23:59 Intake Total 1999 / 1999 350 / 350 Output Total 450 / 450 200 / 200 Balance 1550 / 1550 150 / 150 Lab / Micro Data Result Diagrams: 08/17/21 05:14 08/19/21 05:42 Labs: Laboratory Results - last 24 hr 08/19/21 05:42: Sodium 134 L, Potassium 5.6 H, Chloride 103, Carbon Dioxide 28.0, Anion Gap 3 L, BUN 59 H, Creatinine 1.59 H, Estim Creat Clear Calc 31.70, Est GFR (MDRD) Af Amer 41 L, Est GFR (MDRD) Non-Af 34 L, BUN/Creatinine Ratio 37.1 H, Glucose 125 H, Calcium 8.8 Micro: Microbiology 08/07/21 06:05 Nasal Secretion SARS-CoV-2 Antigen (Rapid) - Final SARS-CoV-2 (COVID 19) Physical Exam Const alert Constitutional Narrative: On nasal cannula without conversational dyspnea General Appearance: cooperative Nutritional Appearance: obese HEENT normocephalic, head/scalp atraumatic and moist oral mucous membranes Eyes PERRL, EOMs intact bilaterally and conjunctivae normal Neck supple General: trachea midline Chest inspection of chest normal Chest: symmetrical chest wall rise; Negative for crepitus Resp normal respiratory effort Auscultation: diminished lung sounds; Negative for rales, rhonchi or wheezes Cardio regular rate and regular rhythm GI normal to inspection, nondistended, normoactive bowel sounds Extremity no clubbing, cyanosis or edema Skin no rashes or lesions noted Neuro CN's II-XII intact bilaterally, moves all extremities and no focal motor deficits Psych mental status grossly normal, thought process normal, cooperative and affect normal Charges/Coding Visit Charges Inpatient E&M: 08426 Subs Hosp L2
--- NOTE | 2021-08-19 11:07 | PCM.PN.HOSP ---
Subjective Subjective Doing well, no issues overnight. Her oxygen is down to about 3 L nasal cannula at rest. We will obtain an ambulatory pulse ox. Objective Data Objective Data Vital Signs: Vital Signs Temp Pulse Resp BP Pulse Ox 98 F 74 18 109/68 94 08/19/21 08:42 08/19/21 08:42 08/19/21 08:42 08/19/21 08:42 08/19/21 08:42 Oxygen Flow Rate (L/min) 3 Oxygen Delivery Method High Flow Weight: 222 lb 0.088 oz Body Mass Index (BMI) 35.8 Intake & Output: Intake and Output for Last 24 Hours 08/18/21 08/19/21 08/20/21 03:59 03:59 03:59 Intake Total 1000 / 1000 350 / 350 Output Total 200 / 200 Balance 1000 / 1000 150 / 150 Lab / Micro Data Result Diagrams: 08/17/21 05:14 08/19/21 05:42 Labs: Laboratory Results - last 24 hr 08/19/21 05:42: Sodium 134 L, Potassium 5.6 H, Chloride 103, Carbon Dioxide 28.0, Anion Gap 3 L, BUN 59 H, Creatinine 1.59 H, Estim Creat Clear Calc 31.70, Est GFR (MDRD) Af Amer 41 L, Est GFR (MDRD) Non-Af 34 L, BUN/Creatinine Ratio 37.1 H, Glucose 125 H, Calcium 8.8 Micro: Microbiology 08/07/21 06:05 Nasal Secretion SARS-CoV-2 Antigen (Rapid) - Final SARS-CoV-2 (COVID 19) Physical Exam Narrative Const alert, oriented x3 and no apparent distress General Appearance: cooperative HEENT normocephalic and moist oral mucous membranes Eyes PERRL, EOMs intact bilaterally and conjunctivae normal Neck supple and no JVD Resp normal respiratory effort, no retractions and no use of accessory muscles Auscultation: diminished lung sounds; Negative for crackles, rales, rhonchi or wheezes Cardio regular rate, regular rhythm, S1 normal heart sound, S2 normal heart sound and no murmurs GI soft to palpation, non-tender and non-distended; Negative for hepatosplenomegaly Extremity no clubbing, cyanosis or edema Skin no rashes or lesions noted Neuro no focal motor deficits and no sensory deficits noted Psych affect normal Appearance: appropriate Assessment & Plan Assessment/Plan (1) Pneumonia due to 2019 novel coronavirus: (2) Acute respiratory failure with hypoxia: PLAN: 1. Acute hypoxic respiratory failure due to COVID-19 pneumonia/elevated D-dimer ? Secondary to COVID-19 pneumonia admitted to regular nursing floor placed on supplemental oxygen started on Decadron and remdesivir. ? D-dimer was elevated, CTA of the chest was for PE -08/08/2021;Patient admitted to regular nursing floor with acute hypoxic respiratory failure secondary to COVID-19. Patient is currently requiring high flow oxygen via Airvo. Patient was offered baricitinib by infectious disease patient declined - 08/09/2021; remains on high flow oxygen via Airvo. CTA obtained did demonstrate No evidence of pulmonary embolism. Diffuse bilateral pulmonary infiltrates worse in the left upper lobe andright lower lobe. -08/10/2021; Patient seen no change in her overall condition. Still remains on high flow oxygen via Airvo -08/11/2021; Patient seen no significant change in her overall condition. Still remains on Airvo with FiO2 of 90% with flow rate of 40 L/min -08/12/2021 no change in patient's clinical condition. Patient appears depressed. Patient remains on Airvo with flow rate of 50 L/min. -08/13/2021;Patient seen still remains on high flow oxygen Airvo 50 L/min with FiO2 of 83%. ?08/14/2021: Continue with air Vo. She may benefit from BiPAP overnight -08/15/2021: We will recommend BiPAP overnight to maintain oxygenation and improvement. FiO2 is coming down ? 08/16/2021: Continue with air Vo, she is slowly improving. ? 08/17/2021: Down to 10 L high flow nasal cannula, continue to monitor and encourage pulmonary toileting. Completed Decadron ? 08/18/2021: Down to 7 L nasal cannula hold off diuresis neck ?08/19/2021: Creatinine is stable but elevated, will hold off any Lasix today and see how she does with her ambulatory pulse ox. 2. Chronic kidney disease stage IIIa ? Patient creatinine at baseline. Plan is to monitor closely in view of patient presentation. Patient will be monitored with daily BMPs ? We will continue to monitor renal function and adjust diuresis as necessary 3. Hypothyroidism ? On levothyroxine did continue 4. Essential hypertension ? Did continue with home meds with plan to adjust doses if required DVT: Lovenox Charges/Coding Visit Charges Inpatient E&M: 98159 Subs Hosp L2
[2021-08-19 13:26] VITALS: O2SAT 92
[2021-08-19 14:12] VITALS: O2SAT 88; O2SAT 90
--- NOTE | 2021-08-19 14:50 | PCM.DC ---
Discharge Instructions Diet Discharge Diet: Low fat / Low cholesterol Activity Discharge Activity: Return to Normal Activity Dressing / Incision Call your doctor if you observe: Fever of 101 or Higher, Shortness of breath, Dizziness, Fainting spells, Swelling in the ankles, Chest pain and Increased palpitations (irregular heartbeat) Follow Up Care Test Results: Test results from this visit will be discussed in further detail at your follow-up appointment, if applicable. Discharge Plan Admission Admit Date/Time: 08/07/21 06:47 Attending Provider: Neo Murray Primary Care Provider: Kamar Lopez Consulting Providers: Antoni Everett ; Asuncion Carreon NP ; Kamar Guerin ; Mahad Rodriguez Instructions Additional Instructions / Restrictions: Follow-up with your PCP early next week to obtain BMP to monitor your renal function. As discussed your kidney function is a little bit elevated at 1.56 that has remained stable for the last 2 days. Your potassium is also a little bit elevated to 5.6 therefore we will discontinue your combination amlodipine benazepril blood pressure medication until early next week. Discharge Orders/Prescriptions Prescriptions: Continued trazodone 150 mg tablet 75 mg PO QHS RF: 0 tramadol 50 mg tablet 50 - 100 mg PO Q8H PRN PRN (Reason: Pain) RF: 0 celecoxib 200 mg capsule 200 mg PO DAILY RF: 0 pantoprazole 20 MG tablet 40 mg PO DAILY RF: 0 latanoprost 1 DROP bottle 1 drp EACH EYE QHS RF: 0 levothyroxine 25 MCG tablet 50 mcg PO DAILY RF: 0 vitamin E 400 UNIT capsule 400 unit PO DAILY RF: 0 timolol maleate 1 DROP gel forming solution 1 drp EACH EYE BID RF: 0 omega 3-[id number]-fish oil 500 MG capsule,delayed release(DR/EC) 1,200 mg PO BID RF: 0 calcium carbonate 600 MG tablet 1,000 iu PO DAILY RF: 0 vitamin B comp and C no.3 1 EACH capsule 1 ea PO DAILY RF: 0 cholecalciferol (vitamin D3) 2,000 UNIT capsule 1,000 unit PO DAILY RF: 0 digestive 8-L.acidoph-pectin 1 EACH tablet 1 ea PO DAILY RF: 0 acetaminophen 650 mg Tablet 650 mg PO Q4H PRN (Reason: Pain) RF: 0 ascorbic acid (vitamin C) [Vitamin C] 500 mg Tablet 500 mg PO DAILY RF: 0 magnesium 200 mg Tablet 400 mg PO DAILY RF: 0 cholecalciferol (vitamin D3) [Vitamin D3] 10 mcg (400 unit) Capsule 15 mcg PO DAILY RF: 0 cinnamon bark [Cinnamon] 500 mg Capsule 500 mg PO DAILY RF: 0 cranberry juice Liquid 8 ml PO DAILY RF: 0 Plant Enzymes 1 dose PO/SL TIDCM RF: 0 Tumeric 1 cap PO/SL BID RF: 0 dorzolamide-timolol 22.3-6.8 mg/mL drops 1 drp EACH EYE BID RF: 0 Held amlodipine-benazepril 5-20 mg capsule 1 cap PO DAILY RF: 0 Hold Instructions: Resume on 08/23/21. Referrals / Follow Up: Antoni Everett MD [STAFF PHYSICIAN] - Within 3 Months Kamar Lopez DO [Primary Care Provider] - Within 1 Week Disposition Disposition (needs filled in before D/C Order can be placed): Home, Self Care
--- NOTE | 2021-08-19 15:07 | PCM.DC.SUM ---
Providers Date of Admission: 08/07/21 Primary Care Physician: Dr. 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 Routine Consulting Provider: Mahad Rodriguez Reason for Consult: Covid-19 EMERGENT Consult: No Notified: Yes Date Notified: 08/07/21 Time Notified: 12:08 Method of Notification: Text Reason For Visit: ACUTE HYPOXEMIC RESPIRATORY FAILURE SECONDARY Diagnosis Discharge Diagnosis (1) Pneumonia due to 2019 novel coronavirus: Status: Acute Code(s): U07.1 - COVID-19; J12.82 - Pneumonia due to coronavirus disease 2019 (2) Acute respiratory failure with hypoxia: Status: Acute Code(s): J96.01 - Acute respiratory failure with hypoxia Medications at Discharge Home Medications pantoprazole 40 mg PO DAILY 08/23/13 latanoprost 1 drp EACH EYE QHS 05/12/15 levothyroxine 50 mcg PO DAILY 05/12/15 omega 1-eqk-wsm-fish oil 1,200 mg PO BID 05/12/15 timolol maleate 1 drp EACH EYE BID 05/12/15 vitamin E 400 unit PO DAILY 05/12/15 calcium carbonate 1,000 iu PO DAILY 03/05/16 vitamin B comp and C no.3 1 ea PO DAILY 03/05/16 cholecalciferol (vitamin D3) 1,000 unit PO DAILY 09/03/16 digestive 8-L.acidoph-pectin 1 ea PO DAILY 01/15/17 trazodone 150 mg tablet 75 mg PO QHS tab 07/17/17 amlodipine 5 mg-benazepril 20 mg capsule 1 cap PO DAILY 05/12/20 celecoxib 200 mg capsule 200 mg PO DAILY cap 05/12/20 tramadol 50 mg tablet 50 - 100 mg PO Q8H PRN PRN 05/12/20 Plant Enzymes 1 dose PO/SL TIDCM 08/07/21 Tumeric 1 cap PO/SL BID 08/07/21 acetaminophen 650 mg PO Q4H PRN 08/07/21 ascorbic acid (vitamin C) [Vitamin C] 500 mg PO DAILY 08/07/21 cholecalciferol (vitamin D3) [Vitamin D3] 15 mcg PO DAILY 08/07/21 cinnamon bark [Cinnamon] 500 mg PO DAILY 08/07/21 cranberry juice 8 ml PO DAILY 08/07/21 dorzolamide-timolol 1 drp EACH EYE BID 08/07/21 magnesium 400 mg PO DAILY 08/07/21 Hospital Course Operations None Procedures None Summary of Care Provided Minutes Spent on Discharge: 43 Hospital Course: Per HPI: CAROLINA SINGH, is a 70 F who presents shortness of breath. Patient states this started on 30 July. In addition to shortness of breath patient complains of progressive generalized weakness persistent cough nausea and diarrhea. Presented to the emergency department in view of worsening symptoms. She tested positive for COVID. Chest x-ray obtained demonstrated patchy bilateral lung opacities. Admitted to monitored bed in view of significant hypoxia for subsequent management Hospital Course: 1. Acute hypoxic respiratory failure due to COVID-19 pneumonia/elevated D-dimer ? Secondary to COVID-19 pneumonia admitted to regular nursing floor placed on supplemental oxygen started on Decadron and remdesivir. ? D-dimer was elevated, CTA of the chest was for PE -08/08/2021;Patient admitted to regular nursing floor with acute hypoxic respiratory failure secondary to COVID-19. Patient is currently requiring high flow oxygen via Airvo. Patient was offered baricitinib by infectious disease patient declined - 08/09/2021; remains on high flow oxygen via Airvo. CTA obtained did demonstrate No evidence of pulmonary embolism. Diffuse bilateral pulmonary infiltrates worse in the left upper lobe andright lower lobe. -08/10/2021; Patient seen no change in her overall condition. Still remains on high flow oxygen via Airvo -08/11/2021; Patient seen no significant change in her overall condition. Still remains on Airvo with FiO2 of 90% with flow rate of 40 L/min -08/12/2021 no change in patient's clinical condition. Patient appears depressed. Patient remains on Airvo with flow rate of 50 L/min. -08/13/2021;Patient seen still remains on high flow oxygen Airvo 50 L/min with FiO2 of 83%. ?08/14/2021: Continue with air Vo. She may benefit from BiPAP overnight -08/15/2021: We will recommend BiPAP overnight to maintain oxygenation and improvement. FiO2 is coming down ? 08/16/2021: Continue with air Vo, she is slowly improving. ? 08/17/2021: Down to 10 L high flow nasal cannula, continue to monitor and encourage pulmonary toileting. Completed Decadron ? 08/18/2021: Down to 7 L nasal cannula hold off diuresis neck ?08/19/2021: She required 3 L nasal cannula on ambulation to maintain a sat of 90%. I had an extensive discussion with her on the risk and benefits of going home given her elevated creatinine to 1.59 and her potassium of 5.6. She decided that she would like to go home today. I encouraged her to drink fluids and that we will hold her blood pressure medication as the benazepril can worsen her to renal function. Need to follow-up in 3 to 5 days with her PCP for outpatient monitoring of her renal function. Also recommend that she follow-up with pulmonology in 4 to 6 weeks 2. Chronic kidney disease stage IIIa ? Patient creatinine at baseline. Plan is to monitor closely in view of patient presentation. Patient will be monitored with daily BMPs ? We will continue to monitor renal function and adjust diuresis as necessary 3. Hypothyroidism ? On levothyroxine did continue 4. Essential hypertension ? Did continue with home meds with plan to adjust doses if required Weight / BMI Weight Weight: 222 lb 0.088 oz Body Mass Index (BMI) 35.8 ABG / Lab / Microbiology Data Result Diagrams: 08/17/21 05:14 08/19/21 05:42 Laboratory: Laboratory Results - last 24 hr 08/19/21 05:42: Sodium 134 L, Potassium 5.6 H, Chloride 103, Carbon Dioxide 28.0, Anion Gap 3 L, BUN 59 H, Creatinine 1.59 H, Estim Creat Clear Calc 31.70, Est GFR (MDRD) Af Amer 41 L, Est GFR (MDRD) Non-Af 34 L, BUN/Creatinine Ratio 37.1 H, Glucose 125 H, Calcium 8.8 Microbiology: Microbiology 08/07/21 06:05 Nasal Secretion SARS-CoV-2 Antigen (Rapid) - Final SARS-CoV-2 (COVID 19) D/C Instructions Discharge Diet: Low fat / Low cholesterol Call your doctor if you observe: Fever of 101 or Higher, Shortness of breath, Dizziness, Fainting spells, Swelling in the ankles, Chest pain and Increased palpitations (irregular heartbeat) Meaningful Use Info Meaningful Use Diagnoses (Choose all that apply): None applicable Discharge Plan Admission Admit Date/Time: 08/07/21 06:47 Attending Provider: Neo Murray Primary Care Provider: Kamar Lopez Consulting Providers: Antoni Everett ; Asuncion Carreon NP ; Kamar Guerin ; Mahad Rodriguez Instructions Additional Instructions / Restrictions: Follow-up with your PCP early next week to obtain BMP to monitor your renal function. As discussed your kidney function is a little bit elevated at 1.56 that has remained stable for the last 2 days. Your potassium is also a little bit elevated to 5.6 therefore we will discontinue your combination amlodipine benazepril blood pressure medication until early next week. Discharge Orders/Prescriptions Prescriptions: Continued trazodone 150 mg tablet 75 mg PO QHS RF: 0 tramadol 50 mg tablet 50 - 100 mg PO Q8H PRN PRN (Reason: Pain) RF: 0 celecoxib 200 mg capsule 200 mg PO DAILY RF: 0 pantoprazole 20 MG tablet 40 mg PO DAILY RF: 0 latanoprost 1 DROP bottle 1 drp EACH EYE QHS RF: 0 levothyroxine 25 MCG tablet 50 mcg PO DAILY RF: 0 vitamin E 400 UNIT capsule 400 unit PO DAILY RF: 0 timolol maleate 1 DROP gel forming solution 1 drp EACH EYE BID RF: 0 omega 0-cxo-rto-fish oil 500 MG capsule,delayed release(DR/EC) 1,200 mg PO BID RF: 0 calcium carbonate 600 MG tablet 1,000 iu PO DAILY RF: 0 vitamin B comp and C no.3 1 EACH capsule 1 ea PO DAILY RF: 0 cholecalciferol (vitamin D3) 2,000 UNIT capsule 1,000 unit PO DAILY RF: 0 digestive 8-L.acidoph-pectin 1 EACH tablet 1 ea PO DAILY RF: 0 acetaminophen 650 mg Tablet 650 mg PO Q4H PRN (Reason: Pain) RF: 0 ascorbic acid (vitamin C) [Vitamin C] 500 mg Tablet 500 mg PO DAILY RF: 0 magnesium 200 mg Tablet 400 mg PO DAILY RF: 0 cholecalciferol (vitamin D3) [Vitamin D3] 10 mcg (400 unit) Capsule 15 mcg PO DAILY RF: 0 cinnamon bark [Cinnamon] 500 mg Capsule 500 mg PO DAILY RF: 0 cranberry juice Liquid 8 ml PO DAILY RF: 0 Plant Enzymes 1 dose PO/SL TIDCM RF: 0 Tumeric 1 cap PO/SL BID RF: 0 dorzolamide-timolol 22.3-6.8 mg/mL drops 1 drp EACH EYE BID RF: 0 Held amlodipine-benazepril 5-20 mg capsule 1 cap PO DAILY RF: 0 Hold Instructions: Resume on 08/23/21. Referrals / Follow Up: Antoni Everett MD [STAFF PHYSICIAN] - Within 3 Months Kamar Lopez DO [Primary Care Provider] - Within 1 Week Disposition Disposition (needs filled in before D/C Order can be placed): Home, Self Care Charges/Coding Visit Charges Inpatient E&M: 75409 Disch Hosp
[2021-08-19 16:31] VITALS: BP 113/60; PULSE 81; RESP 16; TEMP 36.1; O2SAT 93
== END 2021-08-19 18:12 | disposition home or self-care (01) | DRG 177 ==
LOC: ED 07:01 → MS3 07:06
PROVIDERS: Internal Medicine; Internal Medicine Critical Care Medicine; Internal Medicine Infectious Disease; Admitting Provider Hospitalist; Emergency Provider Emergency Medicine; PCP Preventive Medicine Occupational Medicine; Visit Provider Family Medicine
DX: U07.1 COVID-19 (principal); J12.82 Pneumonia due to coronavirus disease 2019; J96.01 Acute respiratory failure with hypoxia; N18.31 Chronic kidney disease, stage 3a; E03.9 Hypothyroidism, unspecified; I12.9 Hypertensive chronic kidney disease with stage 1 through stage 4 chronic kidney disease, or unspecified chronic kidney disease; K21.9 Gastro-esophageal reflux disease without esophagitis; M19.90 Unspecified osteoarthritis, unspecified site; E66.9 Obesity, unspecified; R73.9 Hyperglycemia, unspecified; Z68.35 Body mass index [BMI] 35.0-35.9, adult; Z79.899 Other long term (current) drug therapy; Z79.890 Hormone replacement therapy; Z86.718 Personal history of other venous thrombosis and embolism
CPT/HCPCS: 36415; 36600; 71045; 71275; 80048; 80053; 80076; 82803; 83605; 84075; 85025; 85027; 85379; 86140; 87426; 93005; 94003; 94660; 94667; 94668; 94762; 97110; 97116; 97162; 97166; 97530; 97535; 99251; 99283; J7030; J7040; J7050; Q9967; A4216; G0463; J0248; J1940; J2405

== ENCOUNTER 2021-10-23 12:18 | Outpatient (CLI) | payer MEDICARE, BC, SELFPAY ==
[2021-10-23 12:40] VITALS: PULSE 100; PULSE 69; PULSE 74; PULSE 94; PULSE 97; PULSE 98; PULSE 99; O2SAT 96; O2SAT 97; O2SAT 98; O2SAT 99
--- NOTE | 2021-10-23 16:36 | PCM.PSN.6M ---
PSN 6 Minute Walk Test 6 Minute Walk Test 6 Minute Walk Test: 6 Minute Walk Test PSN:6-Minute Walk Test Start: 10/23/21 12:40 Freq: Status: Active Protocol: [id number] Document 10/23/21 12:40 LIZBETHEDGAR (Rec: 10/23/21 12:42 VINNIEVINICIOEDGAR [id number]) 6 Minute Walk Test Date Performed 10/23/21 Time Performed 12:30 Height 5 ft 6.5 in Weight: 99.79 kg Weight in Pounds 220.[address]: Antoni Everett Assistive device used: None Pre-test Oxygen Delivery Method Room Air Pulse Ox (%) 99 Pulse Rate (60-100 beats/min) 69 Dyspnea Kasandra Scale (0-10) 0 Exertion Kasandra Scale (6-20) 6 1st minute Oxygen Delivery Method Room Air Pulse Ox (%) 98 Pulse Rate (60-100 beats/min) 94 2nd minute Oxygen Delivery Method Room Air Pulse Ox (%) 97 Pulse Rate (60-100 beats/min) 100 3rd minute Oxygen Delivery Method Room Air Pulse Ox (%) 97 Pulse Rate (60-100 beats/min) 100 4th minute Oxygen Delivery Method Room Air Pulse Ox (%) 96 Pulse Rate (60-100 beats/min) 99 5th minute Oxygen Delivery Method Room Air Pulse Ox (%) 96 Pulse Rate (60-100 beats/min) 98 6th minute Oxygen Delivery Method Room Air Pulse Ox (%) 96 Pulse Rate (60-100 beats/min) 97 Dyspnea Kasandra Scale (0-10) 2 Exertion Kasandra Scale (6-20) 12 Post-test Oxygen Delivery Method Room Air Pulse Ox (%) 98 Pulse Rate (60-100 beats/min) 74 Full Laps Walked 16 Partial Lap, Number of Tiles Walked 35 Total Distance Walked (ft) 979 Interpretation Interpretation: The patient was able to travel 979 feet over the course of 6 minutes on room air with no assistive devices or breaks. The patient experienced no significant desaturation, but did have some tachycardia as high as 100 bpm. These findings are consistent with deconditioning. Recommendations Recommendations: No supplemental oxygen is indicated at this time.
== END 2021-10-23 23:59 | disposition home or self-care (01) ==
LOC: PSN 12:20
PROVIDERS: PCP Preventive Medicine Occupational Medicine; Referring Provider Internal Medicine Critical Care Medicine; Visit Provider Internal Medicine Critical Care Medicine
DX: J96.01 Acute respiratory failure with hypoxia (principal)
CPT/HCPCS: 94618

== ENCOUNTER → 2023-06-10 | Outpatient (CLI) | payer MEDICARE, BC, SELFPAY ==
--- NOTE | 2023-06-10 12:36 | EKG12_ITS ---
Test Reason : PREOP Blood Pressure : / mmHG Vent. Rate : 058 BPM Atrial Rate : 058 BPM P-R Int : 158 ms QRS Dur : 082 ms QT Int : 420 ms P-R-T Axes : 059 000 085 degrees QTc Int : 412 ms Sinus bradycardia Otherwise normal ECG Confirmed by DESIRAE ABERNATHY, SUKHI ([id number]), advertising editor LENI JEFFRIES ([id number]) on 06/19/2023 9:47:15 AM Referred By: Fransico Bustamante Confirmed By:SUKHI MERRILL MD
--- NOTE | 2023-06-10 12:38 | RAD_ITS ---
STUDY: X-RAY CHEST REASON FOR EXAM: Female, 72 years old. PREOP TECHNIQUE: PA and lateral views of the chest. COMPARISON: 08/07/2021. FINDINGS: Minimal left basilar atelectasis, otherwise the lungs are clear and expanded. There is no demonstrated pleural abnormality. Normal size heart. Normal mediastinum and mesha. Normal visualized pulmonary arteries. There is atherosclerotic calcification of the aortic arch with tortuosity. There are diffuse degenerative changes of the visualized thoracic spine. There is degenerative osteoarthritis of the bilateral shoulders. Diffuse osteopenia. There is no demonstrated abnormality of the visualized soft tissue structures of the upper abdomen. RAD/Chest PA and Lateral IMPRESSION: Minimal left basilar atelectasis, otherwise no acute cardiopulmonary disease. Electronically Signed: Rosaura Corrales MD at 20:31 EST ,
[2023-06-10 13:46] LABS: Absolute Lymphocyte Count 1.08 X10^3/uL (0.83-4.51); Absolute Neutrophil Count 4.8 X10^3/uL (2.0-7.7); Basophil# 0.07 X10^3/uL; Basophil% 1.1 % (0-1); Eosinophil# 0.17 X10^3/uL; Eosinophils% 2.6 % (0-5); Hematocrit 45.7 % (37-47); Hemoglobin 14.6 g/dL (12.0-15.0); Lymphocyte # 1.08 X10^3/ul (0.83-4.51); Lymphocyte % 16.5 % (19-41); Mean Corp Hgb Conc 31.9 g/dL (32-36); Mean Corpuscular Hgb 29.7 pg (27.0-32.0); Mean Corpuscular Volume 92.9 fL (81-99); Mean Platelet Vol. 10.7 fl (6.2-12.0); Monocyte# 0.43 X10^3/uL; Monocyte% 6.6 % (0-10); NRBC Flagged by Analyzer 0 % (0-5); Neutrophil # 4.79 X10^3/uL (2.7-7.7); Neutrophil % 72.9 % (47-70); Platelet Count 281 K/mm3 (150-450); RBC Distribution Width CV 14.6 % (11.6-14.6); RBC Distribution Width SD 50.5 fl (35.1-43.9); Red Blood Count 4.92 M/mm3 (4.2-5.4); White Blood Count 6.6 K/mm3 (4.4-11.0)
[2023-06-10 14:15] LABS: Anion Gap 7 (5-15); BUN 24 mg/dL (7-18); BUN/Creat Ratio 16.8 RATIO (10-20); Calcium,Total 9.1 mg/dL (8.5-10.1); Chloride 108 mmol/L (98-107); Creatinine, Serum 1.43 mg/dL (0.55-1.02); EST Glomerular Filtration Rate 39 mL/min (>60); Est Glom Filt Rate - Afr Amer 47 mL/min (>60); Glucose 111 mg/dL (74-106); Potassium 4.2 mmol/L (3.5-5.1); Sodium Level 142 mmol/L (136-145)
[2023-06-10 15:03] LABS: International Normalized Ratio 1.2; Prothrombin Time (Protime)PT. 15.5 SECONDS (11.7-14.9)
== END | disposition home or self-care (01) ==
PROVIDERS: PCP Preventive Medicine Occupational Medicine; Referring Provider Orthopaedic Surgery; Visit Provider Orthopaedic Surgery
DX: Z01.818 Encounter for other preprocedural examination (principal); M46.96 Unspecified inflammatory spondylopathy, lumbar region; M51.26 Other intervertebral disc displacement, lumbar region; M48.061 Spinal stenosis, lumbar region without neurogenic claudication; M96.1 Postlaminectomy syndrome, not elsewhere classified; M54.16 Radiculopathy, lumbar region; M51.36 Other intervertebral disc degeneration, lumbar region; R20.2 Paresthesia of skin; Z01.810 Encounter for preprocedural cardiovascular examination; Z01.811 Encounter for preprocedural respiratory examination; Z01.812 Encounter for preprocedural laboratory examination; Z86.718 Personal history of other venous thrombosis and embolism; I10 Essential (primary) hypertension
CPT/HCPCS: 36415; 71046; 80048; 85025; 85610; 93005

== ENCOUNTER → 2023-06-25 | Outpatient (CLI) | payer MEDICARE, BC, SELFPAY ==
[2023-06-25 11:04] LABS: Partial Thromboplast Time 30.1 Seconds (24.1-36.2)
== END | disposition home or self-care (01) ==
PROVIDERS: PCP Preventive Medicine Occupational Medicine; Referring Provider Orthopaedic Surgery; Visit Provider Orthopaedic Surgery
DX: Z01.812 Encounter for preprocedural laboratory examination (principal)
CPT/HCPCS: 36415; 85730

== ENCOUNTER → 2023-07-30 | Outpatient (CLI) | payer MEDICARE, BC, SELFPAY ==
[2023-07-30 12:40] LABS: Absolute Lymphocyte Count 1.51 X10^3/uL (0.83-4.51); Basophil# 0.11 X10^3/uL; Basophil% 1.5 % (0-1); Eosinophil# 0.27 X10^3/uL; Eosinophils% 3.6 % (0-5); Hematocrit 43.8 % (37-47); Hemoglobin 13.6 g/dL (12.0-15.0); Lymphocyte # 1.51 X10^3/ul (0.83-4.51); Lymphocyte % 20.2 % (19-41); Mean Corp Hgb Conc 31.1 g/dL (32-36); Mean Corpuscular Hgb 28.8 pg (27.0-32.0); Mean Corpuscular Volume 92.6 fL (81-99); Mean Platelet Vol. 10.5 fl (6.2-12.0); Monocyte# 0.55 X10^3/uL; Monocyte% 7.4 % (0-10); NRBC Flagged by Analyzer 0 % (0-5); Neutrophil # 5.02 X10^3/uL (2.7-7.7); Neutrophil % 67.2 % (47-70); Platelet Count 267 K/mm3 (150-450); RBC Distribution Width CV 13.9 % (11.6-14.6); RBC Distribution Width SD 47.5 fl (35.1-43.9); Red Blood Count 4.73 M/mm3 (4.2-5.4); White Blood Count 7.5 K/mm3 (4.4-11.0)
[2023-07-30 12:49] LABS: Partial Thromboplast Time 29.3 Seconds (24.1-36.2)
[2023-07-30 12:52] LABS: International Normalized Ratio 1.1; Prothrombin Time (Protime)PT. 13.9 SECONDS (11.7-14.9)
[2023-07-30 13:11] LABS: Anion Gap 7 (5-15); BUN 28 mg/dL (7-18); BUN/Creat Ratio 19.6 RATIO (10-20); Calcium,Total 9.1 mg/dL (8.5-10.1); Chloride 107 mmol/L (98-107); Creatinine, Serum 1.43 mg/dL (0.55-1.02); EST Glomerular Filtration Rate 39 mL/min (>60); Est Glom Filt Rate - Afr Amer 47 mL/min (>60); Glucose 100 mg/dL (74-106); Potassium 4.2 mmol/L (3.5-5.1); Sodium Level 140 mmol/L (136-145)
== END | disposition home or self-care (01) ==
LOC: LAB.FUTURE 11:23 → LAB 11:27
PROVIDERS: PCP Preventive Medicine Occupational Medicine; Referring Provider Orthopaedic Surgery; Visit Provider Orthopaedic Surgery
DX: Z01.818 Encounter for other preprocedural examination (principal); M46.96 Unspecified inflammatory spondylopathy, lumbar region; Z01.812 Encounter for preprocedural laboratory examination; Z01.810 Encounter for preprocedural cardiovascular examination; Z01.811 Encounter for preprocedural respiratory examination; M51.26 Other intervertebral disc displacement, lumbar region; M48.061 Spinal stenosis, lumbar region without neurogenic claudication; M96.1 Postlaminectomy syndrome, not elsewhere classified; M54.16 Radiculopathy, lumbar region; M51.36 Other intervertebral disc degeneration, lumbar region; R20.2 Paresthesia of skin; I10 Essential (primary) hypertension; E07.9 Disorder of thyroid, unspecified; Z86.718 Personal history of other venous thrombosis and embolism; Z79.899 Other long term (current) drug therapy; Z79.890 Hormone replacement therapy
CPT/HCPCS: 36415; 80048; 85025; 85610; 85730